=== PATIENT | female | born 1955 | race Caucasian/White ===

== ENCOUNTER 2020-05-15 08:38 | Inpatient (IN) | payer SELFPAY ==
[~2020-05-15] VITALS: Ht 154.9 cm; Wt 131.5 kg
[2020-05-15] VITALS (28 sets, daily range): BP systolic 74–116; BP diastolic 42–61
[2020-05-15] MEDS ORDERED: ACETAMINOPHEN 650 MG SUPP PR PRN (13:45)
[2020-05-15 13:47] LABS: ABG BASE EXCESS -2.1 (-2.0-2.0); ABG HCO3 24.3 MEQ/L (22.0-26.0); ABG O2 SATURATION 89.8 % (95.0-99.0); ABG PARTIAL PRESSURE CO2 48.9 mmHg (35.0-45.0); ABG PARTIAL PRESSURE O2 59.2 mmHg (75.0-100.0); ABG STANDARD HCO3 22.5 MEQ/L (22.0-26.0); ABG TOTAL CO2 25.8 MEQ/L (23.0-31.0); ABG pH (ARTERIAL) 7.315 UNITS (7.350-7.450)
--- NOTE | 2020-05-15 13:56 | REP ---
INDICATION: ETT. COMPARISON: None. TECHNIQUE: AP sitting portable exam. FINDINGS: Endotracheal tube is seen in good position at the level of the top of the arch. A nasogastric 2 is seen entering the left upper quadrant of the abdomen. Monitoring electrodes are noted along with oxygen delivery tubing. There is a pattern of extensive infiltrate occupying much of the right lung. There is some volume loss the right hemithorax as well. Air bronchograms are present throughout the right lung infiltrates. There is milder patchy perihilar infiltrate on the left as well. Right hemidiaphragm is slightly elevated. No bony abnormality. IMPRESSION: Extensive pneumonia right lung. Patchy infiltrate left perihilar region. Volume loss in the right hemithorax with air bronchograms. Endotracheal and nasogastric tubes appear in good position. <Electronically signed by Jean Chavez > 05/15/20 0419
[2020-05-15] MEDS: MIDAZOLAM INJ 2MG/2ML VIAL (J2250 PER 1MG) IV PRN ×4 (14:00→20:22)
[2020-05-15 14:07] LABS: BASO % 0.3 % (0.0-1.0); EOS # 0.1 10^3/uL (0.0-0.5); EOS % 0.8 % (0.0-3.0); HEMATOCRIT 38.4 % (36.0-47.0); HEMOGLOBIN 11.6 g/dl (12.0-15.5); LYMPH % 7.7 % (24.0-44.0); MEAN CORPUSCULAR HEMOGLOBIN 27.7 pg (27.0-33.0); MEAN CORPUSCULAR HGB CONC 30.2 g/dl (32.0-36.5); MEAN CORPUSCULAR VOLUME 91.6 fl (80.0-96.0); MONO # 0.5 10^3/uL (0.0-0.8); MONO % 3.8 % (0.0-5.0); NEUTROPHILS # 11.4 10^3/uL (1.5-8.5); PLATELET COUNT, AUTOMATED 292 10^3/uL (150-450); RED BLOOD COUNT 4.19 10^6/uL (4.00-5.40); WHITE BLOOD COUNT 13.3 10^3/uL (4.0-10.0)
[2020-05-15] MEDS ORDERED: MORPHINE 2 MG/ML 1ML VIAL (J2270) As Ordered ONE (14:14)
[2020-05-15] MEDS ORDERED: VITA250T4 PO (14:16)
[2020-05-15] MEDS ORDERED: METO50TA7 PO (14:16)
[2020-05-15] MEDS ORDERED: OCUV1CAP3 PO (14:16)
[2020-05-15] MEDS ORDERED: GARL500C2 PO (14:16)
[2020-05-15] MEDS: MORPHINE 2 MG/ML 1ML VIAL (J2270) IV PRN (14:21)
[2020-05-15] MEDS ORDERED: GLUCOSE 4GM CHEW TABLET PO PRN (14:30)
[2020-05-15] MEDS ORDERED: DEXTROSE 50% 50 ML SYRINGE IV PRN (14:30)
[2020-05-15] MEDS ORDERED: GLUCAGON INJ 1MG VIAL SC PRN (14:30)
[2020-05-15 14:54] LABS: ALBUMIN 1.7 GM/DL (3.2-5.2); ALT/SGPT 24 U/L (12-78); BILIRUBIN,TOTAL 0.3 MG/DL (0.2-1.0); BLOOD UREA NITROGEN 20 MG/DL (7-18); CALCIUM LEVEL 8.2 MG/DL (8.8-10.2); CARBON DIOXIDE LEVEL 24 MEQ/L (21-32); CHLORIDE LEVEL 109 MEQ/L (98-107); CHOLESTEROL LEVEL 120 MG/DL (< 200); CPK CREATINE PHOSPHOKINASE 53 U/L (26-192); CREATININE FOR GFR 0.92 MG/DL (0.55-1.30); GLOMERULAR FILTRATION RATE > 60.0 (>45); GLUCOSE, FASTING 141 MG/DL (70-100); LDH LACTATE DEHYDROGENASE 358 U/L (84-246); PHOSPHORUS LEVEL 5.2 MG/DL (2.5-4.9); POTASSIUM SERUM 4.9 MEQ/L (3.5-5.1); SODIUM LEVEL 140 MEQ/L (136-145); TOTAL PROTEIN 6.2 GM/DL (6.4-8.2); TRIGLYCERIDES LEVEL 134 MG/DL (<150)
[2020-05-15] MEDS: cefTRIAXone SOD 1 GM in D5W MINI-BAG PLUS 50 ML IV SCH (14:58)
[2020-05-15 15:23] LABS: ABG BASE EXCESS -1.6 (-2.0-2.0); ABG HCO3 24.7 MEQ/L (22.0-26.0); ABG O2 SATURATION 94.9 % (95.0-99.0); ABG PARTIAL PRESSURE CO2 48.5 mmHg (35.0-45.0); ABG PARTIAL PRESSURE O2 74.5 mmHg (75.0-100.0); ABG STANDARD HCO3 23.1 MEQ/L (22.0-26.0); ABG TOTAL CO2 26.2 MEQ/L (23.0-31.0); ABG pH (ARTERIAL) 7.325 UNITS (7.350-7.450)
[2020-05-15] MEDS: IPRATROPIUM 0.5MG/ALBUTEROL 2.5MG INH SOL UD 3ML (DUONEB) NEB SCH ×2 (15:31→19:44)
[2020-05-15] MEDS: propofoL 1,000 MG in IV 1 EA IV SCH (16:55)
[2020-05-15] MEDS ORDERED: NS 250 ML IV ONE (18:00)
[2020-05-15] MEDS: HumaLOG INSULIN (NovoLOG) PER UNIT SC SCH ×2 (18:00→23:32)
[2020-05-15] MEDS: PANTOPRAZOLE 40MG VIAL (C9113 PER 1) IV SCH (20:07)
[2020-05-15] MEDS: CHLORHEXIDINE GLUCONATE 0.12 % 15ML UDC (PERIDEX ORAL RINSE) MT SCH (20:08)
[2020-05-15] MEDS: HEPARIN SOD (PORCINE) 5000UNITS/ML 1ML VIAL/SYRINGE SC SCH (20:08)
[2020-05-15] MEDS: D5W/0.9% SODIUM CHLORIDE 1,000 ML IV SCH (20:08)
[2020-05-15] MEDS ORDERED: NS 500 ML IV ONE (23:15)
[2020-05-16] VITALS (55 sets, daily range): BP systolic 79–132; BP diastolic 43–82
[2020-05-16] MEDS: MIDAZOLAM INJ 2MG/2ML VIAL (J2250 PER 1MG) IV PRN ×3 (02:30→14:47)
[2020-05-16] MEDS: cefTRIAXone SOD 1 GM in D5W MINI-BAG PLUS 50 ML IV SCH ×2 (03:05→14:47)
[2020-05-16] MEDS: propofoL 1,000 MG in IV 1 EA IV SCH ×4 (03:48→21:48)
[2020-05-16 05:48] LABS: ABG BASE EXCESS -1.6 (-2.0-2.0); ABG HCO3 22.8 MEQ/L (22.0-26.0); ABG O2 SATURATION 99.3 % (95.0-99.0); ABG PARTIAL PRESSURE CO2 37.1 mmHg (35.0-45.0); ABG PARTIAL PRESSURE O2 190.9 mmHg (75.0-100.0); ABG STANDARD HCO3 23.1 MEQ/L (22.0-26.0); ABG TOTAL CO2 23.9 MEQ/L (23.0-31.0); ABG pH (ARTERIAL) 7.406 UNITS (7.350-7.450)
[2020-05-16] MEDS: HEPARIN SOD (PORCINE) 5000UNITS/ML 1ML VIAL/SYRINGE SC SCH ×3 (06:04→21:48)
[2020-05-16] MEDS: HumaLOG INSULIN (NovoLOG) PER UNIT SC SCH ×3 (06:04→17:49)
[2020-05-16 06:18] LABS: BASO % 0.2 % (0.0-1.0); EOS # 0.1 10^3/uL (0.0-0.5); EOS % 1.5 % (0.0-3.0); HEMATOCRIT 30.4 % (36.0-47.0); LYMPH # 0.9 10^3/uL (1.5-5.0); LYMPH % 10.2 % (24.0-44.0); MEAN CORPUSCULAR HEMOGLOBIN 27.6 pg (27.0-33.0); MEAN CORPUSCULAR HGB CONC 30.6 g/dl (32.0-36.5); MEAN CORPUSCULAR VOLUME 90.2 fl (80.0-96.0); MONO # 0.4 10^3/uL (0.0-0.8); MONO % 4.5 % (0.0-5.0); NEUTROPHILS # 7.4 10^3/uL (1.5-8.5); NEUTROPHILS % 82.7 % (36.0-66.0); PLATELET COUNT, AUTOMATED 262 10^3/uL (150-450); RED BLOOD COUNT 3.37 10^6/uL (4.00-5.40); WHITE BLOOD COUNT 8.9 10^3/uL (4.0-10.0)
[2020-05-16 06:27] LABS: HEMOGLOBIN 9.3 g/dl (12.0-15.5)
[2020-05-16 06:43] LABS: ALBUMIN 1.6 GM/DL (3.2-5.2); BILIRUBIN,TOTAL 0.2 MG/DL (0.2-1.0); CALCIUM LEVEL 7.3 MG/DL (8.8-10.2); CREATININE FOR GFR 1.52 MG/DL (0.55-1.30); GLOMERULAR FILTRATION RATE 36.4 (>45); PHOSPHORUS LEVEL 3.6 MG/DL (2.5-4.9); TOTAL PROTEIN 5.5 GM/DL (6.4-8.2)
[2020-05-16] MEDS: D5W/0.9% SODIUM CHLORIDE 1,000 ML IV SCH ×2 (08:35→18:48)
[2020-05-16] MEDS: IPRATROPIUM 0.5MG/ALBUTEROL 2.5MG INH SOL UD 3ML (DUONEB) NEB SCH ×4 (08:38→19:24)
--- NOTE | 2020-05-16 08:56 | REP ---
INDICATION: ETT. COMPARISON: 05/15/2020 TECHNIQUE: SINGLE PORTABLE AP VIEW OF THE CHEST WAS PERFORMED. FINDINGS: Dense infiltrates throughout the right lung are unchanged. There is a more mild degree of infiltrate the left lower lung zone, unchanged. The heart mediastinum are grossly unchanged. Endotracheal tube appears to be in good position with the tip approximately 2 cm above the karmen. Nasogastric tube traverses into the stomach. IMPRESSION: Stable exam. <Electronically signed by Aditya Herrera > 05/16/20 [id number]
[2020-05-16] MEDS: CHLORHEXIDINE GLUCONATE 0.12 % 15ML UDC (PERIDEX ORAL RINSE) MT SCH ×2 (09:30→19:37)
[2020-05-16] MEDS ORDERED: SODIUM CHLORIDE 0.9% 1000ML IV ONE (11:15)
[2020-05-16 11:59] LABS: ABG BASE EXCESS -2.5 (-2.0-2.0); ABG HCO3 22.2 MEQ/L (22.0-26.0); ABG O2 SATURATION 96.9 % (95.0-99.0); ABG PARTIAL PRESSURE CO2 37.7 mmHg (35.0-45.0); ABG PARTIAL PRESSURE O2 89.4 mmHg (75.0-100.0); ABG STANDARD HCO3 22.4 MEQ/L (22.0-26.0); ABG TOTAL CO2 23.4 MEQ/L (23.0-31.0); ABG pH (ARTERIAL) 7.388 UNITS (7.350-7.450)
--- NOTE | 2020-05-16 12:35 | HPE ---
CRITICAL CARE HISTORY AND PHYSICAL NOTE DATE OF ADMISSION: 05/15/2020 SUBJECTIVE: The patient is a 65-year-old female admitted in transfer from [facility] where she presented on the with fever and shortness of breath. Empiric antibiotics were administered. A COVID test was done twice and was found negative. Her fever defervesced. White cell count improved. However, her oxygen requirement increased progressively and today she was found to be in hypoxic respiratory failure. Endotracheal intubation was performed and following the endotracheal tube intubation, she became hypotensive requiring pressors. She was transferred to [facility] for further care. On review of her records, past medical history includes hypertension controlled with metoprolol, and macular degeneration. PHYSICAL EXAMINATION: On arrival she is ill-appearing, sedate with an endotracheal tube in place. Her temperature is 98, pulse rate 114, respirations 28, blood pressure 147/76. Case was reviewed with the transport personnel who indicate that they administered Ketamine on two occasions during the transfer. HEENT: Her pupils are equal and do respond to light. The mucosa is pink. A #8 endotracheal tube is at 24 cm. There is an orogastric tube in good position. Neck is supple. There is no meningismus. No jugular venous distention is obvious. Heart sounds are regular, somewhat distant. No appreciable murmur. Breath sounds diminished, coarse over the entire right chest with some tubular breath sounds much more prominent than over the left hemithorax. Her abdomen is soft and obese. There are bowel sounds in the right lower quadrant. Extremities show some edema. Pulses are diminished but palpable in all four extremities. DIAGNOSTIC STUDIES: We obtained a stat portable chest x-ray which shows her endotracheal tube to be in good position, orogastric tube in good position. There are diffuse patchy infiltrates over the right lung, some subtle patchy infiltrates in the left lower lobe. I obtained a state arterial blood gas and her pH was 7.31, pCO2 48.9, pO2 59, this after 15 minutes of ventilation with pressure control 25/5 with an FiO2 of 1.0. CBC, chemistries and cultures are pending. ASSESSMENT: The primary problem requiring critical attention is acute hypoxic respiratory failure. We will initiate mechanical ventilation with pressure control and increase PEEP based on the current blood gasses, recheck arterial blood gasses thereafter. Infectious Disease/pneumonia: The patient's presentation is consistent with community-acquired pneumonia and she was responding to second generation cephalosporins. We will continue with IV antibiotics, obtain sputum cultures and a respiratory panel. Hypotension: The blood pressure drop may well have been medication-related. Her blood pressure is now better. We will avoid Propofol if possible and sedate with Versed. DVT prophylaxis will be addressed with sequential hose and subcutaneous Heparin. Ulcer prophylaxis will be addressed with Protonix. Glycemic control will be addressed with fingerstick blood sugars and coverage. We will plan for nutritional support once she is hemodynamically stable. The patient's condition is critical. Prognosis is guarded. One hour and 39 minutes were spent in provision of bedside critical care and coordination, exclusive of procedure time. LUISD
--- NOTE | 2020-05-16 14:59 | CCN ---
DATE: 05/16/2020 The patient is seen in the intensive care unit intubated and mechanically ventilated, sedated with propofol and low-dose morphine with use of Versed and morphine as needed. She is critically ill. This is hospital #2, endotracheal tube day #2. At bedside her temperature is 99.1, maximum temperature for the past 24 hours 101, pulse rate 85, respirations 24 with 24 delivered, blood pressure 105/61. Intake and output for the past 24 hours are 909 in, 464 out, since midnight, 1098 in, 114 out. At bedside she is ill appearing. Oral mucosa is pink. The endotracheal tube is at 23 cm. There is an orogastric tube in place. Neck is supple. No meningismus. Heart sounds are regular. Monitor shows a sinus rhythm with occasional ectopy. Breath sounds are asymmetric with more coursing over the right side than the left. There are some crepitant rales in the bases, but air exchange is much improved over the past 12 hours. Gastrointestinal (GI): Abdomen is soft with bowel sounds in the right lower quadrant. Extremities are cool. No significant change. Muscle tone is fair. Pulses are palpable times four. DIAGNOSTIC STUDIES: Sodium is 142, potassium 4.0, chloride 110, CO2 of 25, BUN is 30, creatinine 1.52, glucose 149, range 117-175. The calcium is 7.3, phosphorus 3.6. Bilirubin 0.2, AST 27, ALT 18, alkaline phosphatase is down at 189. LDH is down at 242. Albumin is 1.6. CBC showed a white count of 8.9, down from 13.4, hemoglobin is 9.3, hematocrit 30.4, platelet count 262. Differential white cell count shows 82.7% neutrophils. An arterial blood gas shows a pH 7.40, pCO2 of 37, pO2 of 190. This on pressure control mode of ventilation. Radiographic review: I see little change in the image from yesterday. Formal report is pending. Microbiology review: Respiratory panel, including COVID testing, was negative, and Gram stain of the sputum showed no organisms. Culture is pending. On medications review, she is receiving DuoNeb every 8 hours, subcutaneous heparin 5000 every 8, Protonix 40 mg a day, ceftriaxone 1 gram every 12, morphine 2 mg as needed, propofol drip, and an intravenous (IV) of D5 and saline at 80 mL per hour. The primary problem requiring critical attention s acute respiratory failure with hypoxemia. The patient's gas exchange is improved. We will decrease her ventilating pressures and recheck arterial blood gases Pneumonia, multilobar. Gram stain is negative at this point. Respiratory panel is negative, including COVID testing. Will continue with ceftriaxone pending sputum cultures and obtain a blood culture if her temperature reaches 101. Acute kidney injury. Will give an additional bolus of saline at this point. I believe the change in renal indices is related to intravascular volume depression. We will watch closely her urine output in response to the bolus. Nutritional support was started. Will increase her tube feed rates to 60. Deep venous thrombosis (DVT) prophylaxis is in place with sequential hose and subcutaneous heparin. Ulcer prophylaxis is in place with Protonix. Glycemic control is acceptable. The patient remains critically ill. Prognosis is guarded. There was 1 hour and 26 minutes spent in the provision of bedside critical care and coordination. [facility]PITALNéstor
[2020-05-16] MEDS: MORPHINE 2 MG/ML 1ML VIAL (J2270) IV PRN ×2 (17:31→17:48)
[2020-05-16] MEDS: PANTOPRAZOLE 40MG VIAL (C9113 PER 1) IV SCH (19:37)
[2020-05-16] MEDS: ACETAMINOPHEN 325 MG/10.15 ML UDC GT PRN (19:59)
[2020-05-17] VITALS (33 sets, daily range): BP systolic 81–160; BP diastolic 51–71
[2020-05-17] MEDS: HumaLOG INSULIN (NovoLOG) PER UNIT SC SCH ×4 (00:12→17:05)
[2020-05-17] MEDS: MORPHINE 2 MG/ML 1ML VIAL (J2270) IV PRN (01:27)
[2020-05-17] MEDS: cefTRIAXone SOD 1 GM in D5W MINI-BAG PLUS 50 ML IV SCH ×2 (03:48→17:04)
[2020-05-17 04:29] LABS: BASO % 0.3 % (0.0-1.0); EOS # 0.3 10^3/uL (0.0-0.5); EOS % 3.1 % (0.0-3.0); HEMATOCRIT 29.6 % (36.0-47.0); LYMPH # 1.2 10^3/uL (1.5-5.0); LYMPH % 12.7 % (24.0-44.0); MEAN CORPUSCULAR HEMOGLOBIN 28.3 pg (27.0-33.0); MEAN CORPUSCULAR HGB CONC 30.4 g/dl (32.0-36.5); MEAN CORPUSCULAR VOLUME 93.1 fl (80.0-96.0); MONO # 0.6 10^3/uL (0.0-0.8); MONO % 6.3 % (0.0-5.0); NEUTROPHILS % 76.1 % (36.0-66.0); PLATELET COUNT, AUTOMATED 254 10^3/uL (150-450); RED BLOOD COUNT 3.18 10^6/uL (4.00-5.40); WHITE BLOOD COUNT 9.3 10^3/uL (4.0-10.0)
[2020-05-17] MEDS: propofoL 1,000 MG in IV 1 EA IV SCH ×5 (04:46→21:24)
[2020-05-17 05:13] LABS: ALBUMIN 1.3 GM/DL (3.2-5.2); BILIRUBIN,TOTAL 0.3 MG/DL (0.2-1.0); CALCIUM LEVEL 7.4 MG/DL (8.8-10.2); CREATININE FOR GFR 1.27 MG/DL (0.55-1.30); GLOMERULAR FILTRATION RATE 44.8 (>45); PHOSPHORUS LEVEL 2.9 MG/DL (2.5-4.9); POTASSIUM SERUM 4.6 MEQ/L (3.5-5.1); TOTAL PROTEIN 5.6 GM/DL (6.4-8.2)
[2020-05-17 05:48] LABS: ABG BASE EXCESS -2.5 (-2.0-2.0); ABG HCO3 22.2 MEQ/L (22.0-26.0); ABG O2 SATURATION 96.9 % (95.0-99.0); ABG PARTIAL PRESSURE CO2 38.2 mmHg (35.0-45.0); ABG STANDARD HCO3 22.3 MEQ/L (22.0-26.0); ABG TOTAL CO2 23.4 MEQ/L (23.0-31.0); ABG pH (ARTERIAL) 7.383 UNITS (7.350-7.450)
[2020-05-17] MEDS: HEPARIN SOD (PORCINE) 5000UNITS/ML 1ML VIAL/SYRINGE SC SCH ×3 (06:07→20:52)
[2020-05-17] MEDS: MIDAZOLAM INJ 2MG/2ML VIAL (J2250 PER 1MG) IV PRN ×3 (06:12→20:52)
[2020-05-17] MEDS: D5W/0.9% SODIUM CHLORIDE 1,000 ML IV SCH ×2 (07:14→17:04)
[2020-05-17] MEDS: IPRATROPIUM 0.5MG/ALBUTEROL 2.5MG INH SOL UD 3ML (DUONEB) NEB SCH ×4 (07:17→19:32)
--- NOTE | 2020-05-17 07:49 | REP ---
INDICATION: ETT. COMPARISON: 05/16/2020 and 05/15/2020.. TECHNIQUE: Single AP sitting view. FINDINGS: Endotracheal tube is seen in good position 2 cm above the karmen at the level of the transverse aorta. NG tube enters the left upper quadrant. There is extensive infiltrate throughout the right hemithorax and increasing infiltrates are noted in the left parahilar region today. IMPRESSION: Increasing left parahilar infiltrates. Extensive opacification remains in the right lung. <Electronically signed by Jean Chavez > 05/17/20 [id number]
[2020-05-17] MEDS ORDERED: LIDOCAINE 2% MDV 20ML VIAL As Ordered ONE (09:38)
[2020-05-17] MEDS: CHLORHEXIDINE GLUCONATE 0.12 % 15ML UDC (PERIDEX ORAL RINSE) MT SCH ×2 (10:14→20:51)
[2020-05-17] MEDS ORDERED: MIDAZOLAM INJ 2MG/2ML VIAL (J2250 PER 1MG) IV ONE (10:30)
[2020-05-17] MEDS ORDERED: LIDOCAINE 2% MDV 20ML VIAL XX ONE (10:30)
--- NOTE | 2020-05-17 13:56 | CCN ---
DATE: 05/17/2020 SUBJECTIVE: The patient was seen in the Intensive Care Unit intubated, mechanically ventilated and sedate to a Pierce level 2, comfortable and cooperative with interventions from nursing. OBJECTIVE: Her temperature is 98.6. T-max for the past 24 hours 101.4. Pulse rate 82, respirations 25, blood pressure 108/59. I and O for the past 24 hours 4172 in and 679 out, since midnight 1028 in and 185 out. At bedside, she is ill appearing. Her neck is supple. No meningismus. There is a #7 endotracheal tube at 23 cm. Orogastric tube is in good position. Neck is supple. No meningismus. Heart sounds are regular with occasional ectopy on the monitor. Breath sounds are coarse on the right, more clear on the left with some scattered rhonchi. Abdomen is soft with intact bowel sounds. No palpable mass. Extremities are cool. Pulses are palpable x4. DIAGNOSTIC STUDIES: Her white cell count is about the same today at 9.3. Hemoglobin is down slightly at 9. Hematocrit 29.6. Platelet count is 254,000. Differential. White cell count shows 76% neutrophils. There are no bands reported. Her sodium is 142, potassium 4.6, chloride 115, CO2 20, BUN 30, creatinine 1.27 down from 1.52. Glucose is 118, range 113 to 175. Her calcium is 7.4, albumin 1.3, AST 35, ALT 20, alkaline phosphatase 238, LDH 387. Arterial blood gas showed a pH of 7.38, pCO2 38, pO2 87, and pressure control was 60% oxygen. Chest imaging was performed and shows little change from yesterday, perhaps a slight increase in the left base infiltrates. Microbiology review reveals sputum showing no bacteria and respiratory panel negative. MEDICATIONS: On medication review, this is day #3 of ceftriaxone. She is receiving subcutaneous heparin, Protonix 40 mg a day, Propofol drip, DuoNebs q.i.d., and midazolam as needed. ASSESSMENT/PLAN: The primary problem requiring critical attention is acute respiratory failure. Her A-a gradient remains elevated, but arterial blood gases at this point are acceptable so we will continue with the current ventilator settings pending any clinical change. Pneumonia: She has multilobar involvement with infiltrates, but so far cultures are negative. Given her stalled improvement, I have discussed the option of bronchoscopy for pure culture of her lung, and the patient has consented. We will proceed with fiberoptic bronchoscopy for protected brushing and washing. Acute kidney injury: Numbers are better today as is her urine output with adequate hydration. Nutritional support is being addressed with tube feedings at 60 cc per hour. She is tolerating these. There is minimal residual. Glycemic control is acceptable. Will continue with finger stick blood sugars and coverage. DVT prophylaxis is being addressed with both sequential hose and subcutaneous heparin. There is no clinical evidence of DVT. Ulcer prophylaxis being addressed with Protonix as well as tube feedings. The patient's IV access is limited. Given the potential need for prolonged antibiotic therapy, we will ask for a midline catheter to be placed. I have been in contact with the patient's family through Reuben Zaragoza, the designated family underwriting account representative. All questions have been answered. The family is aware of the critical nature of her illness. One hour and 28 minutes was spent in the provision of bedside critical care and coordination, exclusive of procedure time. ARELIS
[2020-05-17] MEDS ORDERED: LIDOCAINE 1% MDV 20ML VIAL As Ordered ONE (14:54)
[2020-05-17] MEDS: PANTOPRAZOLE 40MG VIAL (C9113 PER 1) IV SCH (20:52)
[2020-05-18] VITALS (33 sets, daily range): BP systolic 78–135; BP diastolic 46–63
[2020-05-18] MEDS: HumaLOG INSULIN (NovoLOG) PER UNIT SC SCH ×4 (00:01→17:53)
[2020-05-18] MEDS: MIDAZOLAM INJ 2MG/2ML VIAL (J2250 PER 1MG) IV PRN ×5 (00:29→20:45)
[2020-05-18] MEDS: propofoL 1,000 MG in IV 1 EA IV SCH ×2 (00:47→06:16)
[2020-05-18] MEDS: cefTRIAXone SOD 1 GM in D5W MINI-BAG PLUS 50 ML IV SCH ×2 (02:49→14:42)
[2020-05-18] MEDS: ACETAMINOPHEN 325 MG/10.15 ML UDC GT PRN (03:52)
[2020-05-18] MEDS ORDERED: REFRIGERATOR IV KEYS XX PRN (04:15)
[2020-05-18] MEDS: MIDAZOLAM HCL 100 MG in D5W 80 ML IV SCH (04:54)
[2020-05-18] MEDS: SODIUM CHLORIDE 0.9% INJ 10 ML SYR IV SCH ×2 (04:54→17:53)
[2020-05-18 05:04] LABS: BASO % 0.3 % (0.0-1.0); EOS # 0.3 10^3/uL (0.0-0.5); EOS % 2.2 % (0.0-3.0); HEMATOCRIT 30.8 % (36.0-47.0); HEMOGLOBIN 9.3 g/dl (12.0-15.5); LYMPH # 1.4 10^3/uL (1.5-5.0); LYMPH % 10.4 % (24.0-44.0); MEAN CORPUSCULAR HEMOGLOBIN 28.1 pg (27.0-33.0); MEAN CORPUSCULAR HGB CONC 30.2 g/dl (32.0-36.5); MEAN CORPUSCULAR VOLUME 93.1 fl (80.0-96.0); MONO # 0.8 10^3/uL (0.0-0.8); NEUTROPHILS # 10.8 10^3/uL (1.5-8.5); PLATELET COUNT, AUTOMATED 346 10^3/uL (150-450); RED BLOOD COUNT 3.31 10^6/uL (4.00-5.40); WHITE BLOOD COUNT 13.6 10^3/uL (4.0-10.0)
[2020-05-18 05:24] LABS: BILIRUBIN,TOTAL 0.2 MG/DL (0.2-1.0); CALCIUM LEVEL 7.3 MG/DL (8.8-10.2); CREATININE FOR GFR 1.14 MG/DL (0.55-1.30); GLOMERULAR FILTRATION RATE 50.8 (>45); PHOSPHORUS LEVEL 3.3 MG/DL (2.5-4.9); POTASSIUM SERUM 4.9 MEQ/L (3.5-5.1)
[2020-05-18 05:25] LABS: ALBUMIN 1.6 GM/DL (3.2-5.2); TOTAL PROTEIN 5.6 GM/DL (6.4-8.2)
[2020-05-18 05:28] LABS: ABG BASE EXCESS -4.4 (-2.0-2.0); ABG HCO3 23.2 MEQ/L (22.0-26.0); ABG O2 SATURATION 94.8 % (95.0-99.0); ABG PARTIAL PRESSURE CO2 55.6 mmHg (35.0-45.0); ABG STANDARD HCO3 20.7 MEQ/L (22.0-26.0); ABG TOTAL CO2 24.9 MEQ/L (23.0-31.0); ABG pH (ARTERIAL) 7.238 UNITS (7.350-7.450)
[2020-05-18] MEDS: HEPARIN SOD (PORCINE) 5000UNITS/ML 1ML VIAL/SYRINGE SC SCH ×3 (06:05→21:14)
[2020-05-18] MEDS ORDERED: methylPREDNISolone 125MG 2ML VIAL IV ONE (06:15)
[2020-05-18] MEDS: D5W/0.9% SODIUM CHLORIDE 1,000 ML IV SCH ×2 (06:16→18:45)
[2020-05-18] MEDS: MORPHINE 2 MG/ML 1ML VIAL (J2270) IV PRN ×3 (06:28→20:45)
--- NOTE | 2020-05-18 06:48 | REPVR ---
PROCEDURE INFORMATION: Exam: XR Chest, 1 View Exam date and time: 05/18/2020 6:00 AM Age: 65 years old Clinical indication: Other: Ett TECHNIQUE: Imaging protocol: XR of the chest Views: 1 view. COMPARISON: CR PORTABLE CHEST X-RAY 05/17/2020 6:18 AM FINDINGS: Tubes, catheters and devices: Endotracheal tube, feeding tube, right PICC line again demonstrated. The endotracheal tube terminates 2.6 cm above the karmen. Lungs: COPD and interstitial prominence. Stable asymmetric airspace disease, right greater than left. Pleural space: No significant pleural effusion. Heart/Mediastinum: Cardiac silhouette upper limits of normal in size. Bones/joints: Degenerative change. When correlating with the previous study, no significant interval changes are present. IMPRESSION: Stable appearance of the chest, not significantly changed from 05/17/2020 . Electronically signed by: Wilner Tineo On 05/18/2020 06:48:13 AM
[2020-05-18] MEDS ORDERED: SODIUM CHLORIDE 0.9% 1000ML IV ONE (07:15)
[2020-05-18] MEDS: IPRATROPIUM 0.5MG/ALBUTEROL 2.5MG INH SOL UD 3ML (DUONEB) NEB SCH ×4 (07:35→19:28)
[2020-05-18 08:08] LABS: ABG BASE EXCESS -5.2 (-2.0-2.0); ABG HCO3 21.4 MEQ/L (22.0-26.0); ABG O2 SATURATION 93.9 % (95.0-99.0); ABG PARTIAL PRESSURE CO2 46.8 mmHg (35.0-45.0); ABG PARTIAL PRESSURE O2 73.2 mmHg (75.0-100.0); ABG STANDARD HCO3 20.1 MEQ/L (22.0-26.0); ABG TOTAL CO2 22.9 MEQ/L (23.0-31.0); ABG pH (ARTERIAL) 7.279 UNITS (7.350-7.450)
--- NOTE | 2020-05-18 08:11 | RO ---
DATE OF OPERATION: 05/17/2020 PREOPERATIVE DIAGNOSIS: Panlobular pneumonia with mucous plugging. POSTOPERATIVE DIAGNOSIS: Panlobular pneumonia with mucous plugging. PROCEDURE PERFORMED: Fiberoptic bronchoscopy, SURGEON: Demetrius Regan MD PROCEDURE NOTE: The patient was seen and procedure explained to the patient as were all the possible complications pertaining thereto and informed consent was obtained. The patient was on mechanical ventilation at the time and endotracheal tube was in place. Fiberoptic bronchoscope was prepared and placed through the endotracheal tube and into the trachea. The karmen was sharp, the end of the endotracheal tube was found in optimal position proximal to the karmen. The airways of the left and right lung were examined in subsegmental fashion for any evidence of tumor, ulcer, necrosis, vessel engorgement or mucosal irregularity. The only findings were of hyperemic mucosa with some scattered mucous, some plugging of the small airways was appreciated. There was no gross pus appreciated. The bronchoscope was placed into the right lower lobe and transbronchoscopic plug telescoping catheter microbiologic brush was obtained. The sample was transported sterilely to the lab. The airways were then lavaged with saline. When no further secretions could be removed the bronchoscope was retracted out through the patients endotracheal tube. She tolerated the procedure well, there were no complications. ARELIS
[2020-05-18] MEDS: CHLORHEXIDINE GLUCONATE 0.12 % 15ML UDC (PERIDEX ORAL RINSE) MT SCH ×2 (08:19→21:14)
[2020-05-18 10:58] LABS: C REACTIVE PROTEIN QUANTITATIV 18.9 MG/DL (0.00-0.30)
[2020-05-18 12:37] LABS: ABG BASE EXCESS -6.9 (-2.0-2.0); ABG HCO3 19.3 MEQ/L (22.0-26.0); ABG O2 SATURATION 93.4 % (95.0-99.0); ABG PARTIAL PRESSURE CO2 41.3 mmHg (35.0-45.0); ABG PARTIAL PRESSURE O2 70.7 mmHg (75.0-100.0); ABG STANDARD HCO3 18.8 MEQ/L (22.0-26.0); ABG TOTAL CO2 20.5 MEQ/L (23.0-31.0); ABG pH (ARTERIAL) 7.287 UNITS (7.350-7.450)
--- NOTE | 2020-05-18 14:15 | CCN ---
DATE: 05/18/2020 SUBJECTIVE: The patient was seen in the Intensive Care Unit intubated, mechanically ventilated, and critically ill. She had a difficult night with rapid respiratory rate requiring changes in sedation and ventilating pressures. PHYSICAL EXAMINATION: At this point, her temperature is 99.7, T-max for the past 24 hours 101.8, pulse rate 81, respirations 38, blood pressure 103/55. I and O for the past 24 hours: 3645 in and 895 out, since midnight 1026 in and 185 out. At bedside, she is ill appearing, sedate. Does respond to voice and moves appropriately. Her oral mucosa is pink. There is a #7 endotracheal tube at 23 cm. Orogastric tube is in good position. Neck is supple. Heart sounds are regular, somewhat distant. No significant ectopy is noted today. Breath sounds are coarse and diminished over the right hemithorax. Some coarseness in the left base. Scattered large airway sounds. No other focal abnormalities appreciated. The chest is symmetric, moves symmetrically. She is triggering the mechanical ventilator spontaneously. Abdomen is soft, obese, with intact bowel sounds. Extremities show no significant edema. Peripheral pulses are palpable x4. DIAGNOSTIC STUDIES: Her white cell count is up slightly at 13.6. Hemoglobin is improved to 9.3. Hematocrit is 30.8. Platelet count is 346,000. Differential: White cell count shows 79% neutrophils. Sodium 145, potassium 4.9, chloride 115, CO2 25, BUN 27, creatinine is down to 1.14. Glucose is 130, range 50-158. AST is up slightly at 50. ALT is normal at 33. Albumin is up at 1.6. Her LDH is down at 315. Phosphorus is normal at 3.3. Bilirubin 0.2. Her calcium is 7.3. An arterial blood gas was performed on pressure control, rate 16, peak pressure 24 with PEEP of 8, FiO2 0.8. The pH was 7.28, pCO2 46, pO2 73. Chest x-ray continues to show heavy infiltrates throughout the right lung, some patchy infiltrates in the left lower lobe, little change from previous images. On microbiology review, washings and brushings as well as previous sputum cultures are all showing no growth at this point. I have asked the lab to do a gram stain on the washings. MEDICATIONS: On medications review, this is day #3 of ceftriaxone. ASSESSMENT AND PLAN: The primary problem requiring critical attention is acute hypoxic respiratory failure. Her A-a gradient remains elevated, and there has been little change in the chest x-ray. Will add steroids as there appears to be a significant inflammatory component. The patient does seem to do better with Versed anesthetic than propofol, and we are weaning over to that. She also responds well to p.r.n. morphine. Multilobar pneumonia: Cultures remain pending. We will continue for the time being with ceftriaxone. Acute kidney injury: Urine output and creatinine are much improved today. She does respond to fluids when urine output begins to lag. Nutritional support is being addressed with tube feedings. She has tolerated 60 cc per hour without significant residual. Fluid volume is positive for the three day hospital stay. However, I believe she came somewhat dehydrated and is at this point approximately euvolemic. Will continue IV fluids at 8 ccs/hr and tube feedings. DVT prophylaxis being addressed with subcutaneous heparin and sequential hose. Glycemic control is acceptable. She had one low blood sugar. We will continue close monitoring with finger stick blood sugars. The patient's condition is critical. Prognosis is guarded. The family will be updated through their field sales representative. One hour and 29 minutes was spent in the provision of bedside critical care and coordination exclusive of any time spent in the performance of procedures. ARELIS
[2020-05-18] MEDS: methylPREDNISolone 125MG 2ML VIAL IV SCH ×2 (14:40→21:14)
--- NOTE | 2020-05-18 15:06 | REP ---
PROCEDURE NAME: PICC LINE INSERTION W/SITERITE CLINICAL INFORMATION: porr iv access. COMPARISON: None. PROCEDURE DESCRIPTION: The procedure was performed by AWA Ruvalcaba, under the direct supervision of Dr. Herrera. The risks and benefits of the procedure were explained to the patient's healthcare proxy via phone and an informed consent was obtained verbally. Directly prior to the start of the procedure a formal time-out was completed in the procedure room. Due to the patient's current status of being intubated the procedure was done in the ICU at bedside. The right medial brachial vein was localized using ultrasound guidance. The skin was prepped and draped in sterile fashion. One mL of 1% lidocaine 10 mg/mL was used as a local anesthetic. Using ultrasound guidance the right medial brachial vein was cannulated, and a 0.018 guidewire was inserted and advanced to the level of SVC using portable chest x-ray guidance. The needle was removed and a 5.5 Croatian dilator and peel-away sheath was inserted over the guidewire. A 5.5 Croatian dual lumen catheter was cut to a length of the 40 cm. The dilator was removed and the catheter was inserted over the guidewire with the tip ending at the level of the SVC. The peel-away sheath was removed and the catheter was flushed with heparinized saline as per hospital protocol. The catheter was affixed to the skin and a sterile dressing was applied. All imaging guidance was done with serial chest x-rays at the patient's bedside. The patient tolerated the procedure well and there were no immediate complications. CONCLUSION: Successful PICC line insertion into the right medial brachial vein. <Electronically signed by Kendra Miller > 05/17/20 [id number] <Electronically signed by Aditya Herrera > 05/18/20 [id number]
[2020-05-18] MEDS: PANTOPRAZOLE 40MG VIAL (C9113 PER 1) IV SCH (21:14)
[2020-05-19] VITALS (23 sets, daily range): BP systolic 118–155; BP diastolic 57–73; O2SAT 90
[2020-05-19] MEDS: HumaLOG INSULIN (NovoLOG) PER UNIT SC SCH ×4 (00:13→17:17)
[2020-05-19] MEDS: cefTRIAXone SOD 1 GM in D5W MINI-BAG PLUS 50 ML IV SCH ×2 (03:24→14:01)
[2020-05-19] MEDS: MIDAZOLAM HCL 100 MG in D5W 80 ML IV SCH (03:32)
[2020-05-19] MEDS: MIDAZOLAM INJ 2MG/2ML VIAL (J2250 PER 1MG) IV PRN ×3 (03:36→20:09)
[2020-05-19] MEDS: MORPHINE 2 MG/ML 1ML VIAL (J2270) IV PRN ×2 (03:37→21:50)
[2020-05-19] MEDS: HEPARIN SOD (PORCINE) 5000UNITS/ML 1ML VIAL/SYRINGE SC SCH ×3 (05:18→21:16)
[2020-05-19] MEDS: SODIUM CHLORIDE 0.9% INJ 10 ML SYR IV SCH ×2 (05:19→16:19)
[2020-05-19] MEDS: methylPREDNISolone 125MG 2ML VIAL IV SCH ×3 (05:19→21:15)
[2020-05-19 05:26] LABS: BASO % 0.1 % (0.0-1.0); HEMATOCRIT 29.2 % (36.0-47.0); HEMOGLOBIN 8.8 g/dl (12.0-15.5); LYMPH # 0.7 10^3/uL (1.5-5.0); LYMPH % 4.8 % (24.0-44.0); MEAN CORPUSCULAR HEMOGLOBIN 27.2 pg (27.0-33.0); MEAN CORPUSCULAR HGB CONC 30.1 g/dl (32.0-36.5); MEAN CORPUSCULAR VOLUME 90.4 fl (80.0-96.0); MONO # 0.3 10^3/uL (0.0-0.8); MONO % 2.1 % (0.0-5.0); NEUTROPHILS # 12.3 10^3/uL (1.5-8.5); NEUTROPHILS % 91.2 % (36.0-66.0); PLATELET COUNT, AUTOMATED 387 10^3/uL (150-450); RED BLOOD COUNT 3.23 10^6/uL (4.00-5.40); WHITE BLOOD COUNT 13.5 10^3/uL (4.0-10.0)
[2020-05-19 06:01] LABS: ALBUMIN 1.5 GM/DL (3.2-5.2); BILIRUBIN,TOTAL 0.3 MG/DL (0.2-1.0); CALCIUM LEVEL 7.9 MG/DL (8.8-10.2); CREATININE FOR GFR 1.02 MG/DL (0.55-1.30); GLOMERULAR FILTRATION RATE 57.7 (>45); PHOSPHORUS LEVEL 3.3 MG/DL (2.5-4.9); POTASSIUM SERUM 4.9 MEQ/L (3.5-5.1); TOTAL PROTEIN 5.9 GM/DL (6.4-8.2)
[2020-05-19 06:06] LABS: ABG BASE EXCESS -2.9 (-2.0-2.0); ABG HCO3 22.6 MEQ/L (22.0-26.0); ABG O2 SATURATION 96.7 % (95.0-99.0); ABG PARTIAL PRESSURE CO2 42.1 mmHg (35.0-45.0); ABG PARTIAL PRESSURE O2 91.4 mmHg (75.0-100.0); ABG TOTAL CO2 23.9 MEQ/L (23.0-31.0); ABG pH (ARTERIAL) 7.347 UNITS (7.350-7.450)
[2020-05-19] MEDS: IPRATROPIUM 0.5MG/ALBUTEROL 2.5MG INH SOL UD 3ML (DUONEB) NEB SCH ×4 (07:30→19:37)
--- NOTE | 2020-05-19 08:00 | REP ---
INDICATION: ETT. COMPARISON: Comparison portable chest x-ray May 18 and May 17, 2020.. TECHNIQUE: Sitting AP portable exam. FINDINGS: Extensive heterogeneous consolidation is seen throughout the right lung as before. Patchy infiltrates are noted in the left perihilar and left lower lobe region. These are felt to be unchanged from May 17, 2020. Endotracheal tube remains in good position. NG tube enters the left upper quadrant. Right-sided PICC catheter is seen in place it with its tip in the expected location of superior vena cava. Oxygen delivery tubing and monitoring electrodes are seen. Heart is mildly enlarged unchanged. IMPRESSION: Extensive infiltrates persist right greater than left. <Electronically signed by Jean Chavez > 05/19/20 [id number]
[2020-05-19] MEDS: CHLORHEXIDINE GLUCONATE 0.12 % 15ML UDC (PERIDEX ORAL RINSE) MT SCH ×2 (09:26→20:14)
[2020-05-19] MEDS: AZITHROMYCIN INJ 500 MG, VIAL MATE ADAPTER 1 EACH in D5W 250 ML IV SCH (09:31)
[2020-05-19] MEDS: D5W/0.9% SODIUM CHLORIDE 1,000 ML IV SCH (09:33)
--- NOTE | 2020-05-19 11:00 | CCN ---
DATE: 05/19/2020 START TIME: 829 STOP TIME: 908 SUBJECTIVE: I attended Katrin Lau in the intensive care unit. The patient has been examined and chart reviewed. She remains intubated, sedated, and mechanically ventilated. We have been able to lighten her sedation somewhat this morning, but she had a significant increase in cough with that resulting in increased FiO2 requirements. VITAL SIGNS: T-max overnight 98.3, blood pressure 120 to 150s, heart rate generally in the 80s, respiratory rate generally in the 20s without accessory muscle use. INTAKE AND OUTPUT (I&O): Midnight to midnight 3918 mL in with 835 mL out. LABORATORY DATA: Most recent laboratories show a white blood cell count of 13.5, hemoglobin 8.8, platelet count of 387,000, 91% segs. No bands. Sodium 145, K 4.9, chloride 115, CO2 of 23, BUN 39, creatinine 1.02, glucose 231. Arterial blood gases done this morning under pressure control mode PEEP of 8, FiO2 of 85%, pH 7.47, pCO2 of 42.1, and pO2 of 91.4 with saturation of 96.7%. Blood cultures remain negative. Bronchial brush cultures are pending. IMAGING: Chest x-ray done this morning shows lines and tubes in good position. No changes in her bilateral fluffy infiltrates, right greater than left. MEDICATIONS: Medication list has been reviewed. She remains on Rocephin. She is on Versed intravenously for sedation. She remains on Solu-Medrol 80 mg IV q. 8 hours. OBJECTIVE: GENERAL: On exam, she is easily arousable, awake, alert, and follows commands. HEENT: Pupils react. Sclerae clear. Trachea is in the midline. CHEST: Shows diffuse scattered rhonchi. Expansion is symmetric. No focal wheeze. No obvious rubs. CARDIAC: Irregular. Peripheral pulses are palpable. Trace edema at best. ABDOMEN: Obese, soft, and nontender with active bowel sounds. No convincing organomegaly or masses. EXTREMITIES: No cyanosis or clubbing. NEUROLOGIC: As outlined above and she is grossly nonfocal. She is currently tolerating tube feeds. No bowel movement as of yet. ASSESSMENT: The most pressing problems requiring my presence at the bedside 1. Hypoxemic respiratory failure still ventilator requiring. 2. Community-acquired pneumonia. 3. History of hypertension. 4. Renal insufficiency, improving. RECOMMENDATIONS: At this point, we will continue her current level of ventilatory support. She is not in any position for aggressive weaning in view of her continued high FiO2 requirements. General manipulations will be made to her ventilator settings as we are able. For now, we will continue her on Rocephin. We may or may not add an antifungal based on her cultures from several days ago, but await her repeat bronchoscopy cultures from yesterday. Her urine output and renal function have improved with increased intravenous (IV) fluids. Hemoglobin mildly diminished and I believe that an element of that is due to her increased IV fluids and a dilutional effect. She is tolerating tube feeds. We will continue as outlined above. She is on ulcer and deep vein thrombosis (DVT) prophylaxis. I will try to communicate with the family spokesperson today and keep them updated. Overall in view of the above; however, her prognosis remains very guarded at best. We will continue to treat her maximally. We will begin weaning as soon as she is able. I left the bedside at 0909 hours. 39 minutes of critical care time at the bedside not including procedures. LUISD
[2020-05-19] MEDS: FLUCONAZOLE 100 MG in IV 1 EA IV SCH (11:11)
[2020-05-19] MEDS: PANTOPRAZOLE 40MG VIAL (C9113 PER 1) IV SCH (20:09)
[2020-05-20] VITALS (25 sets, daily range): BP systolic 111–149; BP diastolic 54–88; O2SAT 92–96
[2020-05-20] MEDS: D5W/0.9% SODIUM CHLORIDE 1,000 ML IV SCH ×3 (01:08→22:18)
[2020-05-20] MEDS: HumaLOG INSULIN (NovoLOG) PER UNIT SC SCH ×4 (01:15→17:15)
[2020-05-20] MEDS: cefTRIAXone SOD 1 GM in D5W MINI-BAG PLUS 50 ML IV SCH ×2 (03:33→14:30)
[2020-05-20] MEDS: MIDAZOLAM HCL 100 MG in D5W 80 ML IV SCH ×3 (04:27→22:49)
[2020-05-20] MEDS: MORPHINE 2 MG/ML 1ML VIAL (J2270) IV PRN ×2 (04:45→21:09)
[2020-05-20 04:46] LABS: BASO % 0.1 % (0.0-1.0); HEMATOCRIT 31.2 % (36.0-47.0); HEMOGLOBIN 9.4 g/dl (12.0-15.5); LYMPH # 0.8 10^3/uL (1.5-5.0); LYMPH % 5.2 % (24.0-44.0); MEAN CORPUSCULAR HEMOGLOBIN 27.2 pg (27.0-33.0); MEAN CORPUSCULAR HGB CONC 30.1 g/dl (32.0-36.5); MEAN CORPUSCULAR VOLUME 90.2 fl (80.0-96.0); MONO # 0.2 10^3/uL (0.0-0.8); MONO % 1.6 % (0.0-5.0); NEUTROPHILS % 90.8 % (36.0-66.0); PLATELET COUNT, AUTOMATED 480 10^3/uL (150-450); RED BLOOD COUNT 3.46 10^6/uL (4.00-5.40); WHITE BLOOD COUNT 15.4 10^3/uL (4.0-10.0)
[2020-05-20 05:13] LABS: ALBUMIN 1.6 GM/DL (3.2-5.2); BILIRUBIN,TOTAL 0.1 MG/DL (0.2-1.0); CALCIUM LEVEL 8.4 MG/DL (8.8-10.2); CREATININE FOR GFR 1.04 MG/DL (0.55-1.30); GLOMERULAR FILTRATION RATE 56.4 (>45); PHOSPHORUS LEVEL 2.6 MG/DL (2.5-4.9); POTASSIUM SERUM 4.9 MEQ/L (3.5-5.1); TOTAL PROTEIN 6.6 GM/DL (6.4-8.2)
[2020-05-20 05:53] LABS: ABG BASE EXCESS -2.9 (-2.0-2.0); ABG HCO3 21.2 MEQ/L (22.0-26.0); ABG O2 SATURATION 99.2 % (95.0-99.0); ABG PARTIAL PRESSURE CO2 34.1 mmHg (35.0-45.0); ABG PARTIAL PRESSURE O2 155.5 mmHg (75.0-100.0); ABG STANDARD HCO3 22.1 MEQ/L (22.0-26.0); ABG TOTAL CO2 22.2 MEQ/L (23.0-31.0); ABG pH (ARTERIAL) 7.411 UNITS (7.350-7.450)
[2020-05-20] MEDS: SODIUM CHLORIDE 0.9% INJ 10 ML SYR IV SCH ×2 (06:00→17:16)
[2020-05-20] MEDS: HEPARIN SOD (PORCINE) 5000UNITS/ML 1ML VIAL/SYRINGE SC SCH ×3 (06:18→21:12)
[2020-05-20] MEDS: methylPREDNISolone 125MG 2ML VIAL IV SCH ×3 (06:20→21:13)
[2020-05-20] MEDS: IPRATROPIUM 0.5MG/ALBUTEROL 2.5MG INH SOL UD 3ML (DUONEB) NEB SCH ×4 (07:13→19:26)
--- NOTE | 2020-05-20 08:17 | REP ---
INDICATION: ETT. COMPARISON: May 19, 2020. And May 18, 2020. TECHNIQUE: Semi-erect upright AP view. FINDINGS: NG tube enters the left upper quadrant of the abdomen. Endotracheal tube is seen in place at today terminating at the karmen. This is a little low in position. Monitoring electrodes are seen. Right-sided PICC catheter remains in place with its tip in the expected location of the superior vena cava. Right-sided infiltrates are again noted extensively throughout the hemithorax unchanged. Perihilar infiltrates and left base infiltrates persist on on the left. No new infiltrate is seen. IMPRESSION: Endotracheal tube tip is at the karmen today. This should probably be withdrawn 2-3 cm. Parenchymal consolidation unchanged. <Electronically signed by Jean Chavez > 05/20/20 [id number]
[2020-05-20] MEDS: BISACODYL 10 MG SUPP PR PRN (10:14)
[2020-05-20] MEDS: CHLORHEXIDINE GLUCONATE 0.12 % 15ML UDC (PERIDEX ORAL RINSE) MT SCH ×2 (10:14→21:13)
[2020-05-20] MEDS: AZITHROMYCIN INJ 500 MG, VIAL MATE ADAPTER 1 EACH in D5W 250 ML IV SCH (10:14)
[2020-05-20] MEDS: FLUCONAZOLE 100 MG in IV 1 EA IV SCH (12:18)
[2020-05-20] MEDS: PANTOPRAZOLE 40MG VIAL (C9113 PER 1) IV SCH (21:13)
[2020-05-20] MEDS: ACETAMINOPHEN 325 MG/10.15 ML UDC GT PRN (21:13)
[2020-05-20] MEDS: METOCLOPRAMIDE INJ 10MG/2ML VIAL (J2765 PER 1) IV SCH (22:17)
[2020-05-21] VITALS (26 sets, daily range): BP systolic 110–142; BP diastolic 55–78; O2SAT 89–96
[2020-05-21] MEDS: HumaLOG INSULIN (NovoLOG) PER UNIT SC SCH ×5 (00:42→23:33)
[2020-05-21] MEDS: MORPHINE 2 MG/ML 1ML VIAL (J2270) IV PRN ×3 (00:42→21:15)
[2020-05-21] MEDS: MIDAZOLAM INJ 2MG/2ML VIAL (J2250 PER 1MG) IV PRN ×3 (01:21→20:23)
[2020-05-21] MEDS: cefTRIAXone SOD 1 GM in D5W MINI-BAG PLUS 50 ML IV SCH ×2 (02:44→14:15)
[2020-05-21] MEDS: METOCLOPRAMIDE INJ 10MG/2ML VIAL (J2765 PER 1) IV SCH ×4 (04:55→21:15)
[2020-05-21] MEDS: HEPARIN SOD (PORCINE) 5000UNITS/ML 1ML VIAL/SYRINGE SC SCH ×3 (05:12→21:14)
[2020-05-21] MEDS: methylPREDNISolone 125MG 2ML VIAL IV SCH ×3 (05:12→21:15)
[2020-05-21] MEDS: SODIUM CHLORIDE 0.9% INJ 10 ML SYR IV SCH ×2 (05:12→17:09)
[2020-05-21 05:30] LABS: ABG BASE EXCESS -2.8 (-2.0-2.0); ABG HCO3 22.1 MEQ/L (22.0-26.0); ABG O2 SATURATION 96.4 % (95.0-99.0); ABG PARTIAL PRESSURE CO2 38.5 mmHg (35.0-45.0); ABG PARTIAL PRESSURE O2 84.4 mmHg (75.0-100.0); ABG STANDARD HCO3 22.1 MEQ/L (22.0-26.0); ABG TOTAL CO2 23.2 MEQ/L (23.0-31.0); ABG pH (ARTERIAL) 7.376 UNITS (7.350-7.450)
[2020-05-21 05:36] LABS: HEMATOCRIT 30.4 % (36.0-47.0); HEMOGLOBIN 9.5 g/dl (12.0-15.5); MEAN CORPUSCULAR HGB CONC 31.3 g/dl (32.0-36.5); MEAN CORPUSCULAR VOLUME 89.7 fl (80.0-96.0); PLATELET COUNT, AUTOMATED 501 10^3/uL (150-450); RED BLOOD COUNT 3.39 10^6/uL (4.00-5.40); WHITE BLOOD COUNT 12.3 10^3/uL (4.0-10.0)
[2020-05-21 06:11] LABS: ALBUMIN 1.8 GM/DL (3.2-5.2); BILIRUBIN,TOTAL 0.1 MG/DL (0.2-1.0); CREATININE FOR GFR 1.06 MG/DL (0.55-1.30); GLOMERULAR FILTRATION RATE 55.2 (>45); PHOSPHORUS LEVEL 3.3 MG/DL (2.5-4.9); POTASSIUM SERUM 5.8 MEQ/L (3.5-5.1); TOTAL PROTEIN 5.8 GM/DL (6.4-8.2)
[2020-05-21] MEDS: IPRATROPIUM 0.5MG/ALBUTEROL 2.5MG INH SOL UD 3ML (DUONEB) NEB SCH ×4 (07:03→19:37)
--- NOTE | 2020-05-21 08:30 | REP ---
INDICATION: ETT. 6:41 a.m. film. COMPARISON: May 20, 2027 05 a.m... TECHNIQUE: Single upright AP radiograph. FINDINGS: Endotracheal tube remains in place in good position at the level of the transverse aorta approximately a cm and half above the karmen. NG tube enters the left upper quadrant. Right sided PICC line remains in place with its tip in the expected location of superior vena cava. Monitoring electrodes and oxygen delivery apparatus are seen. Extensive consolidation persists in the right lung and in the left perihilar region. There appears to be some clearing. No new infiltrate. IMPRESSION: No new infiltrate. Previously noted infiltrates appear a little less prominent. <Electronically signed by Jean Chavez > 05/21/20 2088
[2020-05-21] MEDS: AZITHROMYCIN INJ 500 MG, VIAL MATE ADAPTER 1 EACH in D5W 250 ML IV SCH (09:05)
[2020-05-21] MEDS: CHLORHEXIDINE GLUCONATE 0.12 % 15ML UDC (PERIDEX ORAL RINSE) MT SCH ×2 (09:05→20:23)
[2020-05-21] MEDS: D5W/0.9% SODIUM CHLORIDE 1,000 ML IV SCH ×2 (10:41→23:33)
[2020-05-21] MEDS: FLUCONAZOLE 100 MG in IV 1 EA IV SCH (10:41)
[2020-05-21 11:03] LABS: ABG BASE EXCESS -3.2 (-2.0-2.0); ABG HCO3 21.5 MEQ/L (22.0-26.0); ABG O2 SATURATION 96.9 % (95.0-99.0); ABG PARTIAL PRESSURE CO2 37.3 mmHg (35.0-45.0); ABG PARTIAL PRESSURE O2 89.3 mmHg (75.0-100.0); ABG STANDARD HCO3 21.8 MEQ/L (22.0-26.0); ABG TOTAL CO2 22.7 MEQ/L (23.0-31.0); ABG pH (ARTERIAL) 7.379 UNITS (7.350-7.450)
[2020-05-21 15:48] LABS: CALCIUM LEVEL 8.1 MG/DL (8.8-10.2); CREATININE FOR GFR 1.05 MG/DL (0.55-1.30); GLOMERULAR FILTRATION RATE 55.8 (>45); POTASSIUM SERUM 5.3 MEQ/L (3.5-5.1)
[2020-05-21] MEDS: MIDAZOLAM HCL 100 MG in D5W 80 ML IV SCH (19:11)
[2020-05-21] MEDS: PANTOPRAZOLE 40MG VIAL (C9113 PER 1) IV SCH (20:23)
[2020-05-22] VITALS (19 sets, daily range): BP systolic 128–164; BP diastolic 62–77; O2SAT 97–98
[2020-05-22] MEDS: MIDAZOLAM INJ 2MG/2ML VIAL (J2250 PER 1MG) IV PRN ×5 (01:35→22:31)
[2020-05-22] MEDS: MORPHINE 2 MG/ML 1ML VIAL (J2270) IV PRN ×2 (01:35→19:24)
[2020-05-22] MEDS: cefTRIAXone SOD 1 GM in D5W MINI-BAG PLUS 50 ML IV SCH ×2 (02:28→14:16)
[2020-05-22] MEDS: METOCLOPRAMIDE INJ 10MG/2ML VIAL (J2765 PER 1) IV SCH ×4 (03:45→22:31)
[2020-05-22 04:24] LABS: HEMATOCRIT 30.6 % (36.0-47.0); HEMOGLOBIN 9.3 g/dl (12.0-15.5); MEAN CORPUSCULAR HEMOGLOBIN 27.7 pg (27.0-33.0); MEAN CORPUSCULAR HGB CONC 30.4 g/dl (32.0-36.5); MEAN CORPUSCULAR VOLUME 91.1 fl (80.0-96.0); PLATELET COUNT, AUTOMATED 536 10^3/uL (150-450); RED BLOOD COUNT 3.36 10^6/uL (4.00-5.40); WHITE BLOOD COUNT 13.8 10^3/uL (4.0-10.0)
[2020-05-22] MEDS: SODIUM CHLORIDE 0.9% INJ 10 ML SYR IV SCH ×2 (05:00→17:05)
[2020-05-22 05:12] LABS: ALBUMIN 1.8 GM/DL (3.2-5.2); BILIRUBIN,TOTAL 0.3 MG/DL (0.2-1.0); CALCIUM LEVEL 8.3 MG/DL (8.8-10.2); CREATININE FOR GFR 0.99 MG/DL (0.55-1.30); GLOMERULAR FILTRATION RATE 59.7 (>45); PHOSPHORUS LEVEL 3.5 MG/DL (2.5-4.9); POTASSIUM SERUM 5.3 MEQ/L (3.5-5.1); TOTAL PROTEIN 5.7 GM/DL (6.4-8.2)
[2020-05-22] MEDS: HEPARIN SOD (PORCINE) 5000UNITS/ML 1ML VIAL/SYRINGE SC SCH ×3 (05:20→22:31)
[2020-05-22] MEDS: methylPREDNISolone 125MG 2ML VIAL IV SCH ×3 (05:20→22:31)
[2020-05-22] MEDS: HumaLOG INSULIN (NovoLOG) PER UNIT SC SCH ×3 (05:21→17:50)
[2020-05-22 05:30] LABS: ABG O2 SATURATION 98.4 % (95.0-99.0); ABG PARTIAL PRESSURE CO2 39.1 mmHg (35.0-45.0); ABG PARTIAL PRESSURE O2 120.9 mmHg (75.0-100.0); ABG TOTAL CO2 23.2 MEQ/L (23.0-31.0); ABG pH (ARTERIAL) 7.368 UNITS (7.350-7.450)
[2020-05-22] MEDS: IPRATROPIUM 0.5MG/ALBUTEROL 2.5MG INH SOL UD 3ML (DUONEB) NEB SCH ×4 (07:39→19:50)
--- NOTE | 2020-05-22 07:55 | REP ---
INDICATION: ETT. COMPARISON: May 21, 2020 and. May 20, 2020. TECHNIQUE: Upright AP portable radiograph. FINDINGS: Endotracheal tube is seen in good position at the level of the proximal clavicles. NG tube enters the left upper quadrant. Right-sided PICC line remains in place unchanged in position. Monitoring electrodes and oxygen delivery tubing are seen. Extensive infiltrates persist throughout the right hemithorax and left perihilar region. There does appear to be some clearing compared with the May 20, 2020 study. IMPRESSION: No new infiltrate. Extensive opacification persists unchanged from May 21, 2020. Endotracheal and nasogastric tubes in good position. <Electronically signed by Jean Chavez > 05/22/20 0759
[2020-05-22] MEDS: AZITHROMYCIN INJ 500 MG, VIAL MATE ADAPTER 1 EACH in D5W 250 ML IV SCH (09:56)
[2020-05-22] MEDS: CHLORHEXIDINE GLUCONATE 0.12 % 15ML UDC (PERIDEX ORAL RINSE) MT SCH ×2 (09:56→20:05)
[2020-05-22] MEDS: BISACODYL 10 MG SUPP PR PRN (09:57)
--- NOTE | 2020-05-22 10:17 | CCN ---
DATE: 05/21/2020 START TIME: 0920 hours STOP TIME: 1006 hours I again attended Katrin Whyte here in the intensive care unit. The patient has been examined and the chart reviewed. I have spoken at length with the nurse at the bedside and had a lengthy phone conversation again this morning with the healthcare proxy, Reuben Clay. Maximum temperature (T-max) overnight 99 degrees, blood pressure 110-130s without vasopressor support, heart rate generally is 60s to 80s and respiratory rate anywhere from 16 to the low to mid 20s without accessory muscle use. Intake and output midnight to midnight: 3897 mL in with 1105 mL out. Chest x-ray shows no significant changes compared to yesterday. Laboratories show sodium of 145 with potassium of 5.8, chloride 116, CO2 22, BUN 62, creatinine 1.06, bilirubin 0.1, albumin 1.8 today. White blood cell count further diminished at 12.3, hemoglobin 9.5, and platelet count of 501,000. Blood gas done on pressure control pressure of 24, PEEP of 8, FiO2 of 65% with spontaneous tidal volumes between 650 and 700 shows a pH of 7.376, pCO2 of 38.5, and PaO2 of 84.4. On exam, she is sedate but arousable. Moves all extremities. Pupils reactive. Sclerae clear. Trachea is midline. Chest shows symmetric expansion, reasonable air entry, no focal adventitious breath sounds are identified. Cardiac exam distant but regular. Peripheral pulses diminished but palpable. Abdomen obese, soft with active bowel sounds. No convincing organomegaly or masses. Extremities no cyanosis or clubbing. Neurologically as outlined above. The most pressing problems requiring my presence at the bedside: 1. Respiratory failure requiring mechanical ventilatory support. 2. Community-acquired pneumonia is the cause of respiratory failure requiring mechanical ventilatory support. 3. History of hypertension. 4. Protein calorie malnutrition. 5. Renal insufficiency, improving. At this point, we will make gentle changes in ventilator mode in hopes of beginning the weaning process. Her gas exchange is a little better. She remains on Rocephin, azithromycin, Diflucan, and Solu-Medrol. I spoke at length with the healthcare proxy and updated him as to what the plan is and he is in full agreement with that. He will update the rest of the family. She is tolerating tube feeds. Her residuals are low but she has had no bowel movement yet. She does have cathartics ordered for both above and below. Ulcer and deep venous thrombosis (DVT) prophylaxis remain in place. Her prognosis remains guarded but will proceed as outlined above. I left the bedside at 1006 hours. 46 minutes of critical care time delivered at the bedside not including procedures. ARELIS
[2020-05-22 10:19] LABS: ABG BASE EXCESS -4.1 (-2.0-2.0); ABG O2 SATURATION 95.4 % (95.0-99.0); ABG PARTIAL PRESSURE CO2 38.8 mmHg (35.0-45.0); ABG PARTIAL PRESSURE O2 78.7 mmHg (75.0-100.0); ABG TOTAL CO2 22.2 MEQ/L (23.0-31.0); ABG pH (ARTERIAL) 7.352 UNITS (7.350-7.450)
--- NOTE | 2020-05-22 10:20 | CCN ---
DATE: 05/20/2020 START TIME: 913 STOP TIME: 951 SUBJECTIVE: I again attended Katrin Whyte here in the Intensive Care Unit. The patient has been examined, chart reviewed. I spoke at length with her nurse. T-max overnight 98.8, blood pressure generally 110 to 120s. She has not required vasopressors. Heart rate generally between 60 and 80 with a sinus mechanism. Respiratory rate 16 to the low 20s without accessory muscle use. Is and Os midnight to midnight 3,077 mL in with 980 mL out. She is making reasonable urine. She is tolerating tube feeds at 60 mL an hour. Most recent laboratories show a white blood cell count of 15.4, hemoglobin 9.4, platelet count 480,000, 90.8 segs, no bands. Sodium 144, K 4.9, chloride 115, CO2 22, BUN 53, creatinine 1.04, glucose 241. Albumin remains depressed at 1.6. Liver functions show an alkaline phosphatase 289, LVH 279, ALT and AST 23 and 41 respectively. Arterial blood gas done on a pressure control mode rate of 16, PEEP of 8, pressure support of 24 and FiO2 of 65%, a pH of 7.411, pCO2 34.1, PaO2 155.5, saturation 99.2% this morning. Chest x-ray this morning shows seemingly less infiltrate on the left. Right- sided findings about the same. PHYSICAL EXAMINATION: She is quite comfortable. She is synchronous with the ventilator. She is sedate but arousable. Pupils react. Sclerae clear. Trachea is in the midline. Chest shows symmetric expansion, no rubs or wheezes. No significant crackles. No other focal adventitious breath sounds are identified. Cardiac exam is distant but regular. Peripheral pulses are diminished but palpable, no obvious edema. Abdomen mildly obese, soft with active bowel sounds, no convincing organomegaly or masses. Extremities show no obvious cyanosis or clubbing. Neurologically she is sedate but does move all extremities. Most recent bronchoscopy culture results remain negative. Blood cultures repeated on the remain negative as well. MOST PRESSING PROBLEMS REQUIRING MY PRESENCE AT THE BEDSIDE: * Hypoxemic respiratory failure, ventilator requiring. * Community-acquired pneumonia. * Previous history of hypertension. * Renal insufficiency. ASSESSMENT: At this point we will continue our current level of care. Steroids were added several days ago and Azithromycin and Diflucan were added to her Rocephin yesterday. Her fever curve is improved. White blood cell count I believe is on the basis of her steroids. We have seen some improvement in her gas exchange and I have guarded optimism that we may finally be getting to see some improvement but time will tell in that regard. She is tolerating tube feeds. He albumin remains markedly depressed and is a separate prognostic indicator. The fact that it remains less than 2 is always worrisome. Cathartics were added yesterday. She did respond to increased IV fluids several days ago. Creatinine remains stable and again we are hopeful in that regard. We have made some mild ventilator changes. My hope is that in the next 24 to 48 hours we can begin attempts at active weaning by placing her on a ventilator mode that allows her to do some work of breathing. I will do that if her gas exchange remains requiring FiO2s of 60% or less. She remains on ulcer and DVT prophylaxis. I updated her health care proxy Reuben Zaragoza, , on a daily basis. We will proceed as outlined above. Optimism is guarded at this point and we will proceed as outlined above. I did speak with Reuben yesterday regarding my concerns that she may require a tracheostomy if we are not able to achieve extubation in the next five days or so. It sounds as if they are all in agreement with continued aggressive and maximal care and I believe that is quite appropriate given her premorbid state. We will proceed as outlined above. I left the bedside at 0952 hours. Thirty eight minutes of critical care time were delivered at the bedside not including procedures. ARELIS
[2020-05-22] MEDS: FLUCONAZOLE 100 MG in IV 1 EA IV SCH (11:46)
[2020-05-22] MEDS: PANTOPRAZOLE 40MG VIAL (C9113 PER 1) IV SCH (20:05)
[2020-05-23] VITALS (11 sets, daily range): BP systolic 133–176; BP diastolic 61–77
[2020-05-23] MEDS: HumaLOG INSULIN (NovoLOG) PER UNIT SC SCH ×4 (01:11→17:14)
[2020-05-23] MEDS: MIDAZOLAM INJ 2MG/2ML VIAL (J2250 PER 1MG) IV PRN ×3 (03:42→15:49)
[2020-05-23] MEDS: MORPHINE 2 MG/ML 1ML VIAL (J2270) IV PRN ×2 (03:43→21:54)
[2020-05-23] MEDS: cefTRIAXone SOD 1 GM in D5W MINI-BAG PLUS 50 ML IV SCH ×2 (03:43→14:03)
[2020-05-23] MEDS: METOCLOPRAMIDE INJ 10MG/2ML VIAL (J2765 PER 1) IV SCH ×4 (03:43→21:54)
[2020-05-23 05:15] LABS: HEMATOCRIT 32.1 % (36.0-47.0); HEMOGLOBIN 10.1 g/dl (12.0-15.5); MEAN CORPUSCULAR HEMOGLOBIN 28.4 pg (27.0-33.0); MEAN CORPUSCULAR HGB CONC 31.5 g/dl (32.0-36.5); MEAN CORPUSCULAR VOLUME 90.2 fl (80.0-96.0); PLATELET COUNT, AUTOMATED 532 10^3/uL (150-450); RED BLOOD COUNT 3.56 10^6/uL (4.00-5.40); WHITE BLOOD COUNT 15.7 10^3/uL (4.0-10.0)
[2020-05-23 05:42] LABS: ABG BASE EXCESS -3.7 (-2.0-2.0); ABG HCO3 21.3 MEQ/L (22.0-26.0); ABG O2 SATURATION 96.9 % (95.0-99.0); ABG PARTIAL PRESSURE CO2 38.5 mmHg (35.0-45.0); ABG PARTIAL PRESSURE O2 95.3 mmHg (75.0-100.0); ABG STANDARD HCO3 21.4 MEQ/L (22.0-26.0); ABG TOTAL CO2 22.5 MEQ/L (23.0-31.0); ABG pH (ARTERIAL) 7.361 UNITS (7.350-7.450)
[2020-05-23 05:48] LABS: ALBUMIN 1.8 GM/DL (3.2-5.2); ALT/SGPT 42 U/L (12-78); BILIRUBIN,TOTAL 0.2 MG/DL (0.2-1.0); BLOOD UREA NITROGEN 65 MG/DL (7-18); CALCIUM LEVEL 8.2 MG/DL (8.8-10.2); CARBON DIOXIDE LEVEL 24 MEQ/L (21-32); CHLORIDE LEVEL 116 MEQ/L (98-107); CHOLESTEROL LEVEL 149 MG/DL (< 200); CPK CREATINE PHOSPHOKINASE 48 U/L (26-192); CREATININE FOR GFR 0.92 MG/DL (0.55-1.30); GLOMERULAR FILTRATION RATE > 60.0 (>45); GLUCOSE, FASTING 216 MG/DL (70-100); LDH LACTATE DEHYDROGENASE 317 U/L (84-246); PHOSPHORUS LEVEL 3.8 MG/DL (2.5-4.9); POTASSIUM SERUM 4.5 MEQ/L (3.5-5.1); SODIUM LEVEL 145 MEQ/L (136-145); TRIGLYCERIDES LEVEL 98 MG/DL (<150)
[2020-05-23] MEDS: methylPREDNISolone 125MG 2ML VIAL IV SCH ×3 (06:13→21:54)
[2020-05-23] MEDS: HEPARIN SOD (PORCINE) 5000UNITS/ML 1ML VIAL/SYRINGE SC SCH ×3 (06:14→21:54)
[2020-05-23] MEDS: SODIUM CHLORIDE 0.9% INJ 10 ML SYR IV SCH ×2 (06:14→16:03)
[2020-05-23] MEDS: IPRATROPIUM 0.5MG/ALBUTEROL 2.5MG INH SOL UD 3ML (DUONEB) NEB SCH ×4 (07:11→19:17)
--- NOTE | 2020-05-23 07:59 | REP ---
INDICATION: ETT. COMPARISON: Comparison radiograph May 22, 2020 and. May 21, 2020. TECHNIQUE: Semi-erect AP portable exam. FINDINGS: Endotracheal tube remains in good position. NG tube enters the left upper quadrant as before. Monitoring electrodes and right sided PICC line are again seen. Extensive coarse interstitial consolidation persists throughout the right lung and in the left perihilar and lower lobe regions. No new infiltrate. IMPRESSION: No change from the previous day's study. <Electronically signed by Jean Chavez > 05/23/20 0759
--- NOTE | 2020-05-23 08:41 | CCN ---
DATE: 05/22/2020 START TIME: 819 STOP TIME: 08 SUBJECTIVE: I again attending aKtrin Lau here in the Intensive Care Unit. The patient has been examined, chart reviewed. I spoke at length with the nurse at the bedside. Maximum temperature (T-max) overnight 99.0, blood pressure 140 to 160s. Heart rates are only 60s to 70s with a sinus mechanism. Respiratory rate 16 to the low 20s without accessory muscle use. Pulse oximetry 96-100% today. Input and output midnight to midnight 3,717 mL in with 1,267 mL out. Most recent laboratories showed a sodium of 146, K 5.3, chloride 117, CO2 23, BUN 64, creatinine 0.99, glucose 223. Alkaline phosphatase 223 which is essentially unchanged. Albumin 1.8. White blood cell count 13.8, hemoglobin 9.3, platelet count 536,000. No differential today. Arterial blood gas obtained on a PRVC mode, rate of 16, tidal volume of 600, PEEP of 8 and FiO2 of 65% has a pH of 7.368, pCO2 of 39, pO2 of 120.9. Chest x-ray shows lines and tubes in good position. No acute findings. Bilateral findings of fluffy infiltrates right greater than the left essentially unchanged. PHYSICAL EXAMINATION: With Propofol at a low dose, she is easily arousable and interacts appropriately. Pupils react. Sclerae clear. Trachea is in the midline. Chest shows symmetric expansion, no focal adventitious breath sounds. There were rhonchi occasionally. Cardiac exam is distant but regular. Peripheral pulses are diminished but palpable, trace edema but unchanged. Abdomen is obese, soft with active bowel sounds, no convincing organomegaly or masses. Extremities without obvious cyanosis or clubbing. Neurologically she is awake, alert when sedation diminished. Psychiatric exam shows her mood to be appropriate. MOST PRESSING PROBLEMS REQUIRING MY PRESENCE AT THE BEDSIDE: 1. Hypoxemic respiratory failure requiring mechanical ventilatory support. 2. Community-acquired pneumonia as the basis of the above. 3. History of hypertension. 4. Borderline hyperglycemia. 5. Borderline hyperkalemia. PLAN: In view of the above, we will continue her current antimicrobials. I will slowly begin weaning her Solu-Medrol. I will change her to a more standard mode of ventilation today in hopes of achieving some sort of weaning. We will have physical therapy begin working with her as well. She is tolerating tube feeds but has not had a bowel movement yet and we will assist with that with cathartics from either above or above and below. We will make some changes in her IV fluids given her electrolytes. I will change her to more free water down her tube. She remains on ulcer and DVT prophylaxis. I speak daily with her health care proxy and keep him updated as he is the spokesperson for the family. We will continue to push as outlined above and my hope is that we will be able to avoid tracheostomy. I did present this to the health care proxy as a possibility. However, he said the family at this point is in agreement with whatever it takes to get her home and back to a functional status. For now we will continue as outlined above. I left the bedside at 0858 hours. A total of 38 minutes of critical care time at the bedside not including procedures. ARELIS
[2020-05-23] MEDS: CHLORHEXIDINE GLUCONATE 0.12 % 15ML UDC (PERIDEX ORAL RINSE) MT SCH ×2 (09:25→21:53)
[2020-05-23] MEDS: AZITHROMYCIN INJ 500 MG, VIAL MATE ADAPTER 1 EACH in D5W 250 ML IV SCH (10:08)
[2020-05-23] MEDS: FLUCONAZOLE 100 MG in IV 1 EA IV SCH (11:14)
--- NOTE | 2020-05-23 12:30 | CCN ---
DATE: 05/23/2020 START TIME: 839 STOP TIME: 917 SUBJECTIVE: I again attended Katrin Whyte here in the intensive care unit (ICU). Patient has been examined and chart reviewed. I spoke at length with the nurse at the bedside. T-max overnight 99.2, blood pressure 130s to 170s systolic, heart rate 60s to 70s, respiratory rate 16 to 20 without accessory muscle use. She has been able to be weaned to 40% FiO2. Ins and outs [id number] 2868 mL in with 1360 mL out. LABORATORY DATA: Most recent laboratories show a white blood cell count of 15.7, hemoglobin 10.1, platelet count 532,000, and no differential today. Sodium 145, K 4.5, chloride 116, CO2 of 24, BUN 65, creatinine 0.92. Alkaline phosphatase/LDH 209 and 317 respectively essentially unchanged. Albumin 1.8. Blood gas done on an SIMV of 12, tidal volume 550, PEEP 8, FiO2 of 40%. PH of 7.361, pCO2 of 38.5, and a pO2 of 95.3. IMAGING: Chest x-ray shows no significant change in lines and tubes. Infiltrates right greater than left may be a little less dense today. MEDICATIONS: List is reviewed. She remains on Rocephin, azithromycin, and Diflucan. Solu-Medrol is in place. She remains on ulcer and DVT prophylaxis, as well as p.r.n. cathartics. She is tolerating tube feeds. OBJECTIVE: On exam, she is sedate but arousable. She is getting minimal sedation. She moves all extremities. Pupil react. Sclerae clear. Trachea is in the midline. Chest shows symmetric expansion with no focal adventitious breath sounds. No rhonchus, wheeze, or rubs. Cardiac exam is distant, but regular. Peripheral pulses are palpable. Trace edema. Abdomen obese and soft with active bowel sounds. No convincing organomegaly or masses. Extremities show no obvious cyanosis or clubbing. Neurologically she moves all extremities. She is sedate, but easily arousable. ASSESSMENT: The most pressing problems requiring my presence at the bedside 1. Community-acquired pneumonia with respiratory failure. 2. Respiratory failure requiring mechanical ventilatory support. 3. Hypoxemic respiratory failure on the basis of the above. 4. History of hypertension. 5. Overall global deconditioning. 6. Hyperglycemia probably secondary to steroids. PLAN AND RECOMMENDATIONS: At this point, we will continue to push weaning from the ventilator. She has tolerated a significant decrease in her sedation level. I will cut her steroids in half today. We will continue her current antimicrobials. No new culture results are available. Urine output is reasonable. Electrolytes are acceptable. She is getting insulin coverage for her elevated sugars, and I hope this improves somewhat as well with a decrease in her steroids. My hope is that if we continue on her current course, we may be able to achieve endotracheal extubation in the next 24-48 hours, but we will see how that goes. Physical therapy and occupational therapy evaluated her yesterday. At this point, we will proceed as outlined above. I have updated her health care proxy daily. We will continue the course as outlined above. Her prognosis does remain guarded; however, in view of her age. I left the bedside at 0918 hours. 38 minutes spent in critical care time at the bedside not including procedures. ARELIS
[2020-05-23] MEDS: PANTOPRAZOLE 40MG VIAL (C9113 PER 1) IV SCH (21:54)
[2020-05-23] MEDS: SODIUM CHLORIDE 0.9% INJ 10 ML SYR IV PRN (21:55)
[2020-05-24] VITALS (15 sets, daily range): BP systolic 128–176; BP diastolic 58–99; O2SAT 90–94
[2020-05-24] MEDS: MORPHINE 2 MG/ML 1ML VIAL (J2270) IV PRN ×2 (00:35→03:48)
[2020-05-24] MEDS: HumaLOG INSULIN (NovoLOG) PER UNIT SC SCH ×4 (00:35→17:40)
[2020-05-24] MEDS: SODIUM CHLORIDE 0.9% INJ 10 ML SYR IV PRN (00:36)
[2020-05-24] MEDS: cefTRIAXone SOD 1 GM in D5W MINI-BAG PLUS 50 ML IV SCH ×2 (03:47→14:01)
[2020-05-24] MEDS: METOCLOPRAMIDE INJ 10MG/2ML VIAL (J2765 PER 1) IV SCH (03:47)
[2020-05-24] MEDS: MIDAZOLAM INJ 2MG/2ML VIAL (J2250 PER 1MG) IV PRN (03:48)
[2020-05-24 05:29] LABS: HEMATOCRIT 32.5 % (36.0-47.0); HEMOGLOBIN 10.2 g/dl (12.0-15.5); MEAN CORPUSCULAR HEMOGLOBIN 28.1 pg (27.0-33.0); MEAN CORPUSCULAR HGB CONC 31.4 g/dl (32.0-36.5); MEAN CORPUSCULAR VOLUME 89.5 fl (80.0-96.0); PLATELET COUNT, AUTOMATED 515 10^3/uL (150-450); RED BLOOD COUNT 3.63 10^6/uL (4.00-5.40); WHITE BLOOD COUNT 17.2 10^3/uL (4.0-10.0)
[2020-05-24 05:39] LABS: ABG BASE EXCESS -1.6 (-2.0-2.0); ABG HCO3 23.1 MEQ/L (22.0-26.0); ABG O2 SATURATION 93.2 % (95.0-99.0); ABG PARTIAL PRESSURE CO2 38.9 mmHg (35.0-45.0); ABG PARTIAL PRESSURE O2 68.1 mmHg (75.0-100.0); ABG STANDARD HCO3 23.1 MEQ/L (22.0-26.0); ABG TOTAL CO2 24.3 MEQ/L (23.0-31.0); ABG pH (ARTERIAL) 7.392 UNITS (7.350-7.450)
[2020-05-24 06:17] LABS: ALBUMIN 1.8 GM/DL (3.2-5.2); ALT/SGPT 35 U/L (12-78); BILIRUBIN,TOTAL 0.4 MG/DL (0.2-1.0); BLOOD UREA NITROGEN 59 MG/DL (7-18); CALCIUM LEVEL 8.4 MG/DL (8.8-10.2); CARBON DIOXIDE LEVEL 27 MEQ/L (21-32); CHLORIDE LEVEL 112 MEQ/L (98-107); CHOLESTEROL LEVEL 161 MG/DL (< 200); CPK CREATINE PHOSPHOKINASE 67 U/L (26-192); CREATININE FOR GFR 0.77 MG/DL (0.55-1.30); GLOMERULAR FILTRATION RATE > 60.0 (>45); GLUCOSE, FASTING 224 MG/DL (70-100); LDH LACTATE DEHYDROGENASE 307 U/L (84-246); PHOSPHORUS LEVEL 3.9 MG/DL (2.5-4.9); POTASSIUM SERUM 4.4 MEQ/L (3.5-5.1); SODIUM LEVEL 143 MEQ/L (136-145); TOTAL PROTEIN 5.6 GM/DL (6.4-8.2); TRIGLYCERIDES LEVEL 109 MG/DL (<150)
[2020-05-24] MEDS: HEPARIN SOD (PORCINE) 5000UNITS/ML 1ML VIAL/SYRINGE SC SCH ×3 (06:31→21:29)
[2020-05-24] MEDS: SODIUM CHLORIDE 0.9% INJ 10 ML SYR IV SCH ×2 (06:32→17:40)
[2020-05-24] MEDS: methylPREDNISolone 125MG 2ML VIAL IV SCH ×2 (06:32→13:56)
[2020-05-24] MEDS: IPRATROPIUM 0.5MG/ALBUTEROL 2.5MG INH SOL UD 3ML (DUONEB) NEB SCH ×4 (07:23→19:02)
--- NOTE | 2020-05-24 08:22 | REP ---
INDICATION: Intubated. COMPARISON: May 23, 2020.. TECHNIQUE: Portable AP view. FINDINGS: Monitoring electrodes and oxygen delivery tubing are seen. Endotracheal tube remains in good position at the level of the transverse aorta. NG tube enters the left upper quadrant. Right-sided PICC line remains in place unchanged. Extensive infiltrates persist in the lung yip right greater than left. No new infiltrate is seen. When comparison is made with more remote prior studies such as May 15, 2020, there is generalized clearing noted on the right. Considerable consolidation persists however. IMPRESSION: Extensive bilateral infiltrates persist. <Electronically signed by Jean Chavez > 05/24/20 0855
[2020-05-24] MEDS: AZITHROMYCIN INJ 500 MG, VIAL MATE ADAPTER 1 EACH in D5W 250 ML IV SCH (09:29)
[2020-05-24] MEDS: FLUCONAZOLE 100 MG in IV 1 EA IV SCH (11:08)
--- NOTE | 2020-05-24 12:10 | CCN ---
DATE: 05/24/2020 START TIME: 824 STOP TIME: 903 SUBJECTIVE: I again attended Katrin Lau here in the Intensive Care Unit. Patient has been examined and chart reviewed, and I spoke at length with the nurse at the bedside. She has received no sedation this morning. She is awake, alert, appropriate, and quite anxious to be extubated. She did have two episodes of some mucus plugging through the night. She remains on 40% FiO2. T-max overnight 98.1. Blood pressure 120-160 systolic. Heart rate 60 to 70s with a sinus mechanism. Respiratory rate 18 to 20s without accessory muscle use. Ins and outs midnight to midnight 2775 cc in with 1540 cc out. LABORATORY DATA: Most recent laboratories showed a white blood cell count of 17.2, hemoglobin 10.2, platelet count 515,000. Sodium 143, potassium 4.4, chloride 112, CO2 27, BUN 59, creatinine 0.77, glucose 224. Liver function is essentially unchanged. Albumin remains 1.8. Blood gas done this morning on an SIMV of 6, tidal volume of 550, PEEP of 6, and FiO2 of 40%. Has a pH of 7.392, pCO2 of 38.9, and pO2 of 61, saturation 93.2%. Chest x-ray was reviewed and shows no significant changes. Less optimal breath today. Maybe some increased markings, but due to differences in technique, difficult to adequately access. PHYSICAL EXAMINATION: On exam, she is awake, alert, appropriate, moves all extremities. Interacts appropriately. Pupils reactive to light and clear. Trachea is in the midline. Chest is quite clear to both auscultation and percussion, expansion symmetric, and no significant focal adventitious breath sounds are identified. Cardiac exam is regular rhythm with no gallop. Peripheral pulses palpable with no edema. Abdomen: Obese, soft with active bowel sounds. No convincing organomegaly or masses. Extremities show no cyanosis or clubbing. Neurologically: She is awake, alert, and appropriate. Psychiatrically: She has normal mood and affect. MOST PRESSING PROBLEMS REQUIRING MY PRESENCE AT THE BEDSIDE: 1. Respiratory failure requiring mechanical ventilatory support. 2. Community-acquired pneumonia resulting in respiratory failure. 3. Hyperglycemia, probably medication induced. 4. History of hypertension. PLAN: At this point, we will proceed with endotracheal extubation. My hope is that she will do well. There is a possibility she may require a little higher FiO2 in view of the PEEP that she required, but in view of her intermittent difficulties with mucus plugging, I believe she will do better with her own cough mechanism. We will augment this for her. She is yet to have a bowel movement. She complains of no abdominal pain. My hope is that with being able to get her up out of bed that she will do better in that regard as well. She was extubated without difficulties. No stridor. Oxygen saturation 89% on 40% FiO2 was increased to 60% for now to keep saturations 93-94%. She complains of thirst, and in the next little bit we will at least try her with some ice chips. I will update her family. At this point, we will continue her current antimicrobials. She remains on ulcer and DVT prophylaxis. We cut her steroids in half yesterday. We will increase her mobility as she tolerates as well as her diet as tolerated. We will proceed as outlined above. Although I am encouraged by her progress, certainly we will continue to keep a close eye on her. Further recommendations will be made as it becomes available. I left the bedside at 0904 hours. Thirty- nine minutes of critical care time at the bedside not including procedures. ARELIS
[2020-05-24] MEDS ORDERED: METOPROLOL TART 25 MG TABLET As Ordered ONE (16:50)
[2020-05-24] MEDS ORDERED: METOPROLOL TART 50 MG TAB As Ordered ONE (16:53)
[2020-05-24] MEDS: METOPROLOL TART 50 MG TAB PO SCH (16:57)
[2020-05-24] MEDS ORDERED: DIGOXIN INJ 0.5 MG/2 ML AMP (J1160) IV ONE (18:30)
[2020-05-24] MEDS ORDERED: DIGOXIN INJ 0.5 MG/2 ML AMP (J1160) As Ordered ONE (18:30)
[2020-05-24] MEDS ORDERED: METOPROLOL TART 50 MG TAB PO SCH (21:00)
[2020-05-24] MEDS: methylPREDNISolone 40MG 1ML VIAL IV SCH (21:29)
[2020-05-24] MEDS: PANTOPRAZOLE 40MG VIAL (C9113 PER 1) IV SCH (21:29)
[2020-05-25] VITALS (9 sets, daily range): BP systolic 128–162; BP diastolic 67–111
[2020-05-25] MEDS ORDERED: DIGOXIN INJ 0.5 MG/2 ML AMP (J1160) IV STA (00:19)
[2020-05-25] MEDS: HumaLOG INSULIN (NovoLOG) PER UNIT SC SCH ×6 (00:42→21:00)
[2020-05-25] MEDS: cefTRIAXone SOD 1 GM in D5W MINI-BAG PLUS 50 ML IV SCH ×2 (02:54→16:28)
[2020-05-25] MEDS: HEPARIN SOD (PORCINE) 5000UNITS/ML 1ML VIAL/SYRINGE SC SCH (05:35)
[2020-05-25] MEDS: methylPREDNISolone 40MG 1ML VIAL IV SCH ×2 (05:36→17:18)
[2020-05-25] MEDS: SODIUM CHLORIDE 0.9% INJ 10 ML SYR IV SCH ×2 (05:36→17:18)
[2020-05-25 06:00] LABS: HEMOGLOBIN 11.6 g/dl (12.0-15.5); MEAN CORPUSCULAR HEMOGLOBIN 27.6 pg (27.0-33.0); MEAN CORPUSCULAR HGB CONC 31.4 g/dl (32.0-36.5); MEAN CORPUSCULAR VOLUME 87.9 fl (80.0-96.0); PLATELET COUNT, AUTOMATED 572 10^3/uL (150-450); RED BLOOD COUNT 4.21 10^6/uL (4.00-5.40); WHITE BLOOD COUNT 19.4 10^3/uL (4.0-10.0)
[2020-05-25 06:34] LABS: ALBUMIN 1.8 GM/DL (3.2-5.2); ALT/SGPT 32 U/L (12-78); BILIRUBIN,TOTAL 0.4 MG/DL (0.2-1.0); BLOOD UREA NITROGEN 46 MG/DL (7-18); CALCIUM LEVEL 8.2 MG/DL (8.8-10.2); CARBON DIOXIDE LEVEL 29 MEQ/L (21-32); CHLORIDE LEVEL 108 MEQ/L (98-107); CHOLESTEROL LEVEL 184 MG/DL (< 200); CPK CREATINE PHOSPHOKINASE 83 U/L (26-192); CREATININE FOR GFR 0.66 MG/DL (0.55-1.30); GLOMERULAR FILTRATION RATE > 60.0 (>45); GLUCOSE, FASTING 163 MG/DL (70-100); LDH LACTATE DEHYDROGENASE 394 U/L (84-246); PHOSPHORUS LEVEL 4.4 MG/DL (2.5-4.9); POTASSIUM SERUM 4.8 MEQ/L (3.5-5.1); SODIUM LEVEL 142 MEQ/L (136-145); TOTAL PROTEIN 5.4 GM/DL (6.4-8.2); TRIGLYCERIDES LEVEL 158 MG/DL (<150)
[2020-05-25] MEDS: IPRATROPIUM 0.5MG/ALBUTEROL 2.5MG INH SOL UD 3ML (DUONEB) NEB SCH ×4 (07:45→19:36)
[2020-05-25] MEDS: AZITHROMYCIN INJ 500 MG, VIAL MATE ADAPTER 1 EACH in D5W 250 ML IV SCH (08:08)
[2020-05-25] MEDS: METOPROLOL TART 50 MG TAB PO SCH ×2 (08:10→21:15)
[2020-05-25 08:32] LABS: ABG BASE EXCESS 0.9 (-2.0-2.0); ABG HCO3 24.6 MEQ/L (22.0-26.0); ABG O2 SATURATION 92.6 % (95.0-99.0); ABG PARTIAL PRESSURE CO2 36.6 mmHg (35.0-45.0); ABG PARTIAL PRESSURE O2 62.2 mmHg (75.0-100.0); ABG STANDARD HCO3 25.1 MEQ/L (22.0-26.0); ABG TOTAL CO2 25.8 MEQ/L (23.0-31.0); ABG pH (ARTERIAL) 7.446 UNITS (7.350-7.450)
--- NOTE | 2020-05-25 08:50 | REP ---
INDICATION: Hypoxemia. COMPARISON: 05/24/2020 and 05/23/2020. TECHNIQUE: AP semi-erect portable chest. FINDINGS: Patient has been extubated. Nasogastric tube is also removed. There is a right sided PICC line terminating in the SVC. Extensive the infiltrates are again seen right greater than left with subtle improvement in the left upper lobe, cardiac silhouette, mediastinum and aorta unchanged. Questionably elsewhere. Underlying COPD and fibrosis. IMPRESSION: ETT and nasogastric tubes removed. Right upper extremity PICC line again seen. Extensive bilateral infiltrates superimposed on fibrosis and COPD right greater than left with some improvement suggested in the left mid and upper lung zone. <Electronically signed by Ricki Schuler > 05/25/20 0816
[2020-05-25] MEDS: PANTOPRAZOLE 40MG TAB (PROTONIX) PO SCH (09:57)
[2020-05-25] MEDS: ENOXAPARIN 100MG/1ML SYRINGE (J1650 PER 10MG) SC SCH ×2 (09:57→21:14)
[2020-05-25] MEDS ORDERED: FLECAINIDE 50MG TABLET PO ONE ×2 (11:00→13:00)
--- NOTE | 2020-05-25 11:09 | CR ---
DATE OF CONSULTATION: 05/25/2020 REFERRING PHYSICIAN: Dr. Santos. REASON FOR CONSULTATION: Atrial fibrillation with rapid ventricular response. HISTORY OF PRESENT ILLNESS: Mrs. Whyte is a 65-year-old white female who was admitted to [facility] as a transfer from [facility] for severe community-acquired pneumonia that required intubation that was rather prolonged. She was eventually successfully extubated yesterday and from a respiratory point of view has been doing relatively well. Unfortunately yesterday afternoon, she went into atrial fibrillation with rapid ventricular response. She at her baseline prior to the admission was on 50 mg of metoprolol twice a day, but it was not sufficient to control her rate and consequently, she got two doses of digoxin 0.25 mg each throughout the night. This morning, her heart has fluctuated between 90 and 130 BPM. She feels relatively comfortable, overall much improved compared to the condition over the last several days. She denies any significant dyspnea as long as she does not move. She denies any chest pain and she has no awareness of the palpitations. The patient tells me that at her baseline, she is feeling well. In spite of her morbid obesity, she says that she does not have any trouble with ambulation and as well she does not get chest pain or shortness of breath. She denies any prior cardiac history other than hypertension for which she has been chronically on metoprolol. PAST MEDICAL HISTORY: 1. Hypertension that has been longstanding and has been on metoprolol apparently for years. 2. Macular degeneration with recent evaluation, apparently in [place], with recommendations to follow locally in this regard. PAST SURGICAL HISTORY: Negative. SOCIAL HISTORY: The patient is . She is the mother of 13 children. FAMILY HISTORY: Not relevant in this setting. REVIEW OF SYSTEMS: As per HPI. Otherwise, negative. Specifically, she denies any history of bleeding problem with the exception of epistaxis that occurred more than 10 years ago and bleeding complications after one of her deliveries again decades ago. There is no history of syncope and no prior history of arrhythmic problems. PHYSICAL EXAMINATION: GENERAL APPEARANCE: Mrs. Lau is a 65-year-old white female. She appears comfortable. She is alert, oriented and appropriate, in no distress. VITAL SIGNS: Last set of vital signs revealed blood pressure 148/82, heart rate fluctuating between 90 and 130, saturation was 89% on 10 L of high-flow cannula. NECK: Her jugular venous pressure (JVP) is not high. I do not appreciate carotid bruit. LUNGS: Reveal bilateral inspiratory crackle, more prominent on the right than the left. No wheezing. HEART: Reveals irregular rhythm. I do not appreciate any gallop, rub, or murmur. Somewhat limited exam considering her body habitus. ABDOMEN: Difficult to exam due to her size, but no apparent guarding or masses are appreciated. EXTREMITIES: There is no apparent peripheral edema and her peripheral pulses are easily palpable. NEUROLOGIC: She is intact. Moves all four extremities. Her speech is intact. She does complain about blurriness of her vision, which has been chronic. LABORATORY DATA: As of this morning, her CBC revealed WBC count 19,000 with hemoglobin 11.6, hematocrit 37, platelet count 575,000. Basic metabolic panel with sodium 142, potassium 4.8, BUN 46, creatinine 0.7, and glucose 163. She has persistently elevated liver function tests, especially alkaline phosphatase, but it has been coming down with albumin as low as 1.8. IMAGING: Chest x-ray as of yesterday revealed multiple interstitial infiltrates that have been slowly improving, but remain quite extensive. I did not find any ECG on file. ASSESSMENT AND PLAN: Mrs. Lau is a 65-year-old female with a history of hypertension, but no other cardiac problems, who has been critically ill for several days and was just extubated for community-acquired pneumonia with secondary respiratory failure as of yesterday. From a respiratory point of view, she is improving, but went into atrial fibrillation with rapid ventricular response (RVR). There are concerns about long-term management because it is likely that her outpatient care will be sporadic at best. It is my impression that the atrial fibrillation is likely secondary to the stress of her current illness and is pretty common in this setting. I do not appreciate anything to suggest that she has left ventricular systolic dysfunction. My plan will be to attempt chemical cardioversion; but first of all, I want to accomplish good rate control. I will see what her heart rate is after the morning dose of metoprolol. If it is a satisfactory rate control, then I will try to give her oral flecainide in an attempt to accomplish chemical cardioversion. Should that not be successful, then we will load her with amiodarone in order to speed up conversion to sinus rhythm. She will need at least short term anticoagulation. She has been on a prophylactic dose of heparin, but I am going to change her to Lovenox. Even though she is very heavy, I am going to use only 100 mg twice a day. Hopefully, we will accomplish resumption of sinus rhythm within the next day or so that way minimizing the risk of thromboembolic complications. MTDNéstor
--- NOTE | 2020-05-25 12:26 | IPN ---
DATE: 05/25/2020 SUBJECTIVE: I again attended Katrin Whyte here in the intensive care unit. She was extubated yesterday. She remains extubated and on nasal cannula. She is awake, alert, and appropriate. She went into atrial fibrillation yesterday, and we are having issues with rate control. OBJECTIVE: VITAL SIGNS: T-max overnight 98.2, blood pressure 140 to 160s. She is back on her metoprolol. Heart rate anywhere from 90 to 130s clearly atrial fibrillation. Respiratory rate generally 18 to the low 20s without accessory muscle use. Saturations 89% to 96% on high-flow cannula. Ins and outs [id number] 2665 mL in with 2630 mL out. GENERAL APPEARANCE: She is awake, alert, and appropriate. She converses comfortably. She denies any real issues. HEENT: Otherwise normocephalic, atraumatic. Pupils are reactive. Neck is supple without any convincing thyromegaly or adenopathy. No obvious jugular venous distention (JVD). Mucous membranes nose and mouth are moist. Airway is class 2 to 3. Trachea is in the midline. CHEST: Shows diminished, but symmetric expansion. I do believe there is some egophony at the right base. No rubs, wheezes, or significant crackles. No other adventitious breath sounds are identified. CARDIAC: Irregularly irregular. Peripheral pulses palpable. Trace edema. ABDOMEN: Obese and soft with active bowel sounds. No convincing organomegaly or masses. EXTREMITIES: Without obvious cyanosis or clubbing. NEUROLOGIC: She is awake, alert, appropriate, and mildly weak, but moves all extremities symmetrically. PSYCHIATRIC: Normal mood and affect. LABORATORY DATA: Most recent laboratories show a white blood cell count of 19.4, hemoglobin 11.6, platelet count 572,000. Sodium 142, K 4.8, chloride 108, CO2 of 29, BUN 46, creatinine 0.66, glucose 163. LFTs essentially unchanged. Albumin remains 1.8. Blood gas done this morning on 10 L cannula shows a pH of 7.446, pCO2 of 36.6, and a PaO2 of 62.2, saturation 92.6% IMAGING: Chest x-ray does show an increase consistent with her loss of positive end-expiratory pressure (PEEP). She was seen by cardiology this morning. ASSESSMENT: 1. Hypoxemic respiratory failure multifactorial. 2. Community-acquired pneumonia. 3. Atrial fibrillation. 4. Hypertension. 5. Protein-calorie malnutrition. RECOMMENDATIONS: At this point, she has received metoprolol, digoxin, and has now been seen by cardiology. I had a long discussion with Dr. Hartley regarding options for her. She has been changed from subcutaneous heparin to Lovenox in view of her persistent atrial fibrillation. She remains on ulcer prophylaxis and this will be changed to a p.o. route. Given the fact that she is much more comfortable and has stayed off of both CPAP, which she was on briefly last night and was able to maintain her oxygenation status on nasal cannula, I will allow her to advance her diet. Physical therapy and occupational therapy are working with her in hopes of improving her conditioning, and she does spend more time out of bed. She did finally have a bowel movement yesterday. She states constipation is not a general problem for her and hopefully, we will continue to keep things moving for her. She remains on intravenous (IV) antimicrobials and probably in the next day or so, we can switch to an oral route. We will continue to wean her steroids. She is diuresing on her own and for now, we will allow this to happen without supplements. I update her health care proxy daily. At this point, we will continue as outlined above. Given her issues with rhythm disturbance, she will remain in the intensive care unit (ICU). Further recommendations will be made in the progress record as soon as new information becomes available. ARELIS
[2020-05-25] MEDS: FLUCONAZOLE 100 MG in IV 1 EA IV SCH (12:32)
[2020-05-26] VITALS (16 sets, daily range): BP systolic 145–204; BP diastolic 70–94
--- NOTE | 2020-05-26 01:53 | ECGEPIP ---
[facility] Test Date: 2020-05-25 Pat Name: DOUG LENZ Department: Room: [place] [address] Gender: Female 3D Animator: JEAN : 1955 Requested By: Mariam Hartley Order Number: [id number] Reading MD: Demetrius Baird Measurements Intervals [place] Rate: 89 P: ND: 0 QRS: -19 QRSD: 97 T: -7 QT: 333 QTc: 405 Interpretive Statements ATRIAL FIBRILLATION LEFT VENTRICULAR HYPERTROPHY by aVL criteria Nonspecific T wave abnormality Comparison tracing not on file Electronically Signed on 05-26-2020 1:52:57 EST by Demetrius Baird
[2020-05-26] MEDS: cefTRIAXone SOD 1 GM in D5W MINI-BAG PLUS 50 ML IV SCH ×2 (03:32→15:12)
[2020-05-26] MEDS ORDERED: hydrALAZINE 20MG/ML 1ML VIAL (J0360 PER 20MG) IV PRN (04:15)
[2020-05-26] MEDS: methylPREDNISolone 40MG 1ML VIAL IV SCH ×2 (05:09→17:09)
[2020-05-26] MEDS: SODIUM CHLORIDE 0.9% INJ 10 ML SYR IV SCH ×2 (05:10→17:09)
[2020-05-26 05:35] LABS: HEMATOCRIT 36.6 % (36.0-47.0); HEMOGLOBIN 11.5 g/dl (12.0-15.5); MEAN CORPUSCULAR HEMOGLOBIN 27.3 pg (27.0-33.0); MEAN CORPUSCULAR HGB CONC 31.4 g/dl (32.0-36.5); MEAN CORPUSCULAR VOLUME 86.9 fl (80.0-96.0); PLATELET COUNT, AUTOMATED 541 10^3/uL (150-450); RED BLOOD COUNT 4.21 10^6/uL (4.00-5.40); WHITE BLOOD COUNT 21.8 10^3/uL (4.0-10.0)
[2020-05-26 06:05] LABS: ALBUMIN 1.9 GM/DL (3.2-5.2); ALT/SGPT 30 U/L (12-78); BILIRUBIN,TOTAL 0.4 MG/DL (0.2-1.0); BLOOD UREA NITROGEN 44 MG/DL (7-18); CALCIUM LEVEL 8.1 MG/DL (8.8-10.2); CARBON DIOXIDE LEVEL 27 MEQ/L (21-32); CHLORIDE LEVEL 106 MEQ/L (98-107); CHOLESTEROL LEVEL 185 MG/DL (< 200); CPK CREATINE PHOSPHOKINASE 72 U/L (26-192); CREATININE FOR GFR 0.69 MG/DL (0.55-1.30); GLOMERULAR FILTRATION RATE > 60.0 (>45); GLUCOSE, FASTING 154 MG/DL (70-100); LDH LACTATE DEHYDROGENASE 394 U/L (84-246); PHOSPHORUS LEVEL 3.8 MG/DL (2.5-4.9); POTASSIUM SERUM 4.7 MEQ/L (3.5-5.1); SODIUM LEVEL 139 MEQ/L (136-145); TOTAL PROTEIN 5.4 GM/DL (6.4-8.2); TRIGLYCERIDES LEVEL 114 MG/DL (<150)
[2020-05-26] MEDS: IPRATROPIUM 0.5MG/ALBUTEROL 2.5MG INH SOL UD 3ML (DUONEB) NEB SCH ×4 (07:10→18:28)
[2020-05-26] MEDS ORDERED: hydrALAZINE 20MG/ML 1ML VIAL (J0360 PER 20MG) IV ONE (07:15)
--- NOTE | 2020-05-26 08:55 | REP ---
INDICATION: decreased O2 sats. COMPARISON: 05/25/2020, 05/24/2020, 05/23/2020, 05/22/2020. TECHNIQUE: AP portable seated chest FINDINGS: Right-sided PICC line seen terminating in the SVC. Compared to yesterday's study there is worsening of consolidation on the right and to a lesser extent the left lung. Pattern of heavier infiltrates on the right has persisted for the past several days. No pneumothorax. No gross effusion but limited evaluation of the posterior lower lung zones on a lordotic portable chest. IMPRESSION: Worsening and extensive bilateral infiltrates superimposed on fibrosis. This is worse on the right than left. <Electronically signed by Ricki Schuler > 05/26/20 0812
[2020-05-26] MEDS: AZITHROMYCIN INJ 500 MG, VIAL MATE ADAPTER 1 EACH in D5W 250 ML IV SCH (09:18)
[2020-05-26] MEDS: FUROSEMIDE 40MG/4ML VIAL (J1940) IV SCH (09:19)
[2020-05-26] MEDS: ENOXAPARIN 100MG/1ML SYRINGE (J1650 PER 10MG) SC SCH ×2 (09:19→20:10)
[2020-05-26] MEDS: HumaLOG INSULIN (NovoLOG) PER UNIT SC SCH ×4 (09:19→20:10)
[2020-05-26] MEDS: PANTOPRAZOLE 40MG TAB (PROTONIX) PO SCH (09:20)
[2020-05-26] MEDS: amLODIPine 10 MG TAB PO SCH (09:21)
[2020-05-26] MEDS: METOPROLOL TART 50 MG TAB PO SCH ×2 (09:21→20:10)
[2020-05-26 09:28] LABS: ABG BASE EXCESS 3.6 (-2.0-2.0); ABG HCO3 26.7 MEQ/L (22.0-26.0); ABG O2 SATURATION 91.2 % (95.0-99.0); ABG PARTIAL PRESSURE CO2 35.6 mmHg (35.0-45.0); ABG PARTIAL PRESSURE O2 57.1 mmHg (75.0-100.0); ABG STANDARD HCO3 27.5 MEQ/L (22.0-26.0); ABG TOTAL CO2 27.8 MEQ/L (23.0-31.0); ABG pH (ARTERIAL) 7.493 UNITS (7.350-7.450)
--- NOTE | 2020-05-26 11:02 | CCN ---
DATE: 05/26/2020 CRITICAL CARE TIME: One hour and 4 minutes. This excludes all procedures. SUBJECTIVE: I was called early this morning for worsening hypoxia. She was placed on Vapotherm at 40 L flow 100% FiO2. The patient states she is struggling a little bit more to breathe. She feels a shaky sensation inside, but denies any pain. She has had no fevers over the past 48 hours. She has also been quite hypertensive requiring p.r.n. hydralazine overnight with systolic blood pressures increasing to 204. During those times, she had no headache, no chest pain, and no signs of end-organ damage. She was in atrial fibrillation and has now converted to sinus rhythm with a heart rate of 71. Urine appears clear, remains on three different antibiotic/antifungals. OBJECTIVE: VITAL SIGNS: Temperature 97.2, pulse 71, respiratory rate 24, blood pressure 180/70 and went as high as 204/88 with a mean arterial pressure of 126. Oxygen saturation is 91% on 40 L, 1.0 FiO2. INTAKE/OUTPUT (Is & Os): Yesterday 2500 in, 1700 out. The day before mostly even, the day before that net positive 1.2 liters, the day before that net positive 1.5 liters, and the day before that net positive 2.4 liters. Weight, however, does not appear to have significantly changed over the past three days, but is up 3 kg since the . GENERAL: Patient is awake, but appears anxious. States she is claustrophobic. She is not orthopneic when I lower the bed. She is tachypneic. She has minimal muscle retractions of the upper chest. HEENT: Sclerae clear and anicteric. She has a pupillary defect on the left. Mucous membranes are moist. She has her dentures in place. Tongue is midline. Oropharynx without erythema or exudate. Mallampati IV airway. NECK: Supple. No tracheal deviation or mass. I barely can see the PICC line in the supraclavicular space. LYMPHATICS: No cervical, supraclavicular, or axillary adenopathy. CARDIAC: Regular S1, S2. Distant heart sounds. Difficult to assess jugular venous pressure (JVP). Point of maximal impulse (PMI) is nondisplaced. PULMONARY: Decreased breath sounds in general. I am surprised I do not hear any rhonchi. Breath sounds are more consistent with rales that are not only present at the bases, but are also towards the apices posteriorly. Anteriorly there are no rales. ABDOMEN: Obese, soft, nontender, and nondistended. No discernable hepatosplenomegaly; however, this may be difficult due to patients body habitus. Normoactive bowel sounds. EXTREMITIES: Very large extremities with non-pitting edema and minimal varicosities. SKIN: Pale without rashes, jaundice, or bruising. No cyanosis or clubbing. NEUROLOGIC: Patient is able to sit up by herself without much assistance. No evidence of unilateral weakness. No evidence of tremor or seizure activity. LABORATORY EVALUATION: Sodium 139, potassium 4.7, chloride 106, bicarb 27, BUN 44, creatinine 0.69 with a white blood cell count that is elevated to 21.8. Hemoglobin of 11.5 and hematocrit 36.6 with a platelet count of 551,000. Glucose is 154. IMAGING: Chest x-ray this morning shows again significant infiltrate on the right and less so at the left base. It actually appears worse as far as the density of the infiltrate; however, I was viewing a portable x-ray machine at the time I was interpreting this film. No significant arrhythmias on telemetry. IMPRESSION: 1. Severe hypoxia with recent intubation for community-acquired pneumonia. Patient net positive fluid balance, probable pulmonary edema. Especially in the face of significant systemic hypertension and excellent urine output with good renal function. I think Lasix is warranted as a trial. I have increased her oxygen via Vapotherm. She remains at risk for re-intubation. As far as her pneumonia, she is covered for atypical pneumonia along with community-acquired pneumonia. At this point in time, I would not change antibiotics despite her being on a long duration due to the severity of her illness. There does not seem to be a significant amount of mucous production. Acute interstitial pneumonia remains in the differential. Less likely obesity hypoventilation, but will obtain arterial blood gas. Patient had refused CPAP at night. I also feel that pulmonary embolism is less likely as she remains on high dose Lovenox and has been on deep vein thrombosis (DVT) prophylaxis during the entire hospitalization. Alveolar hemorrhage is unlikely because during bronchoscopy, there was no evidence of hemorrhage. No history of chronic immunosuppression; therefore, pneumocystis pneumonia (PCP) is less likely too. 2. Hypertension. Will initiate Norvasc and Lasix. Monitor for need for additional therapy. 3. Pneumonia. As mentioned above, continue antibiotics due to severity of hypoxia. 4. Obesity. We will check for hypoventilation. 5. Protein malnourishment. Despite obesity, patient is significantly protein malnourished with a low albumin. If there is diffusely with diuresis may require albumin administration. 6. Atrial fibrillation currently in sinus. Will obtain echocardiogram to see if there is any significant systolic dysfunction. Suspect diastolic dysfunction from hypertensive heart disease. Dr. Hartley is on board. We will have him read this study. This will also be helpful in determining the extent of disease contributing to the hypoxia. 7. Deep vein thrombosis (DVT) prophylaxis. Currently on full dose Lovenox. 8. Gastrointestinal (GI) prophylaxis. On Protonix. 9. Leukocytosis. This may be secondary to infection, but may also be secondary to the fact that she remains on high dose Solu-Medrol. With the severity of her hypoxia, we are not going to decrease this at this point in time. The patient remains critically ill and high risk for re-intubation. MTDD
[2020-05-26] MEDS: FLUCONAZOLE 100 MG in IV 1 EA IV SCH (11:14)
[2020-05-27] VITALS (34 sets, daily range): BP systolic 90–170; BP diastolic 56–104
[2020-05-27] MEDS: cefTRIAXone SOD 1 GM in D5W MINI-BAG PLUS 50 ML IV SCH ×2 (03:01→14:50)
[2020-05-27] MEDS: methylPREDNISolone 40MG 1ML VIAL IV SCH (05:50)
[2020-05-27] MEDS: SODIUM CHLORIDE 0.9% INJ 10 ML SYR IV SCH ×2 (05:50→17:32)
[2020-05-27 06:15] LABS: HEMATOCRIT 34.9 % (36.0-47.0); HEMOGLOBIN 11.1 g/dl (12.0-15.5); MEAN CORPUSCULAR HEMOGLOBIN 27.6 pg (27.0-33.0); MEAN CORPUSCULAR HGB CONC 31.8 g/dl (32.0-36.5); MEAN CORPUSCULAR VOLUME 86.8 fl (80.0-96.0); PLATELET COUNT, AUTOMATED 428 10^3/uL (150-450); RED BLOOD COUNT 4.02 10^6/uL (4.00-5.40); WHITE BLOOD COUNT 17.3 10^3/uL (4.0-10.0)
[2020-05-27 06:39] LABS: ALBUMIN 1.9 GM/DL (3.2-5.2); ALT/SGPT 28 U/L (12-78); BILIRUBIN,TOTAL 0.5 MG/DL (0.2-1.0); BLOOD UREA NITROGEN 31 MG/DL (7-18); CARBON DIOXIDE LEVEL 33 MEQ/L (21-32); CHLORIDE LEVEL 103 MEQ/L (98-107); CHOLESTEROL LEVEL 160 MG/DL (< 200); CPK CREATINE PHOSPHOKINASE 61 U/L (26-192); CREATININE FOR GFR 0.51 MG/DL (0.55-1.30); GLOMERULAR FILTRATION RATE > 60.0 (>45); GLUCOSE, FASTING 145 MG/DL (70-100); LDH LACTATE DEHYDROGENASE 389 U/L (84-246); PHOSPHORUS LEVEL 3.2 MG/DL (2.5-4.9); POTASSIUM SERUM 3.7 MEQ/L (3.5-5.1); SODIUM LEVEL 139 MEQ/L (136-145); TOTAL PROTEIN 5.5 GM/DL (6.4-8.2); TRIGLYCERIDES LEVEL 120 MG/DL (<150)
[2020-05-27] MEDS: IPRATROPIUM 0.5MG/ALBUTEROL 2.5MG INH SOL UD 3ML (DUONEB) NEB SCH ×4 (07:06→20:34)
[2020-05-27] MEDS: HumaLOG INSULIN (NovoLOG) PER UNIT SC SCH ×4 (08:28→21:00)
[2020-05-27] MEDS: METOPROLOL TART 50 MG TAB PO SCH ×2 (08:29→19:49)
[2020-05-27] MEDS: amLODIPine 10 MG TAB PO SCH (08:30)
[2020-05-27] MEDS: ENOXAPARIN 100MG/1ML SYRINGE (J1650 PER 10MG) SC SCH ×2 (08:30→19:48)
[2020-05-27] MEDS: PANTOPRAZOLE 40MG TAB (PROTONIX) PO SCH (08:30)
[2020-05-27] MEDS: AZITHROMYCIN INJ 500 MG, VIAL MATE ADAPTER 1 EACH in D5W 250 ML IV SCH (08:30)
[2020-05-27] MEDS: FUROSEMIDE 40MG/4ML VIAL (J1940) IV SCH (08:31)
--- NOTE | 2020-05-27 08:56 | REP ---
INDICATION: severe hypoxia, pneumonia and pulmonary edema. COMPARISON: 05/26/2020, 05/25/2020, 05/24/2020, 05/23/2020. TECHNIQUE: AP portable seated chest FINDINGS: Right-sided PICC line again seen terminating in the SVC. Dense bilateral infiltrates are again seen as on yesterday's study with only slight improvement seen in the upper lung zones. IMPRESSION: 1. Extensive chronic bilateral infiltrates with underlying severe COPD and fibrosis, cardiomegaly and tortuous calcified aorta. 2. There is some mild improvement only in the upper lobes compared to yesterday's study. No other changes. <Electronically signed by Ricki Schuler > 05/27/20 0886
[2020-05-27] MEDS ORDERED: predniSONE 20 MG TAB PO SCH (09:00)
[2020-05-27] MEDS ORDERED: POTASSIUM CHLORIDE 10 MEQ SR TABLET PO ONE (09:00)
[2020-05-27] MEDS: FLUCONAZOLE 100 MG in IV 1 EA IV SCH (14:52)
[2020-05-27] MEDS ORDERED: METOPROLOL 5 MG/5 ML VIAL IV STA ×3 (15:13→18:28)
[2020-05-27] MEDS ORDERED: AMIODARONE HCL 150 MG in IV 1 EA IV STA ×3 (15:36→22:05)
--- NOTE | 2020-05-27 15:49 | IPNPDOC ---
Date Seen The patient was seen on 05/27/20. Progress Note SUBJECTIVE: We were asked to follow patient in ICU with hopes of transferring to our service in next several days. Patient was resting comfortably in bed this AM, no acute complaints. Hypoxic and mildly tachypneic with RR 22. Patient is currently on 40 L flow 80% FiO2 Vapotherm. BP and HR better controlled this AM. Critical Care is being cautious, as patient is low threshold for possible reintubation currently. Denies chest pain, fevers, chills, n/v/d. OBJECTIVE: PHYSICAL EXAMINATION: VS: Please see below I&Os: Intake 1065mL, Outtake 5820 with overall -4.755 L/24 hours GENERAL: Sitting up in bed, tachypneic but communicative, appropriate. HEENT: Left pupil defect, EOMI, moist mucous membranes, dentures, Vapotherm cannula in place NECK: Supple. No tracheal deviation. Supraclavicular central line CVS: S1S2 +, no M/R/G PULMONARY: Bilateral decreased breath sounds, mild crackles in the bases b/l posteriorly. No W/R/R GI: BS + in 4 quad, obese, soft, nontender, and nondistended. No organomegaly EXT: Lower ext edema bilaterally, nonpitting. Warm, pulses + INTEGUMENTARY: Pale without rashes, jaundice, or bruising. No cyanosis or clubbing. NEURO: CN 2-12 intact, AAOx 3, no focal deficits PSYCH: Mood and affect appropriate LABORATORY: Please see below MICROBIOLOGY: Sputum Cx 05/15/20: Yeast organism Resp Virus panel 05/15/20: NEg for COVID, other viruses Bronchial washings, brushings 05/17/20: NG Blood cultures x 2 sets 05/18/20: NG to date IMAGING: CXR 05/27/20: 1. Extensive chronic bilateral infiltrates with underlying severe COPD and fibrosis, cardiomegaly and tortuous calcified aorta. 2. There is some mild improvement only in the upper lobes compared to yesterday's study. No other changes. ASSESSMENT: 65 y/o F with PMH of HTN, obesity, macular degeneration admitted for acute hypoxic respiratory failure 2/2 to community acquired PNA, recently extubated on 05/24/20 and remains in guarded condition in ICU. IMPRESSION: # Acute hypoxic respiratory failure 2/2 to community acquired PNA, pulmonary edema. Cannot r/o acute interstitial PNA, Obesity hypoventilation syndrome as contributing factors to hypoxia as well -Has had bronchoscopy on 05/17/20, remained ventilated and later extubated successfully on 05/24/20 -Currently saturating at 90% on 80% Fio2 Vapotherm, this AM was on 100% so some mild improvement -Net neg fluid status of 4.75 L/24 H -Repeat CXR above -Micro above -WBC 17.3 from 21.8, on steroids-unable to say if this is 2/2 steroid induced leukocytosis vs. infection. Remains afebrile. -Deescalated steroids from methylprednisolone to PO prednisone today -On Ceftriaxone, Azithromycin, Fluconazole, Duoneb ATC, lasix daily -Patient refusing CPAP per pulmonary notes -Monitor I&O's closely, daily wt, daily labs -High risk for reintubation # Atrial fibrillation with RVR -HR 143 this afternoon, given 150 mg IV amiodarone x2 with 5 lopressor. HR remains 130 -Cardiology helping to manage, Dr. Lee -Echocardiogram ordered to r/o HTNive heart disease, CHF -Lovenox BID, CCB and BB BID. -Tele # HTN -C/w CCB, lasix # Obesity -Complicates care -BMI 59.2 -Optimize nutrition #Protein malnutrition -Low albumin -Appreciate full nutrition assessment # GI px -PPI #DVT px -Lovenox therapeutic dosing DISPOSITION: Currently patient remains in guarded position with high risk of reintubation. Critical care primary with us, Cardiology following closely. TOTAL AMOUNT OF CRITICAL CARE TIME SPENT (no procedures): 35 mins VS, I&O, 24H, Fishbone Vital Signs/I&O Vital Signs Date Time Temp Pulse Resp B/P (MAP) Pulse Ox O2 Delivery O2 Flow Rate FiO2 05/27/20 15:24 152 134/81 05/27/20 07:05 90 HVNI-Vapotherm 40.0 80 05/27/20 04:00 98.1 22 I&O- Last 24 Hours up to 6 AM 05/27/20 06:00 Intake Total 1275 ml Output Total 5845 ml Balance -4570 ml Laboratory Data 24H LABS Laboratory Tests 2 05/26/20 17:00: Bedside Glucose (Misc Panel) 99 05/26/20 19:57: Bedside Glucose (Misc Panel) 165H 05/27/20 05:50: Anion Gap 3L, Glomerular Filtration Rate > 60.0, Calcium Level 8.0L, Phosphorus Level 3.2, Total Bilirubin 0.5, Aspartate Amino Transf (AST/SGOT) 16, Alanine Aminotransferase (ALT/SGPT) 28, Alkaline Phosphatase 161H, Lactate Dehydrogenase 389H, Total Creatine Kinase 61, Total Protein 5.5L, Albumin 1.9L, Albumin/Globulin Ratio 0.5L, Triglycerides Level 120, Cholesterol Level 160 05/27/20 05:51: Nucleated Red Blood Cells % (auto) 0.0 05/27/20 08:19: Bedside Glucose (Misc Panel) 157H 05/27/20 11:30: Bedside Glucose (Misc Panel) 171H CBC/BMP Laboratory Tests 05/27/20 05:50 05/27/20 05:51 Microbiology Microbiology 05/18/20 Blood Culture - Final, Complete NO GROWTH AFTER 5 DAYS 05/18/20 Blood Culture - Final, Complete NO GROWTH AFTER 5 DAYS 05/17/20 Bronchial Clay Culture - Final, Complete 05/17/20 Gram Stain - Final, Complete 05/17/20 Bronchial Aspirate Culture - Final, Complete Current Medications Current Medications Medications (Trade) Dose Ordered Sig/Patria Route PRN Reason Start Time Stop Time Status Last Admin Dose Admin Acetaminophen (Tylenol Suppository) 650 mg Q4HP PRN [place] PAIN / FEVER 05/15/20 13:45 05/16/20 19:52 DC 05/15/20 20:22 Acetaminophen (Tylenol Suspension) 650 mg Q4HP PRN GT PAIN OR FEVER 05/16/20 20:00 05/20/20 21:13 Albuterol/ Ipratropium (Duoneb (Ipr 0.5mg/Alb 2.5mg)) 3 ml RQID NEB 05/15/20 16:00 05/27/20 12:59 Amiodarone HCl 150 mg/IV Miscellaneous Supplies 100 ml @ 600 mls/hr STAT STAT IV 05/27/20 15:36 05/27/20 15:45 DC Amlodipine Besylate (Norvasc) 10 mg DAILY PO 05/26/20 09:00 05/27/20 08:30 Azithromycin 500 mg/IV Miscellaneous Supplies 1 each/ Dextrose 255 ml @ 255 mls/hr Q24H IV 05/19/20 10:00 05/27/20 08:30 Bisacodyl (Dulcolax Suppository) 10 mg DAILYPRN PRN [place] CONSTIPATION 05/19/20 09:30 05/22/20 09:57 Ceftriaxone Sodium 1 gm/ Dextrose 50 ml @ 100 mls/hr Q12H IV 05/15/20 15:00 05/27/20 14:50 Chlorhexidine Gluconate (Peridex Oral Rinse) SWAB/BRUSH ORAL CAVITY BID MT 05/15/20 21:00 05/24/20 08:55 DC 05/23/20 21:53 Dextrose (Dextrose 50%) 25 ml ASDIRECTED PRN IV SEE LABEL COMMENTS 05/15/20 14:30 Dextrose/Sodium Chloride 1,000 ml @ 80 mls/hr [id number] IV 05/15/20 18:00 05/22/20 08:54 DC 05/21/20 23:33 Digoxin (Lanoxin) 0.25 mg STAT STAT IV 05/25/20 00:19 05/25/20 00:21 DC 05/25/20 00:41 Enoxaparin Sodium (Lovenox) 100 mg Q12H SC 05/25/20 09:00 05/27/20 08:30 Fluconazole 100 mg/IV Miscellaneous Supplies 50 ml @ 50 mls/hr Q24H IV 05/19/20 11:00 05/27/20 14:52 Furosemide (LASIX injection) 40 mg DAILY IV 05/26/20 09:00 05/27/20 08:31 Glucagon (Glucagon) 1 mg ASDIRECTED PRN SC SEE LABEL COMMENTS 05/15/20 14:30 Glucose (Glucose) 16 GM ASDIRECTED PRN PO SEE LABEL COMMENTS 05/15/20 14:30 Heparin Sodium (Heparin (Flush)) 200 units ASDIRECTED PRN IV SEE LABEL COMMENTS 05/17/20 18:15 05/24/20 00:36 Heparin Sodium (Heparin (Flush)) 200 units PICC IV 05/18/20 06:00 05/27/20 05:50 Heparin Sodium (Porcine) (Heparin) 5,000 units Q8H SC 05/15/20 22:00 05/25/20 08:09 DC 05/25/20 05:35 Home Med (Med Rec Complete!) ASDIRECTED XX 05/15/20 14:30 05/15/20 14:24 DC Hydralazine HCl (Apresoline) 12.5 mg Q4HP PRN IV HTN 05/26/20 04:15 05/26/20 04:32 Insulin Human Lispro (HumaLOG INSULIN) SEE PROTOCOL TABLE Q6H SC 05/15/20 18:00 05/25/20 06:26 DC 05/25/20 05:35 Insulin Human Lispro (HumaLOG INSULIN) See Protocol Table AC SC 05/25/20 07:30 05/27/20 14:50 Insulin Human Lispro (HumaLOG INSULIN) See Protocol Table QHS SC 05/25/20 21:00 Methylprednisolone (SOLU medrol) 40 mg Q12H IV 05/25/20 18:00 05/27/20 08:48 DC 05/27/20 05:50 Methylprednisolone (SOLU medrol) 40 mg Q8H IV 05/24/20 22:00 05/25/20 09:26 DC 05/25/20 05:36 Methylprednisolone (SOLUmedrol) 40 mg Q8H IV 05/23/20 14:00 05/24/20 20:55 DC 05/24/20 13:56 Methylprednisolone (SOLUmedrol) 80 mg Q8H IV 05/18/20 14:00 05/23/20 09:03 DC 05/23/20 06:13 Metoclopramide HCl (REGLAN INJection) 10 mg Q6H IV 05/20/20 22:00 05/24/20 08:55 DC 05/24/20 03:47 Metoprolol Tartrate (Lopressor) 5 mg STAT STAT IV 05/27/20 15:13 05/27/20 15:15 DC 05/27/20 15:24 Metoprolol Tartrate (Lopressor) 50 mg BID PO 05/24/20 17:00 05/27/20 08:29 Metoprolol Tartrate (Lopressor) 50 mg BID PO 05/24/20 21:00 05/24/20 16:53 DC Midazolam HCl (Versed) 2 mg Q15MP PRN IV AGITATION 05/15/20 13:15 05/24/20 08:55 DC 05/24/20 03:48 Midazolam HCl 100 mg/Dextrose 100 ml @ 4 mls/hr Q24H IV 05/18/20 05:00 05/23/20 12:17 DC 05/21/20 19:11 Miscellaneous (Unresolved Clarification Entry) SEE LABEL COMMENTS DAILY XX 05/20/20 09:00 05/20/20 10:52 DC Miscellaneous (Unresolved Clarification Entry) SEE LABEL COMMENTS DAILY XX 05/21/20 09:00 05/22/20 07:21 DC Miscellaneous (Unresolved Clarification Entry) SEE LABEL COMMENTS DAILY XX 05/23/20 09:00 05/23/20 12:53 DC Morphine Sulfate (Morphine Sulfate Inj) 2 mg Q15M PRN IV SEVERE PAIN (PS 8-10) 05/15/20 14:15 05/24/20 08:55 DC 05/24/20 03:48 Non-Formulary Medication (Refrigerator Santacruz) Q1M PRN XX SEE LABEL COMMENTS 05/18/20 04:15 05/23/20 12:17 DC Pantoprazole Sodium (Protonix) 40 mg DAILY PO 05/25/20 09:00 05/27/20 08:30 Pantoprazole Sodium (Protonix) 40 mg DAILY@2100 IV 05/15/20 21:00 05/25/20 08:44 DC 05/24/20 21:29 Prednisone (Deltasone) 20 mg DAILY PO 05/27/20 09:00 05/27/20 09:34 Propofol 1000 mg/ IV Miscellaneous Supplies 100 ml @ 7.968 mls/ hr [id number] IV 05/15/20 16:30 05/19/20 09:28 DC 05/18/20 06:16 Sodium Chloride (Saline Lock Flush) 10 ml ASDIRECTED PRN IV SEE LABEL COMMENTS 05/17/20 18:15 05/24/20 00:36 Sodium Chloride (Saline Lock Flush) 10 ml PICC IV 05/18/20 06:00 05/27/20 05:50 Allergies Coded Allergies: No Known Allergies (Unverified , 05/15/20) PER Karly Schmitt MD May 27, 2020 15:49
[2020-05-28] VITALS (23 sets, daily range): BP systolic 98–161; BP diastolic 58–104
[2020-05-28] MEDS: cefTRIAXone SOD 1 GM in D5W MINI-BAG PLUS 50 ML IV SCH ×2 (03:30→14:35)
[2020-05-28] MEDS ORDERED: AMIODARONE HCL 150 MG in IV 1 EA IV STA (03:44)
[2020-05-28] MEDS ORDERED: METOPROLOL 5 MG/5 ML VIAL IV STA (03:44)
[2020-05-28 05:35] LABS: HEMATOCRIT 37.6 % (36.0-47.0); HEMOGLOBIN 12.3 g/dl (12.0-15.5); MEAN CORPUSCULAR HEMOGLOBIN 28.2 pg (27.0-33.0); MEAN CORPUSCULAR HGB CONC 32.7 g/dl (32.0-36.5); MEAN CORPUSCULAR VOLUME 86.2 fl (80.0-96.0); PLATELET COUNT, AUTOMATED 436 10^3/uL (150-450); RED BLOOD COUNT 4.36 10^6/uL (4.00-5.40); WHITE BLOOD COUNT 21.9 10^3/uL (4.0-10.0)
[2020-05-28 05:51] LABS: ALBUMIN 1.9 GM/DL (3.2-5.2); ALT/SGPT 26 U/L (12-78); BILIRUBIN,TOTAL 0.4 MG/DL (0.2-1.0); BLOOD UREA NITROGEN 25 MG/DL (7-18); CARBON DIOXIDE LEVEL 32 MEQ/L (21-32); CHLORIDE LEVEL 101 MEQ/L (98-107); CHOLESTEROL LEVEL 182 MG/DL (< 200); CPK CREATINE PHOSPHOKINASE 78 U/L (26-192); GLOMERULAR FILTRATION RATE > 60.0 (>45); GLUCOSE, FASTING 158 MG/DL (70-100); LDH LACTATE DEHYDROGENASE 429 U/L (84-246); PHOSPHORUS LEVEL 2.2 MG/DL (2.5-4.9); POTASSIUM SERUM 3.4 MEQ/L (3.5-5.1); SODIUM LEVEL 139 MEQ/L (136-145); TOTAL PROTEIN 5.7 GM/DL (6.4-8.2); TRIGLYCERIDES LEVEL 128 MG/DL (<150)
[2020-05-28] MEDS: SODIUM CHLORIDE 0.9% INJ 10 ML SYR IV SCH ×2 (05:57→17:58)
--- NOTE | 2020-05-28 08:49 | REP ---
INDICATION: HYPOXIC RESPIRATORY FAILURE, PNEUMONIA, CHF. COMPARISON: 05/27/2020, 05/26/2020, 05/25/2020 TECHNIQUE: Portable AP seated chest FINDINGS: Right-sided PICC line terminating in the SVC. Extensive the right lung alveolar and interstitial infiltrates with less significant left mid and lower lung zone infiltrates. There is sparing of the left upper lung zone. No significant changes. IMPRESSION: 1. Extensive chronic bilateral filtrates with underlying severe COPD and fibrosis, cardiomegaly and tortuous calcified aorta. There is no interval change. <Electronically signed by Ricki Schuler > 05/28/20 1298
[2020-05-28] MEDS: IPRATROPIUM 0.5MG/ALBUTEROL 2.5MG INH SOL UD 3ML (DUONEB) NEB SCH (08:50)
[2020-05-28] MEDS ORDERED: POTASSIUM CHLORIDE 10 MEQ SR TABLET PO ONE ×2 (09:00→10:00)
[2020-05-28] MEDS ORDERED: VANCOMYCIN HCL 1,000 MG, VIAL MATE ADAPTER 1 EACH in D5W 250 ML IV ONE (09:00)
[2020-05-28] MEDS ORDERED: predniSONE 10 MG TAB PO ONE (09:00)
[2020-05-28] MEDS: LACTOBACILLUS ACIDOPHILUS CAP (BACID) PO SCH ×3 (09:32→17:56)
[2020-05-28] MEDS: FUROSEMIDE 40MG/4ML VIAL (J1940) IV SCH (09:33)
[2020-05-28] MEDS: amLODIPine 10 MG TAB PO SCH (09:33)
[2020-05-28] MEDS: PANTOPRAZOLE 40MG TAB (PROTONIX) PO SCH (09:33)
[2020-05-28] MEDS: METOPROLOL TARTRATE 100 MG TAB PO SCH ×2 (09:33→21:01)
[2020-05-28] MEDS: HumaLOG INSULIN (NovoLOG) PER UNIT SC SCH ×4 (09:35→21:00)
[2020-05-28] MEDS: ENOXAPARIN 100MG/1ML SYRINGE (J1650 PER 10MG) SC SCH ×2 (09:39→21:02)
[2020-05-28] MEDS: K-PHOS NEUTRAL 250MG TABLET (SOD.PHOSPHATE/POT.PHOSPHATE) PO SCH ×3 (09:40→21:01)
[2020-05-28] MEDS ORDERED: DIGOXIN INJ 0.5 MG/2 ML AMP (J1160) IV STA ×2 (10:29→15:33)
[2020-05-28 10:32] LABS: MAGNESIUM LEVEL 1.6 MG/DL (1.8-2.4)
[2020-05-28] MEDS: FLUCONAZOLE 100 MG in IV 1 EA IV SCH (11:13)
[2020-05-28] MEDS ORDERED: MAG SULF 1GM/100ML (MAG RUN) 1 GM in IV 1 EA IV ONE (12:00)
[2020-05-28] MEDS: LEVALBUTEROL 1.25 MG/0.5 ML CONCENTRATE NEB INH SCH ×2 (14:24→20:15)
--- NOTE | 2020-05-28 14:25 | IPNPDOC ---
Date Seen The patient was seen on 05/28/20. Progress Note SUBJECTIVE: Patient has had atrial fibrillation with RVR throughout 05/27-03/09 with little improvement. S/p four amiodarone 150mg boluses. Trying digoxin today. Cardiology, Dr. Lee, following closely. Patient states to feel slightly improved this morning when examined. RR 20-22, saturating 91-93% on 70-80 % FiO2. She has felt palpitations over the evening but currently denies chest pain, fevers, chills, n/v/d. OBJECTIVE: PHYSICAL EXAMINATION: VS: Please see below I&Os: Intake 2100mL, Outtake 4395 with overall - 2295 L/24 hours GENERAL: Sitting up in bed, appropriate. HEENT: Left pupil defect, EOMI, moist mucous membranes, dentures, Vapotherm cannula in place NECK: Supple. No tracheal deviation. Supraclavicular central line CVS: S1S2 +, no M/R/G PULMONARY: Bilateral decreased breath sounds, crackles in the bases b/l posteriorly. No W/R/R GI: BS + in 4 quad, obese, soft, nontender, and nondistended. No organomegaly EXT: Lower ext edema bilaterally, nonpitting. Warm, pulses + INTEGUMENTARY: Pale without rashes, jaundice, or bruising. No cyanosis or clubbing. NEURO: CN 2-12 intact, AAOx 3, no focal deficits PSYCH: Mood and affect appropriate LABORATORY: Please see below MICROBIOLOGY: Sputum Cx 05/15/20: Yeast organism Resp Virus panel 05/15/20: NEg for COVID, other viruses Bronchial washings, brushings 05/17/20: NG Blood cultures x 2 sets 05/18/20: NG to date IMAGING: CXR 05/28/20: Extensive chronic bilateral filtrates with underlying severe COPD and fibrosis, cardiomegaly and tortuous calcified aorta. There is no interval change. CXR 05/27/20: 1. Extensive chronic bilateral infiltrates with underlying severe COPD and fibrosis, cardiomegaly and tortuous calcified aorta. 2. There is some mild improvement only in the upper lobes compared to yesterday's study. No other changes. ASSESSMENT: 65 y/o F with PMH of HTN, obesity, macular degeneration admitted for acute hypoxic respiratory failure 2/2 to community acquired PNA, recently extuba martha on 05/24/20 and remains in guarded condition in ICU. IMPRESSION: # Acute hypoxic respiratory failure 2/2 to community acquired PNA, pulmonary edema. Cannot r/o acute interstitial PNA, Obesity hypoventilation syndrome as contributing factors to hypoxia as well -Has had bronchoscopy on 05/17/20, remained ventilated and later extubated successfully on 05/24/20 -Saturating 91-93% on 70-80 % FiO2 Vapotherm -Net neg fluid status -Repeat CXR above -Micro above -WBC 21.9, on steroids-unable to say if this is 2/2 steroid induced leukocytosis vs. infection. Remains afebrile. -Added Vancomycin (Day1) ,Ceftriaxone (Day 13), Azithromycin (Day 9), Fluconazole (Day 9), PO prednisone, Duoneb ATC, lasix daily. C/w acapella Q2 H while awake -Patient refusing CPAP per pulmonary notes -Monitor I&O's closely, daily wt, daily labs -High risk for reintubation # Atrial fibrillation with RVR, new this admission -S/p four amiodarone boluses, little improvement in HR -Cardiology helping to manage, Dr. Lee -Echocardiogram done, awaiting results -Lovenox BID, CCB and BB BID. -Tele # HTN -C/w CCB, lasix, BB # Obesity -Complicates care -BMI 59.2 -Optimize nutrition #Protein malnutrition -Low albumin -Appreciate full nutrition assessment # GI px -PPI #DVT px -Lovenox therapeutic dosing DISPOSITION: Currently patient remains in guarded position with high risk of reintubation. Critical care primary with Hospitalists, Cardiology following closely. TOTAL AMOUNT OF CRITICAL CARE TIME SPENT (no procedures): 35 mins VS, I&O, 24H, Fishbone Vital Signs/I&O Vital Signs Date Time Temp Pulse Resp B/P (MAP) Pulse Ox O2 Delivery O2 Flow Rate FiO2 05/28/20 10:38 129 05/28/20 10:00 20 138/74 (95) 93 HVNI-Vapotherm 40.0 80 05/28/20 08:00 98.0 I&O- Last 24 Hours up to 6 AM 05/28/20 06:00 Intake Total 2080 ml Output Total 5075 ml Balance -2995 ml Laboratory Data 24H LABS Laboratory Tests 2 05/27/20 17:29: Bedside Glucose (Misc Panel) 223H 05/27/20 19:51: Bedside Glucose (Misc Panel) 152H 05/28/20 04:49: Nucleated Red Blood Cells % (auto) 0.0, Anion Gap 6L, Glomerular Filtration Rate > 60.0, Calcium Level 8.0L, Phosphorus Level 2.2#L, Magnesium Level 1.6L, Total Bilirubin 0.4, Aspartate Amino Transf (AST/SGOT) 15, Alanine Aminotransferase (ALT/SGPT) 26, Alkaline Phosphatase 157H, Lactate Dehydrogenase 429H, Total Creatine Kinase 78, Total Protein 5.7L, Albumin 1.9L, Albumin/Globulin Ratio 0.5L, Triglycerides Level 128, Cholesterol Level 182 05/28/20 07:55: Bedside Glucose (Misc Panel) 131H 05/28/20 12:40: Bedside Glucose (Misc Panel) 133H CBC/BMP Laboratory Tests 05/27/20 16:05 05/28/20 04:49 Microbiology Microbiology 05/18/20 Blood Culture - Final, Complete NO GROWTH AFTER 5 DAYS 05/18/20 Blood Culture - Final, Complete NO GROWTH AFTER 5 DAYS Current Medications Current Medications Medications (Trade) Dose Ordered Sig/Patria Route PRN Reason Start Time Stop Time Status Last Admin Dose Admin Acetaminophen (Tylenol Suppository) 650 mg Q4HP PRN [place] PAIN / FEVER 05/15/20 13:45 05/16/20 19:52 DC 05/15/20 20:22 Acetaminophen (Tylenol Suspension) 650 mg Q4HP PRN GT PAIN OR FEVER 05/16/20 20:00 05/20/20 21:13 Albuterol/ Ipratropium (Duoneb (Ipr 0.5mg/Alb 2.5mg)) 3 ml RQID NEB 05/15/20 16:00 05/28/20 11:48 DC 05/28/20 08:50 Amiodarone HCl 150 mg/IV Miscellaneous Supplies 100 ml @ 600 mls/hr STAT STAT IV 05/27/20 15:36 05/27/20 15:45 DC 05/27/20 16:01 Amiodarone HCl 150 mg/IV Miscellaneous Supplies 100 ml @ 600 mls/hr STAT STAT IV 05/27/20 17:14 05/27/20 17:23 DC 05/27/20 17:28 Amiodarone HCl 150 mg/IV Miscellaneous Supplies 100 ml @ 600 mls/hr STAT STAT IV 05/27/20 22:05 05/27/20 22:14 DC 05/27/20 22:23 Amiodarone HCl 150 mg/IV Miscellaneous Supplies 100 ml @ 600 mls/hr STAT STAT IV 05/28/20 03:44 05/28/20 03:53 DC 05/28/20 04:08 Amlodipine Besylate (Norvasc) 10 mg DAILY PO 05/26/20 09:00 05/28/20 08:16 DC 05/27/20 08:30 Amlodipine Besylate (Norvasc) 10 mg DAILY PO 05/28/20 09:00 05/28/20 09:33 Azithromycin 500 mg/IV Miscellaneous Supplies 1 each/ Dextrose 255 ml @ 255 mls/hr Q24H IV 05/19/20 10:00 05/28/20 08:12 DC 05/27/20 08:30 Bisacodyl (Dulcolax Suppository) 10 mg DAILYPRN PRN [place] CONSTIPATION 05/19/20 09:30 05/22/20 09:57 Ceftriaxone Sodium 1 gm/ Dextrose 50 ml @ 100 mls/hr Q12H IV 05/15/20 15:00 05/28/20 03:30 Chlorhexidine Gluconate (Peridex Oral Rinse) SWAB/BRUSH ORAL CAVITY BID MT 05/15/20 21:00 05/24/20 08:55 DC 05/23/20 21:53 Dextrose (Dextrose 50%) 25 ml ASDIRECTED PRN IV SEE LABEL COMMENTS 05/15/20 14:30 Dextrose/Sodium Chloride 1,000 ml @ 80 mls/hr [id number] IV 05/15/20 18:00 05/22/20 08:54 DC 05/21/20 23:33 Digoxin (Lanoxin) 0.25 mg STAT STAT IV 05/25/20 00:19 05/25/20 00:21 DC 05/25/20 00:41 Digoxin (Lanoxin) 0.25 mg STAT STAT IV 05/28/20 10:29 05/28/20 10:31 DC 05/28/20 10:38 Enoxaparin Sodium (Lovenox) 100 mg Q12H SC 05/25/20 09:00 05/28/20 09:39 Fluconazole 100 mg/IV Miscellaneous Supplies 50 ml @ 50 mls/hr Q24H IV 05/19/20 11:00 05/28/20 11:13 Furosemide (LASIX injection) 40 mg DAILY IV 05/26/20 09:00 05/28/20 09:33 Glucagon (Glucagon) 1 mg ASDIRECTED PRN SC SEE LABEL COMMENTS 05/15/20 14:30 Glucose (Glucose) 16 GM ASDIRECTED PRN PO SEE LABEL COMMENTS 05/15/20 14:30 Heparin Sodium (Heparin (Flush)) 200 units ASDIRECTED PRN IV SEE LABEL COMMENTS 05/17/20 18:15 05/24/20 00:36 Heparin Sodium (Heparin (Flush)) 200 units PICC IV 05/18/20 06:00 05/28/20 05:57 Heparin Sodium (Porcine) (Heparin) 5,000 units Q8H SC 05/15/20 22:00 05/25/20 08:09 DC 05/25/20 05:35 Home Med (Med Rec Complete!) ASDIRECTED XX 05/15/20 14:30 05/15/20 14:24 DC Hydralazine HCl (Apresoline) 12.5 mg Q4HP PRN IV HTN 05/26/20 04:15 05/26/20 04:32 Insulin Human Lispro (HumaLOG INSULIN) SEE PROTOCOL TABLE Q6H [place] 05/15/20 18:00 05/25/20 06:26 DC 05/25/20 05:35 Insulin Human Lispro (HumaLOG INSULIN) See Protocol Table AC SC 05/25/20 07:30 05/28/20 12:43 Insulin Human Lispro (HumaLOG INSULIN) See Protocol Table QHS [place] 05/25/20 21:00 Lactobacillus Acidophilus (Bacid) 1 ea WM PO 05/28/20 08:00 05/28/20 12:43 Levalbuterol HCl (Xopenex Neb) 0.63 mg RTID INH 05/28/20 14:00 Methylprednisolone (SOLU medrol) 40 mg Q12H IV 05/25/20 18:00 05/27/20 08:48 DC 05/27/20 05:50 Methylprednisolone (SOLU medrol) 40 mg Q8H IV 05/24/20 22:00 05/25/20 09:26 DC 05/25/20 05:36 Methylprednisolone (SOLUmedrol) 40 mg Q8H IV 05/23/20 14:00 05/24/20 20:55 DC 05/24/20 13:56 Methylprednisolone (SOLUmedrol) 80 mg Q8H IV 05/18/20 14:00 05/23/20 09:03 DC 05/23/20 06:13 Metoclopramide HCl (REGLAN INJection) 10 mg Q6H IV 05/20/20 22:00 05/24/20 08:55 DC 05/24/20 03:47 Metoprolol Tartrate (Lopressor) 2.5 mg STAT STAT IV 05/27/20 18:28 05/27/20 18:29 DC 05/27/20 18:33 Metoprolol Tartrate (Lopressor) 5 mg STAT STAT IV 05/27/20 15:13 05/27/20 15:15 DC 05/27/20 15:24 Metoprolol Tartrate (Lopressor) 5 mg STAT STAT IV 05/27/20 17:14 05/27/20 17:16 DC 05/27/20 17:23 Metoprolol Tartrate (Lopressor) 5 mg STAT STAT IV 05/28/20 03:44 05/28/20 03:46 DC 05/28/20 04:09 Metoprolol Tartrate (Lopressor) 50 mg BID PO 05/24/20 17:00 05/28/20 08:13 DC 05/27/20 19:49 Metoprolol Tartrate (Lopressor) 50 mg BID PO 05/24/20 21:00 05/24/20 16:53 DC Metoprolol Tartrate (Lopressor) 100 mg BID PO 05/28/20 09:00 05/28/20 09:33 Midazolam HCl (Versed) 2 mg Q15MP PRN IV AGITATION 05/15/20 13:15 05/24/20 08:55 DC 05/24/20 03:48 Midazolam HCl 100 mg/Dextrose 100 ml @ 4 mls/hr Q24H IV 05/18/20 05:00 05/23/20 12:17 DC 05/21/20 19:11 Miscellaneous (Unresolved Clarification Entry) SEE LABEL COMMENTS DAILY XX 05/20/20 09:00 05/20/20 10:52 DC Miscellaneous (Unresolved Clarification Entry) SEE LABEL COMMENTS DAILY XX 05/21/20 09:00 05/22/20 07:21 DC Miscellaneous (Unresolved Clarification Entry) SEE LABEL COMMENTS DAILY XX 05/23/20 09:00 05/23/20 12:53 DC Morphine Sulfate (Morphine Sulfate Inj) 2 mg Q15M PRN IV SEVERE PAIN (PS 8-10) 05/15/20 14:15 05/24/20 08:55 DC 05/24/20 03:48 Non-Formulary Medication (Refrigerator Santacruz) Q1M PRN XX SEE LABEL COMMENTS 05/18/20 04:15 05/23/20 12:17 DC Pantoprazole Sodium (Protonix) 40 mg DAILY PO 05/25/20 09:00 05/28/20 09:33 Pantoprazole Sodium (Protonix) 40 mg DAILY@2100 IV 05/15/20 21:00 05/25/20 08:44 DC 05/24/20 21:29 Potassium Phos/ Sodium Phos (K-Phos Neutral) 250 mg TID PO 05/28/20 09:00 05/28/20 09:40 Prednisone (Deltasone) 20 mg DAILY PO 05/27/20 09:00 05/28/20 08:34 DC 05/27/20 09:34 Propofol 1000 mg/ IV Miscellaneous Supplies 100 ml @ 7.968 mls/ hr [id number] IV 05/15/20 16:30 05/19/20 09:28 DC 05/18/20 06:16 Sodium Chloride (Saline Lock Flush) 10 ml ASDIRECTED PRN IV SEE LABEL COMMENTS 05/17/20 18:15 05/24/20 00:36 Sodium Chloride (Saline Lock Flush) 10 ml PICC IV 05/18/20 06:00 05/28/20 05:57 Vancomycin HCl 1000 mg/IV Miscellaneous Supplies 1 each/ Dextrose 270 ml @ 270 mls/hr Q8H IV 05/28/20 14:00 Allergies Coded Allergies: No Known Allergies (Unverified , 05/15/20) PER [facility] Karly Joseph MD May 28, 2020 14:25
[2020-05-28] MEDS: VANCOMYCIN HCL 1,000 MG, VIAL MATE ADAPTER 1 EACH in D5W 250 ML IV SCH ×2 (14:33→21:02)
--- NOTE | 2020-05-28 18:10 | ECGEPIP ---
[facility] Test Date: 2020-05-28 Pat Name: DOUG LENZ Department: Room: [place] [address] Gender: Female [place]: SADAF : [id number] Requested By: YULISSA RODAS Order Number: [id number] Reading MD: Demetrius Baird Measurements Intervals [place] Rate: 103 P: WI: 0 QRS: -20 QRSD: 95 T: -43 QT: 333 QTc: 436 Interpretive Statements Atrial flutter with rapid rate LEFT VENTRICULAR HYPERTROPHY by aVL criteria NONSPECIFIC ST & T-WAVE ABNORMALITY Baseline artifact Similar to tracing done 05-25-20 Electronically Signed on 05-28-2020 18:10:17 EST by Demetrius Baird
[2020-05-29] VITALS: BP 136/88
[2020-05-29 02:25] VITALS: BP 128/67
[2020-05-29] MEDS: cefTRIAXone SOD 1 GM in D5W MINI-BAG PLUS 50 ML IV SCH ×2 (02:41→16:47)
[2020-05-29 04:30] LABS: HEMATOCRIT 35.5 % (36.0-47.0); HEMOGLOBIN 11.3 g/dl (12.0-15.5); MEAN CORPUSCULAR HEMOGLOBIN 27.9 pg (27.0-33.0); MEAN CORPUSCULAR HGB CONC 31.8 g/dl (32.0-36.5); MEAN CORPUSCULAR VOLUME 87.7 fl (80.0-96.0); PLATELET COUNT, AUTOMATED 344 10^3/uL (150-450); RED BLOOD COUNT 4.05 10^6/uL (4.00-5.40); WHITE BLOOD COUNT 16.3 10^3/uL (4.0-10.0)
[2020-05-29 04:56] LABS: ALBUMIN 1.8 GM/DL (3.2-5.2); ALT/SGPT 25 U/L (12-78); BILIRUBIN,TOTAL 0.8 MG/DL (0.2-1.0); BLOOD UREA NITROGEN 22 MG/DL (7-18); CALCIUM LEVEL 7.7 MG/DL (8.8-10.2); CARBON DIOXIDE LEVEL 35 MEQ/L (21-32); CHLORIDE LEVEL 101 MEQ/L (98-107); CREATININE FOR GFR 0.45 MG/DL (0.55-1.30); GLOMERULAR FILTRATION RATE > 60.0 (>45); GLUCOSE, FASTING 120 MG/DL (70-100); POTASSIUM SERUM 3.7 MEQ/L (3.5-5.1); SODIUM LEVEL 141 MEQ/L (136-145); TOTAL PROTEIN 4.8 GM/DL (6.4-8.2)
[2020-05-29] MEDS: VANCOMYCIN HCL 1,000 MG, VIAL MATE ADAPTER 1 EACH in D5W 250 ML IV SCH ×3 (05:46→22:15)
[2020-05-29] MEDS: SODIUM CHLORIDE 0.9% INJ 10 ML SYR IV SCH ×2 (05:55→18:12)
--- NOTE | 2020-05-29 06:40 | REP ---
INDICATION: HYPOXIA, PNEUMONIA COMPARISON: 05/28/2020-05/24/2020 TECHNIQUE: Portable AP view of the chest FINDINGS: Right-sided PICC line with tip in the SVC again noted. Visualized portions of the mediastinum and cardiac silhouette are stable. Diffuse bilateral parenchymal opacities (right greater than left) are relatively unchanged when compared to recent prior examinations. Small pleural reactions cannot be excluded. No evidence for pneumothorax. Skeletal structures are grossly intact. IMPRESSION: No significant change from prior examination. Continued multifocal infiltrates (right greater than left). <Electronically signed by Yuri Bolton > 05/29/20 0636
[2020-05-29 07:39] VITALS: BP 135/74
[2020-05-29] MEDS: FUROSEMIDE 40MG/4ML VIAL (J1940) IV SCH (08:35)
[2020-05-29] MEDS: ENOXAPARIN 100MG/1ML SYRINGE (J1650 PER 10MG) SC SCH (08:35)
[2020-05-29] MEDS: amLODIPine 10 MG TAB PO SCH (08:36)
[2020-05-29] MEDS: HumaLOG INSULIN (NovoLOG) PER UNIT SC SCH ×4 (08:36→20:36)
[2020-05-29] MEDS: METOPROLOL TARTRATE 100 MG TAB PO SCH ×2 (08:36→20:36)
[2020-05-29] MEDS: K-PHOS NEUTRAL 250MG TABLET (SOD.PHOSPHATE/POT.PHOSPHATE) PO SCH ×3 (08:36→20:36)
[2020-05-29] MEDS: PANTOPRAZOLE 40MG TAB (PROTONIX) PO SCH (08:37)
[2020-05-29] MEDS: AMIODARONE 200 MG TAB (PACERONE) PO SCH ×2 (08:37→20:36)
[2020-05-29] MEDS: LACTOBACILLUS ACIDOPHILUS CAP (BACID) PO SCH ×3 (08:37→18:11)
[2020-05-29] MEDS ORDERED: POTASSIUM CHL PWD 20 MEQ PACKET PO SCH (09:00)
[2020-05-29] MEDS: LEVALBUTEROL 1.25 MG/0.5 ML CONCENTRATE NEB INH SCH ×3 (09:01→20:58)
--- NOTE | 2020-05-29 09:49 | CCN ---
DATE: 05/27/2020 CRITICAL CARE TIME: 57 minutes, this excludes all procedures. SUBJECTIVE: Katrin states that she had a better night as far as breathing. She states that she has been shaken up with chest PT and has been producing brown to clear mucous. She has had no fevers or chills. She states she was able to actually sleep. She is now negative 4.7 liters in the past 24 hours. Oxygen requirements continue to be high although slightly less than yesterday 40 liters and an FiO2 of 0.8 to 0.9 rather than 1.0. Oxygen saturations ranging high 80s to low 90s. When patient speaks rapidly oxygen desaturation occurs. Continues to deny orthopnea and is getting out of bed starting to ambulate. No diarrhea. OBJECTIVE: VITAL SIGNS: Temperature 98.1, pulse 66, blood pressure 162/85 with a mean arterial pressure of 110, respiratory rate 22 to 24. GENERAL: Awake, alert, and oriented. Affect and mood are appropriate. Nutrition and hygiene are fair. HEENT: Sclerae clear, nonicteric. Pupils equal and reactive to light. Dentition in poor repair on the bottom and upper dentures in place. Mallampati IV airway. NECK: Supple. No tracheal deviation or mass. LYMPHATIC: No cervical, supraclavicular, or axillary adenopathy. CARDIAC: Distant S1, S2 without audible murmur, rub, or gallop. No discernable elevated jugular venous pressure (JVP). PULMONARY: Improved rales, but still present mostly at the bases. No rhonchi. No wheeze. No prolongation of expiratory phase. No dullness to percussion. At this point in time, no accessory muscle use which is different from yesterday. ABDOMEN: Obese, soft, and nontender. No discernable hepatosplenomegaly. No masses or hernia. EXTREMITIES: No cyanosis or clubbing. There is non-pitting edema. Significant excessive tissue of the lower extremities. Varicosities are present. NEUROLOGIC: No unilateral weakness or asterixis. LABORATORY DATA: Evaluation today shows white blood cell count is down to 17.3 from 21.8, hemoglobin 11.1, hematocrit 34.9, platelet count 428,000. Sodium 139, potassium 3.7, chloride 103, bicarb up to 33, BUN 31, creatinine 0.51, glucose 145. Arterial blood gas from yesterday at 0915 shows a pH of 7.49, pCO2 of 36, and PaO2 of 57. Echocardiogram ordered yesterday still not returned. IMAGING: Chest x-ray still pending from this morning. IMPRESSION: 1. Hypoxia, severe in nature, and high risk for re-intubation. Likely a combination of the severity of the pneumonia and the pulmonary edema. Although she aggressively diuresed yesterday, her BUN and creatinine have actually improved or decreased and therefore, we will continue to diurese. Her bicarb did increase and therefore, we need to be cautious. I have replaced potassium in anticipation that this will likely decline with additional diuretics. Echocardiogram is still pending. 2. Hypertension better controlled. Would appreciate cardiology input as they are following the patient as to any change in her antihypertensive regimen. I suspect she could increase her beta-ha some. 3. Pneumonia. Will continue antibiotics until the patient has had some additional improvement in the hypoxia and appearance of the chest x-ray. It is quite an extensive pneumonia and she runs the risk of developing a lung abscess. At this point in time, I would not transfer her outside the unit for imaging. 4. Obesity. Patient refusing CPAP at night. A CPAP may help to prevent further atelectasis and improve oxygenation; however, patient refused. 5. Protein malnourishment. Patient is currently eating and I expect this to improve over time. 6. Atrial fibrillation. No evidence of recurrence. 7. Deep vein thrombosis (DVT) prophylaxis on full dose Lovenox. 8. Gastrointestinal (GI) prophylaxis on Protonix. 9. Leukocytosis, slightly improved. I am going to consult hospitalist as I expect there will be a transition within the next few days, so that they can become familiar with the patient and her complexities, prior to being transferred to their service. ARELIS
--- NOTE | 2020-05-29 09:51 | CCN ---
DATE: 05/28/2020 CRITICAL CARE TIME: 1 hour and 12 minutes, this excludes all procedures. SUBJECTIVE: Patient states she is lonely, she wants to go home. She has no chest pain, no fever, or chills. She is short of breath with minimal movement. She has not been ambulating as of yet. I did place an order for her to get out of bed into a chair. She has no headache or change in vision. Had difficulty with AFib RVR overnight. Cardiology was consulted and amiodarone was added. This morning still remains tachycardic with a healthy blood pressure; therefore, I have increased her metoprolol. OBJECTIVE: VITAL SIGNS: Temperature 98.1, pulse 120, respiratory rate 18, blood pressure 161/84, oxygen saturation 96% on 40 liters and FiO2 of 0.7, which is down from 1.0 two days ago. Is and Os 2100 and 4395 out. GENERAL: Awake, alert, oriented, and anxious. HEENT: Sclerae clear, anicteric. Pupils equal and reactive to light. Mucous membranes are moist without lesions. NECK: Supple. No tracheal deviation or mass. LYMPH: No cervical, supraclavicular, or axillary adenopathy. CARDIAC: Tachycardic, S1, S2, irregularly irregular. JVP is difficult to discern. Lower extremity edema that is non-pitting is present. PULMONARY: Rales bibasilar without rhonchi or wheeze. No dullness to percussion. No accessory muscle. No retractions. No prolongation on expiratory phase. ABDOMEN: Obese, soft, nontender, and nondistended. No discernable hepatosplenomegaly. No masses or hernia. EXTREMITIES: As mentioned above, non-pitting edema. Large amount of tissue. No venous stasis changes except for some varicosities. No cyanosis or clubbing. MUSCULOSKELETAL: Muscle tone is fairly well-developed. No evidence of recent trauma or joint effusion. NEUROLOGIC: No unilateral weakness, tremor, or evidence of seizure activity. DIAGNOSTIC STUDIES: Echocardiogram report is still not available despite this being performed on Friday. Chest x-ray shows some improvement from 05/26. No significant improvement really from yesterday. LABORATORY DATA: White blood cell count is elevated at 21.9, hemoglobin 12.3, platelet count of 436,000. Sodium of 139, potassium 3.4, chloride 101, bicarb 32, BUN 25, creatinine 0.50, glucose 158, and phosphorus of 2.2. Magnesium level is pending. IMPRESSION: 1. Severe hypoxia related to community-acquired pneumonia and probable underlying pulmonary edema in addition. Surprisingly have been able to diurese over 6 liters in the past two days. There is minimal elevation of the bicarb without any significant renal impairment. Because of the severity of the hypoxia, we will continue diuresis. This may be the reason why she continues to have atrial fibrillation. 2. Community-acquired pneumonia. There has not been significant improvement in the infiltrate over a long period of time of being on ceftriaxone and azithromycin. There may be the possibility that this was a methicillin-resistant Staphylococcus aureus (MRSA) infection and not adequately treated with recurrent antibiotics. Therefore, I have added vancomycin today because of the persistent leukocytosis and the persistent infiltrates. I have discontinued azithromycin as the patient has been on this for 10 days. Also, azithromycin could contribute to arrhythmias. The patient remains on higher dose Lovenox. 3. Hypokalemia. Replaced p.o. 4. Hypophosphatemia. Also replaced p.o.. 5. Atrial fibrillation. I have increased metoprolol and discontinued azithromycin. We will closely monitor in the intensive care unit (ICU) for fluctuations in blood pressure and heart rate. 6. Leukocytosis. I have decreased prednisone. I have added vancomycin and added a procalcitonin level to see if we need to continue antibiotic use; however, infiltrates are persistent and patient remains persistently hypoxic. 7. Prolonged antibiotic course. Will add Bacid. 8. Significant diuresis of 6 liters. We will check a magnesium level this morning. 9. Deep vein thrombosis (DVT) prophylaxis with Lovenox. 10. Gastrointestinal (GI) prophylaxis with Protonix. 11. Immobilization. Will have the patient out of bed to chair today. Will order physical therapy for tomorrow. Will continue all efforts to continue conditioning. Critical care time as mentioned above. This excludes all procedures. [facility]
--- NOTE | 2020-05-29 09:53 | IPN ---
DATE: 05/29/2020 SUBJECTIVE: Mrs. Whyte went back into atrial fibrillation after she converted to sinus rhythm on , after administration of flecainide. Over the weekend, she was given several doses of amiodarone a total of 600 mg IV plus she got doses of digoxin and the dose of metoprolol was increased. Currently she is predominantly in rate controlled atrial fibrillation. Her respiratory status remains somewhat tenuous. She still requires a lot of oxygen even though, she does not appear short of breath at rest. OBJECTIVE: VITAL SIGNS: Last blood pressure was recorded at 128/67, heart rate has been mostly in the 80s when she is sleeping and into 120s and 130s with minimal activity. She is afebrile. Saturation is 88% to 94% on 50% FiO2 and 35 L/min by Vapotherm. GENERAL: She is alert, oriented, and appropriate. NECK: Her jugular venous pressure (JVP) does not appear overly elevated. LUNGS: Reasonably clear, especially considering the degree of abnormality on chest x-ray. ABDOMEN: Morbidly obese and soft. EXTREMITIES: Free of edema. LABORATORY DATA: CBC with WBC count 16.3, hemoglobin 11.3, hematocrit 35.5, platelet count 344,000. Basic metabolic panel sodium 141, potassium 3.7, BUN 25, creatinine 0.45, glucose 120, and albumin 1.8. IMAGING: Chest x-ray continues to reveal bilateral interstitial infiltrate that are very prominent. DIAGNOSTIC STUDIES: EKG from yesterday revealed atrial flutter with mildly tachycardic rate. ASSESSMENT AND PLAN: Mrs. Whyte is a 65-year-old female who has no prior cardiac history other than hypertension who presents with community-acquired pneumonia and severe bilateral interstitial infiltrates that went into atrial fibrillation. Even though she initially converted to sinus rhythm after administration of oral flecainide, she relapsed rapidly. I do not believe the flecainide is a good intermediate manager preparation for her and consequently, we will switch the treatment to amiodarone. I will give her oral 400 b.i.d. to start with. I am going to stay away from digoxin. She is anticoagulated currently with 100 of Lovenox twice a day. We can switch her to an oral anticoagulant, which probably would be easier to administer. MTDD
--- NOTE | 2020-05-29 09:56 | ECHO ---
DATE OF PROCEDURE: 05/26/2020 Age: 65 Gender: Female REFERRING PROVIDER: Rashi Crain D.O. PATIENT LOCATION: Room 3210. REASON FOR STUDY: Cardiac dysrhythmia. 2D MEASUREMENTS: IVS 1.4 cm LV 4.2 cm LVPW 1.4 cm LA 3.5 cm Aorta 3.7 cm IVC 1.6 cm DOPPLER MEASUREMENT Peak velocity across the aortic valve 1.6 m/s Peak velocity across the LVOT 1.2 m/s Peak gradient across the aortic valve 10 mmHg Mean gradient across the aortic valve 6 mmHg Mitral E 1.0 Mitral A 0.87 with a ratio of 1.1 Maximum tricuspid valve velocity 3.3 m/s 2D COMMENTS: 1. Normal left ventricular size with mildly increased left ventricular wall thickness. Left ventricular systolic function is normal, estimated at 60% to 65%. 2. Subjectively both the left atrium and the right atrium appear to be mildly enlarged. Normal right ventricle. 3. The atrial septum appeared to be normal without evidence of defect or shunt. 4. Normal aortic root. 5. No pericardial effusion seen. 6. Minimally calcified aortic valve with normal leaflet excursion. Minimally calcified mitral annulus with normal anterior mitral valve leaflet motion. Normal tricuspid valve. The pulmonic valve and proximal pulmonary artery branches were not well visualized. 7. The inferior vena cava was normal in size, central venous pressure is most likely normal. DOPPLER: No significant valvular abnormalities detected, but mild tricuspid regurgitation. The calculated pulmonary artery systolic pressure varies between 40 to 50 mmHg. Assessment of the left ventricular diastolic function appeared to be normal. IMPRESSION: 1. Normal global left ventricular systolic function with mild concentric left ventricular hypertrophy. Assessment of the left ventricular diastolic function appeared to be normal. 2. Aortic valve sclerosis with trivial aortic stenosis, but no aortic regurgitation. 3. Isolated mitral annular calcification. Subjectively, the left atrium appeared to be mildly enlarged. 4. Mild tricuspid regurgitation with probably moderate pulmonary hypertension. Subjectively, the right atrium is enlarged. MTDD
[2020-05-29] MEDS: MAG SULF 1GM/100ML (MAG RUN) 1 GM in IV 1 EA IV SCH ×3 (10:33→13:03)
[2020-05-29 11:45] VITALS: BP 110/72
--- NOTE | 2020-05-29 12:40 | IPNPDOC ---
Date Seen The patient was seen on 05/29/20. Progress Note SUBJECTIVE: Digoxin was given 05/28/20 and this AM patient was started on PO amiodarone BID by cardiology. She has improved further to saturating 94% on 50% Fio2. She admits to feeling lethargic this AM but denies chest pain, palpitations, fevers, chills. We will take over as primary for patient at this time. OBJECTIVE: PHYSICAL EXAMINATION: VS: Please see below I&Os: Intake 1680mL, Outtake 4325 mL with overall -2645 L/24 hours GENERAL: laying in bed, answering questions appropriately, Slightly lethargic HEENT: Left pupil defect, EOMI, moist mucous membranes, dentures, Vapotherm ca nnula in place with some blood around prongs NECK: Supple. No tracheal deviation. Supraclavicular central line CVS: S1S2 +, no M/R/G PULMONARY: Bilateral decreased breath sounds, crackles in the bases b/l posteriorly. No W/R/R GI: BS + in 4 quad, obese, soft, nontender, and nondistended. No organomegaly EXT: Lower ext edema bilaterally, nonpitting. Warm, pulses + INTEGUMENTARY: Pale without rashes, jaundice, or bruising. No cyanosis or clubbing. NEURO: CN 2-12 intact, AAOx 3, no focal deficits PSYCH: Mood and affect appropriate LABORATORY: Please see below MICROBIOLOGY: Sputum Cx 05/15/20: Yeast organism Resp Virus panel 05/15/20: NEg for COVID, other viruses Bronchial washings, brushings 05/17/20: NG Blood cultures x 2 sets 05/18/20: NG to date IMAGING: CXR 05/29/20: No significant change from prior examination. Continued multifocal infiltrates (right greater than left). CXR 05/28/20: Extensive chronic bilateral filtrates with underlying severe COPD and fibrosis, cardiomegaly and tortuous calcified aorta. There is no interval change. CXR 05/27/20: 1. Extensive chronic bilateral infiltrates with underlying severe COPD and fibrosis, cardiomegaly and tortuous calcified aorta. 2. There is some mild improvement only in the upper lobes compared to yesterday's study. No other changes. ASSESSMENT: 65 y/o F with PMH of HTN, obesity, macular degeneration admitted for acute hypoxic respiratory failure 2/2 to community acquired PNA, recently extubated on 05/24/20 and remains in guarded condition in ICU. IMPRESSION: # Acute hypoxic respiratory failure 2/2 to community acquired PNA, pulmonary edema. Cannot r/o acute interstitial PNA, Obesity hypoventilation syndrome as contributing factors to hypoxia as well -Has had bronchoscopy on 05/17/20, remained ventilated and later extubated successfully on 05/24/20 -Saturating 94% on now 50 % FiO2 Vapotherm, improving nicely -Net neg fluid status -Repeat CXR above -Micro above -Vancomycin added 05/29/20 and WBC improved to 16.3 from 21.9. Difficult to say if leukocytosis is 2/2 steroid induced leukocytosis vs. infection. Remains afebrile. -Added Vancomycin (Day2) ,Ceftriaxone (Day 14), Azithromycin (Day 10), PO prednisone, Duoneb ATC, lasix daily. -Completed Fluconazole for 10 days (stopped 05/29/20) -C/w acapella Q2 H while awake -Patient refusing CPAP per pulmonary notes -Monitor I&O's closely, daily wt, daily labs -High risk for reintubation # Atrial fibrillation with RVR, new this admission -S/p digoxin, four amiodarone boluses -Cardiology helping to manage, Dr. Lee/Dr. Hartley -Echocardiogram done, awaiting transcribed report -Adding amiodarone 400 mg PO BID today. -C/w xarelto, CCB and BB BID. -Tele # HTN -C/w CCB, lasix, BB # Obesity -Complicates care -BMI 59.2 -Optimize nutrition #Protein malnutrition -Low albumin -Appreciate full nutrition assessment # GI px -PPI #DVT px -D/melo lovenox and switched to xarelto daily DISPOSITION: Currently patient remains in ICU being watched closely. Making slow improvements. Hospitalists now primary team, Critical care and Cardiology following closely. VS, I&O, 24H, Fishbone Vital Signs/I&O Vital Signs Date Time Temp Pulse Resp B/P (MAP) Pulse Ox O2 Delivery O2 Flow Rate FiO2 05/29/20 09:02 93 HVNI-Vapotherm 35.0 50 05/29/20 08:36 107 135/74 05/29/20 07:39 96.7 18 I&O- Last 24 Hours up to 6 AM 05/29/20 06:00 Intake Total 1380 ml Output Total 4430 ml Balance -3050 ml Laboratory Data 24H LABS Laboratory Tests 2 05/28/20 12:40: Bedside Glucose (Misc Panel) 133H 05/28/20 17:41: Bedside Glucose (Misc Panel) 162H 05/28/20 18:15: Methicillin-Resist S.aureus DNA PCR NOT DETECTED 05/28/20 20:11: Bedside Glucose (Misc Panel) 108 05/29/20 04:08: Nucleated Red Blood Cells % (auto) 0.0, Anion Gap 5L, Glomerular Filtration Rate > 60.0, Calcium Level 7.7L, Total Bilirubin 0.8#, Aspartate Amino Transf (AST/SGOT) 18, Alanine Aminotransferase (ALT/SGPT) 25, Alkaline Phosphatase 137H, Total Protein 4.8L, Albumin 1.8L, Albumin/Globulin Ratio 0.6L CBC/BMP Laboratory Tests 05/29/20 04:08 Current Medications Current Medications Medications (Trade) Dose Ordered Sig/Patria Route PRN Reason Start Time Stop Time Status Last Admin Dose Admin Acetaminophen (Tylenol Suppository) 650 mg Q4HP PRN [place] PAIN / FEVER 05/15/20 13:45 05/16/20 19:52 DC 05/15/20 20:22 Acetaminophen (Tylenol Suspension) 650 mg Q4HP PRN [place] PAIN OR FEVER 05/16/20 20:00 05/20/20 21:13 Albuterol/ Ipratropium (Duoneb (Ipr 0.5mg/Alb 2.5mg)) 3 ml RQID NEB 05/15/20 16:00 05/28/20 11:48 DC 05/28/20 08:50 Amiodarone HCl (Pacerone, Cordarone) 400 mg BID PO 05/29/20 09:00 05/29/20 08:37 Amiodarone HCl 150 mg/IV Miscellaneous Supplies 100 ml @ 600 mls/hr STAT STAT IV 05/27/20 15:36 05/27/20 15:45 DC 05/27/20 16:01 Amiodarone HCl 150 mg/IV Miscellaneous Supplies 100 ml @ 600 mls/hr STAT STAT IV 05/27/20 17:14 05/27/20 17:23 DC 05/27/20 17:28 Amiodarone HCl 150 mg/IV Miscellaneous Supplies 100 ml @ 600 mls/hr STAT STAT IV 05/27/20 22:05 05/27/20 22:14 DC 05/27/20 22:23 Amiodarone HCl 150 mg/IV Miscellaneous Supplies 100 ml @ 600 mls/hr STAT STAT IV 05/28/20 03:44 05/28/20 03:53 DC 05/28/20 04:08 Amlodipine Besylate (Norvasc) 10 mg DAILY PO 05/26/20 09:00 05/28/20 08:16 DC 05/27/20 08:30 Amlodipine Besylate (Norvasc) 10 mg DAILY PO 05/28/20 09:00 05/29/20 08:36 Azithromycin 500 mg/IV Miscellaneous Supplies 1 each/ Dextrose 255 ml @ 255 mls/hr Q24H IV 05/19/20 10:00 05/28/20 08:12 DC 05/27/20 08:30 Bisacodyl (Dulcolax Suppository) 10 mg DAILYPRN PRN [place] CONSTIPATION 05/19/20 09:30 05/22/20 09:57 Ceftriaxone Sodium 1 gm/ Dextrose 50 ml @ 100 mls/hr Q12H IV 05/15/20 15:00 05/29/20 02:41 Chlorhexidine Gluconate (Peridex Oral Rinse) SWAB/BRUSH ORAL CAVITY BID MT 05/15/20 21:00 05/24/20 08:55 DC 05/23/20 21:53 Dextrose (Dextrose 50%) 25 ml ASDIRECTED PRN IV SEE LABEL COMMENTS 05/15/20 14:30 Dextrose/Sodium Chloride 1,000 ml @ 80 mls/hr [id number] IV 05/15/20 18:00 05/22/20 08:54 DC 05/21/20 23:33 Digoxin (Lanoxin) 0.25 mg STAT STAT IV 05/25/20 00:19 05/25/20 00:21 DC 05/25/20 00:41 Digoxin (Lanoxin) 0.25 mg STAT STAT IV 05/28/20 10:29 05/28/20 10:31 DC 05/28/20 10:38 Digoxin (Lanoxin) 0.25 mg STAT STAT IV 05/28/20 15:33 05/28/20 15:41 DC 05/28/20 15:46 Enoxaparin Sodium (Lovenox) 100 mg Q12H SC 05/25/20 09:00 05/29/20 08:35 Fluconazole 100 mg/IV Miscellaneous Supplies 50 ml @ 50 mls/hr Q24H IV 05/19/20 11:00 05/29/20 09:46 DC 05/28/20 11:13 Furosemide (LASIX injection) 40 mg DAILY IV 05/26/20 09:00 05/29/20 08:35 Glucagon (Glucagon) 1 mg ASDIRECTED PRN SC SEE LABEL COMMENTS 05/15/20 14:30 Glucose (Glucose) 16 GM ASDIRECTED PRN PO SEE LABEL COMMENTS 05/15/20 14:30 Heparin Sodium (Heparin (Flush)) 200 units ASDIRECTED PRN IV SEE LABEL COMMENTS 05/17/20 18:15 05/24/20 00:36 Heparin Sodium (Heparin (Flush)) 200 units PICC IV 05/18/20 06:00 05/29/20 05:55 Heparin Sodium (Porcine) (Heparin) 5,000 units Q8H SC 05/15/20 22:00 05/25/20 08:09 DC 05/25/20 05:35 Home Med (Med Rec Complete!) ASDIRECTED XX 05/15/20 14:30 05/15/20 14:24 DC Hydralazine HCl (Apresoline) 12.5 mg Q4HP PRN IV HTN 05/26/20 04:15 05/26/20 04:32 Insulin Human Lispro (HumaLOG INSULIN) SEE PROTOCOL TABLE Q6H SC 05/15/20 18:00 05/25/20 06:26 DC 05/25/20 05:35 Insulin Human Lispro (HumaLOG INSULIN) See Protocol Table AC SC 05/25/20 07:30 05/28/20 17:56 Insulin Human Lispro (HumaLOG INSULIN) See Protocol Table QHS SC 05/25/20 21:00 Lactobacillus Acidophilus (Bacid) 1 ea WM PO 05/28/20 08:00 05/29/20 08:37 Levalbuterol HCl (Xopenex Neb) 0.63 mg RTID INH 05/28/20 14:00 05/29/20 09:01 Magnesium Sulfate/ Dextrose 1 gm/IV Miscellaneous Supplies 100 ml @ 100 mls/hr Q1H IV 05/29/20 10:00 05/29/20 11:59 DC 05/29/20 10:33 Methylprednisolone (SOLU medrol) 40 mg Q12H IV 05/25/20 18:00 05/27/20 08:48 DC 05/27/20 05:50 Methylprednisolone (SOLU medrol) 40 mg Q8H IV 05/24/20 22:00 05/25/20 09:26 DC 05/25/20 05:36 Methylprednisolone (SOLUmedrol) 40 mg Q8H IV 05/23/20 14:00 05/24/20 20:55 DC 05/24/20 13:56 Methylprednisolone (SOLUmedrol) 80 mg Q8H IV 05/18/20 14:00 05/23/20 09:03 DC 05/23/20 06:13 Metoclopramide HCl (REGLAN INJection) 10 mg Q6H IV 05/20/20 22:00 05/24/20 08:55 DC 05/24/20 03:47 Metoprolol Tartrate (Lopressor) 2.5 mg STAT STAT IV 05/27/20 18:28 05/27/20 18:29 DC 05/27/20 18:33 Metoprolol Tartrate (Lopressor) 5 mg STAT STAT IV 05/27/20 15:13 05/27/20 15:15 DC 05/27/20 15:24 Metoprolol Tartrate (Lopressor) 5 mg STAT STAT IV 05/27/20 17:14 05/27/20 17:16 DC 05/27/20 17:23 Metoprolol Tartrate (Lopressor) 5 mg STAT STAT IV 05/28/20 03:44 05/28/20 03:46 DC 05/28/20 04:09 Metoprolol Tartrate (Lopressor) 50 mg BID PO 05/24/20 17:00 05/28/20 08:13 DC 05/27/20 19:49 Metoprolol Tartrate (Lopressor) 50 mg BID PO 05/24/20 21:00 05/24/20 16:53 DC Metoprolol Tartrate (Lopressor) 100 mg BID PO 05/28/20 09:00 05/29/20 08:36 Midazolam HCl (Versed) 2 mg Q15MP PRN IV AGITATION 05/15/20 13:15 05/24/20 08:55 DC 05/24/20 03:48 Midazolam HCl 100 mg/Dextrose 100 ml @ 4 mls/hr Q24H IV 05/18/20 05:00 05/23/20 12:17 DC 05/21/20 19:11 Miscellaneous (Unresolved Clarification Entry) SEE LABEL COMMENTS DAILY XX 05/20/20 09:00 05/20/20 10:52 DC Miscellaneous (Unresolved Clarification Entry) SEE LABEL COMMENTS DAILY XX 05/21/20 09:00 05/22/20 07:21 DC Miscellaneous (Unresolved Clarification Entry) SEE LABEL COMMENTS DAILY XX 05/23/20 09:00 05/23/20 12:53 DC Morphine Sulfate (Morphine Sulfate Inj) 2 mg Q15M PRN IV SEVERE PAIN (PS 8-10) 05/15/20 14:15 05/24/20 08:55 DC 05/24/20 03:48 Non-Formulary Medication (Refrigerator Santacruz) Q1M PRN XX SEE LABEL COMMENTS 05/18/20 04:15 05/23/20 12:17 DC Pantoprazole Sodium (Protonix) 40 mg DAILY PO 05/25/20 09:00 05/29/20 08:37 Pantoprazole Sodium (Protonix) 40 mg DAILY@2100 IV 05/15/20 21:00 05/25/20 08:44 DC 05/24/20 21:29 Potassium Chloride (K-Audrey 20 Meq Powder Packet) 40 meq DAILY PO 05/29/20 09:00 05/29/20 10:38 Potassium Phos/ Sodium Phos (K-Phos Neutral) 250 mg TID PO 05/28/20 09:00 05/29/20 08:36 Prednisone (Deltasone) 20 mg DAILY PO 05/27/20 09:00 05/28/20 08:34 DC 05/27/20 09:34 Propofol 1000 mg/ IV Miscellaneous Supplies 100 ml @ 7.968 mls/ hr [id number] IV 05/15/20 16:30 05/19/20 09:28 DC 05/18/20 06:16 Sodium Chloride (Saline Lock Flush) 10 ml ASDIRECTED PRN IV SEE LABEL COMMENTS 05/17/20 18:15 05/24/20 00:36 Sodium Chloride (Saline Lock Flush) 10 ml PICC IV 05/18/20 06:00 05/29/20 05:55 Vancomycin HCl 1000 mg/IV Miscellaneous Supplies 1 each/ Dextrose 270 ml @ 270 mls/hr Q8H IV 05/28/20 14:00 05/29/20 05:46 Allergies Coded Allergies: No Known Allergies (Unverified , 05/15/20) PER [facility] Karly Joseph MD May 29, 2020 12:40
--- NOTE | 2020-05-29 14:17 | CCN ---
DATE: 05/29/2020 Dictated by Carito Flanagan MD in conjunction with supervising physician, Rashi Crain D.O. CRITICAL CARE TIME: 1 hour 40 minutes excluding all procedures. SUBJECTIVE: Ms. Wyhte is a 65-year-old female with acute respiratory failure secondary to community-acquired pneumonia, status post endotracheal intubation for nine days, extubated on , being managed on Vapotherm high-flow oxygen at an oxygen flow rate of 35 with an FiO2 of 50. The patient has had atrial fibrillation with rapid ventricular response (RVR) since the last two days and persists as of today. No overnight events reported by the nurse. OBJECTIVE: GENERAL: Patient looks comfortable lying in her bed, under no acute distress, and not using any accessory muscles of respiration. She is in good spirits. According to the patient, she had palpitations last night, but currently denies any chest pain, chills, nausea, vomiting, or diarrhea. INTAKE/OUTPUT: Patient is in a negative fluid balance of 2.64 L. VITAL SIGNS: Show a maximum temperature of 97.8 degrees Fahrenheit. Her heart rate is staying in the 80s to 100s, currently it is 88. Respiratory rate is 18. She is saturating 94% on high-flow nasal oxygen Vapotherm at a setting of 35 oxygen flow rate and an FiO2 of 50. HEENT: Atraumatic, normocephalic. EOMI. Moist mucous membranes. She does use dentures. Vapotherm cannula is in place. NECK: Supple with no tracheal deviation. She has a supraclavicular PICC in place. CARDIOVASCULAR: Regular S1, S2 heard. No murmurs, rubs, or gallops heard. PULMONARY: Decreased bilateral breath sounds. Crackles heard diffusely especially on the bases. No wheezing or rhonchi. GASTROINTESTINAL: Obese abdomen, nontender, nondistended, and soft. No organomegaly palpated. Bowel sounds are normal. EXTREMITIES: I can see lower extremity bilateral non-pitting edema. The extremities are warm and well-perfused with good volume and pulses. INTEGUMENTARY: She is pale without any rashes or bruising. There is no cyanosis or clubbing. NEUROLOGIC: She is alert and oriented to time, place, and person with appropriate affect, good mood. Her Cranial nerves II-XII are intact. Good motor strength 5/5 and sensations are intact. LABORATORY DATA: Her labs for today show leukocytosis of 16.3, which came down from 21.9, hemoglobin of 11.3 came down from 12.3, sodium was 141, potassium of 3.7, blood glucose of 120, calcium of 7.7, and magnesium of 1.6 as of yesterday. Albumin 1.8, LDH 429, and alkaline phosphatase 139. On microbiology, her blood cultures were negative. Bronchial washings were negative with the exception of some yeast-like organisms. MRSA was not detected. IMAGING: On imaging this morning, her chest x-ray does not look any different from the previous x-ray. We see continued multifactorial infiltrates, right greater than left. ASSESSMENT AND PLAN: The patient is a 65-year-old female with a past pertinent medical history of hypertension, admitted for acute respiratory failure secondary to community-acquired pneumonia or pulmonary edema. 1. Severe acute hypoxia The patient was status post endotracheal intubation later extubated successfully on 05/24, right now saturating at 94% on a high-flow nasal oxygen system Vapotherm at an oxygen flow rate of 35 liters and an FiO2 of 50. The patient continues to be on ceftriaxone day 14. Her azithromycin was discontinued. Today we will be discontinuing her Diflucan because of conduction issues. She continues to stay on levalbuterol DuoNeb. Her white count has decreased from 21.9 to 16.3 as of today. She is in a negative fluid balance. She is getting Lasix daily 40 mg intravenous (IV). Good pulmonary toilet maintained by Acapella every two hours while awake. Continue to monitor vitals, intake and output (Is and Os), weights, and labs. Still remains at a high risk for intubation. 2. New onset atrial fibrillation with rapid ventricular response (RVR). Status post four amiodarone boluses. She was given digoxin 0.25 mg as well. For rate control, she is on metoprolol 5 mg. Continues to remain in atrial fibrillation as of now with normal vitals. Cardiology was consulted and Dr. Hartley is managing the patient. Echocardiogram was done and results are pending. Patients Diflucan was discontinued today because of high risk of conduction defects. 3. Hypertension, stable on her home medications. Her blood pressure this morning was 126/76. Continue Norvasc and Lasix as of today. Continue to monitor Is and Os and weight. 4. Hypokalemia. We ordered potassium chloride 40 mEq p.o. once. Patient continues to stay on Lasix. We will reassess that tomorrow. 5. Hypomagnesemia. The patients magnesium as per yesterdays lab work was 1.6. We ordered a mag run of 2 grams for today. 6. Protein malnutrition. Her albumin is 1.8. Optimize nutrition. 7. Leukocytosis. Her WBCs this morning are 16.3 gone down from 21.9 as of yesterday. Likely due to high doses of steroids. Continue to monitor by daily labs. 8. Obesity. This complicates care. Her body mass index (BMI) is 59.2. Optimize nutrition. 9. Deep vein thrombosis (DVT) prophylaxis. The patient is on Lovenox. 10. Gastrointestinal (GI) prophylaxis. The patient is on Protonix 40 mg b.i.d. 11. Patient continues to stay on a sliding scale insulin maintaining fasting glucose levels of 120s to 130s. 12. Deconditioning. The patient was able to sit at the edge of the bed for three to four minutes before she felt the need to lay down again. Physical therapy was consulted for evaluation and treatment. Appreciate their recommendations. Disposition: The patient is still unstable and is at a high risk for intubation. We will continue to assess. Needs to stay in the intensive care unit (ICU) as of now. I, Rashi Crain, Agree with the assessment and plan as outlined above after my independent review and physical. ARELIS
--- NOTE | 2020-05-29 14:21 | CCN ---
DATE: 05/29/2020 This is an addendum to the note already dictated by the medical administrative specialist, Dr. Carito Flanagan - report #[id number]. I attended the patient at bedside during morning rounds. The patients oxygen requirements have decreased. She is now off steroids. White blood cell count down to 6.3 after initiating Vancomycin. Remains fairly immobile despite encouragement, severe protein malnourishment. Imaging as outlined below shows no significant improvement but some improvement since Friday but no improvement over the past few days. She is short of breath with minimal movement, continues to have difficulty with atrial fibrillation with RVR. Cardiology consulted in consistently adjusting medications to assist in heart rate control. Overall the patient just states she is anxious to get home. I conducted an independent history and physical and agree with what has been dictated by the resident. The patient's main concern is the severity of her hypoxia in the face of pneumonia and probable underlying pulmonary edema with atrial fibrillation with RVR. Remains in critical condition requiring ICU status at this point in time. We will continue to follow. ARELIS
--- NOTE | 2020-05-29 14:54 | IPN ---
DATE: 05/28/2020 SUBJECTIVE: The patient was initially seen on 05/25/[address] Hartley because of atrial fibrillation. She spontaneously cardioverted to a normal sinus rhythm. She has been in the unit since 05/15/2020, admitted with respiratory failure and bilateral pneumonia. Friday in the evening and Friday morning, she was in normal sinus rhythm; but late Friday, she went into atrial fibrillation with rapid ventricular rate. She was treated with IV Lopressor in addition to the IV beta ha, metoprolol titrate she has been taking and IV amiodarone. She minimally responded, but her heart rate remained between 100 and 120 beats per minute. This morning she was given IV digoxin and late morning when I saw her, her heart rate was about 100 while at bedside. Her , as well as nurse, also were at bedside. She denies any complaint of chest pain and there is no orthopnea or paroxysmal nocturnal dyspnea (PND). She does feel when her heart rate was fast and occasional chest discomfort when it goes around 130 and 140 beats per minute. She denies dizziness, syncope or near syncope. There is no report of bleeding. There is no focal manifestation. Earlier this morning, her beta ha/metoprolol titrate was increased up to 100 mg twice a day by mouth by Dr. Crain. PHYSICAL EXAMINATION: The patient is alert, oriented in no acute distress and her vital signs when I saw her revealed a blood pressure of 138/74 with a pulse of about 100-105 beats per minute. When I was at bedside, respirations 20 and a maximum temperature was 98 degrees Fahrenheit and oxygen saturation 93% on FiO2 of 0.8 with oxygen flow of 40.0. In the last two days, she has been in a negative fluid balance for a total of 7 liters, 7.4 liters on 05/26/2020 and 2.2 liters on 05/27/2020. Examination of the head: Atraumatic. Neck: Supple and no jugular venous distention (JVD) appreciated. She was sitting up in her room. Lungs revealed minimal crackles at the bases, but no wheezing. The heart examination revealed irregular heart sounds without gallops. The PMI is not displaced. There is no rub. I could not appreciate any murmurs. Abdomen is soft. Extremities revealed bilateral bipedal edema. Neurological examination: Grossly negative for focal deficit. LABORATORY DATA: Complete blood count (CBC) done today revealed a WBC of 21.9 with hemoglobin of 12.3, hematocrit 37.6 and platelets 436,000. On 05/27/2020, WBC was 17.3. Basic metabolic panel (BMP) done today revealed a sodium of 139, potassium 3.4, chloride 101, Co2 32, BUN 25, creatinine 0.5, glomerular filtration rate (GFR) more than 60, fasting glucose 158, calcium 8.0. Magnesium is 1.6. Liver enzymes revealed a total bilirubin of 0.4, AST 15, ALT 26, alkaline phosphatase is 157. Total protein 5.7. Albumin 1.9. Echocardiogram was done on 05/26/2020 and it revealed a normal global left ventricular systolic function. Official report is pending. IMPRESSION: 1. Atrial fibrillation, paroxysmal in nature and difficulty to control her heart rate at this present time, probably related underlying lung disease and some degree of congestive heart failure due to left ventricular diastolic dysfunction. She was given IV Lasix earlier today 40 mg and it seems that her heart rate has improved. She also received a higher dose of the metoprolol titrate and she was given IV digoxin one dose of 0.25 mg IV. We will continue with current management and digoxin will be given as needed. Would stay away at this present time from the amiodarone. She is on Lovenox for prevention of thromboembolic events and she denies any bleeding. 2. Community acquired pneumonia, associated with severe hypoxemia and this is being addressed. She is being monitored by pulmonary. 3. History of hypertension under control. We will decrease the Norvasc in view of the higher dose of the metoprolol titrate. Will continue to monitor the blood pressure with you. 4. Obesity. 5. Status post respiratory failure related to underlying pneumonia. It was a pleasure to participate in the care of Ms. Katrin Lau for her underlying cardiac condition. I will continue to monitor along with you and Dr. Hartley will be seeing her tomorrow, 05/29/2020. ARELIS
[2020-05-29 16:10] VITALS: BP 131/66
[2020-05-29] MEDS: RIVAROXABAN 20 MG TAB (XARELTO) PO SCH (18:11)
[2020-05-29 20:19] VITALS: BP 108/66
[2020-05-30] VITALS: BP 118/63
[2020-05-30] MEDS: cefTRIAXone SOD 1 GM in D5W MINI-BAG PLUS 50 ML IV SCH (03:59)
[2020-05-30 04:00] VITALS: BP 114/55
[2020-05-30 05:02] LABS: HEMATOCRIT 29.5 % (36.0-47.0); HEMOGLOBIN 9.4 g/dl (12.0-15.5); MEAN CORPUSCULAR HGB CONC 31.9 g/dl (32.0-36.5); MEAN CORPUSCULAR VOLUME 87.8 fl (80.0-96.0); PLATELET COUNT, AUTOMATED 311 10^3/uL (150-450); RED BLOOD COUNT 3.36 10^6/uL (4.00-5.40); WHITE BLOOD COUNT 15.9 10^3/uL (4.0-10.0)
[2020-05-30 05:20] LABS: BLOOD UREA NITROGEN 22 MG/DL (7-18); CALCIUM LEVEL 7.7 MG/DL (8.8-10.2); CARBON DIOXIDE LEVEL 35 MEQ/L (21-32); CHLORIDE LEVEL 100 MEQ/L (98-107); CREATININE FOR GFR 0.46 MG/DL (0.55-1.30); GLOMERULAR FILTRATION RATE > 60.0 (>45); GLUCOSE, FASTING 136 MG/DL (70-100); POTASSIUM SERUM 3.3 MEQ/L (3.5-5.1); SODIUM LEVEL 141 MEQ/L (136-145)
[2020-05-30 05:21] LABS: ALBUMIN 1.8 GM/DL (3.2-5.2); ALT/SGPT 30 U/L (12-78); BILIRUBIN,TOTAL 0.7 MG/DL (0.2-1.0); MAGNESIUM LEVEL 1.8 MG/DL (1.8-2.4); TOTAL PROTEIN 4.5 GM/DL (6.4-8.2)
[2020-05-30] MEDS: SODIUM CHLORIDE 0.9% INJ 10 ML SYR IV SCH ×2 (06:10→18:36)
[2020-05-30] MEDS: VANCOMYCIN HCL 1,000 MG, VIAL MATE ADAPTER 1 EACH in D5W 250 ML IV SCH (06:11)
[2020-05-30] MEDS: LEVALBUTEROL 1.25 MG/0.5 ML CONCENTRATE NEB INH SCH ×3 (07:45→20:01)
[2020-05-30 08:01] VITALS: BP 105/53
[2020-05-30] MEDS: AMIODARONE 200 MG TAB (PACERONE) PO SCH ×2 (09:11→20:41)
[2020-05-30] MEDS: PANTOPRAZOLE 40MG TAB (PROTONIX) PO SCH (09:11)
[2020-05-30] MEDS: LACTOBACILLUS ACIDOPHILUS CAP (BACID) PO SCH ×3 (09:11→18:37)
[2020-05-30] MEDS: K-PHOS NEUTRAL 250MG TABLET (SOD.PHOSPHATE/POT.PHOSPHATE) PO SCH ×3 (09:11→21:15)
[2020-05-30] MEDS: METOPROLOL TARTRATE 100 MG TAB PO SCH ×2 (09:11→20:41)
[2020-05-30] MEDS: HumaLOG INSULIN (NovoLOG) PER UNIT SC SCH ×4 (09:14→20:41)
[2020-05-30] MEDS ORDERED: POTASSIUM CHL PWD 20 MEQ PACKET PO SCH (09:15)
--- NOTE | 2020-05-30 09:20 | IPN ---
DATE: 05/30/2020 I have not seen Mrs. Whyte this morning. She was still sleeping at the time of my rounds, but I reviewed her telemetry tracing and I spoke with nursing staff. I am seeing her for persistent atrial fibrillation. We started her on oral amiodarone yesterday. She continues to be in atrial fibrillation with reasonable rate control and the average heart rate throughout the day is approximately 80- 90 beats per minute. She gets tachycardic when she moves into 120s. No bradycardia. No pauses. No ventricular tachycardia. Otherwise, her blood pressure is well controlled 114/55 this morning. Saturation though is still low. She is 94% on 30 liters per minute of flow rate with 60% FiO2. Her fluid balance yesterday was approximately 2 liters negative, it was recorded almost 3400 of output. Weight is 133 kg, which actually is a considerable drop since her peak weight 144, but it is similar to her admission weight. Otherwise, her laboratories her CBC reveals a mild drop in hemoglobin to 9.4, platelet count 311,000, WBC count 15.9, and her basic metabolic panel is normal with the exception of hypokalemia 3.3. Her echocardiogram revealed preserved left ventricular systolic function. She has no significant valvular disease and approximately moderate pulmonary hypertension. Mrs. Whyte is a 65-year-old female who is morbidly obese and has a history of hypertension, but no other cardiac history, who presented with community- acquired pneumonia with severe respiratory failure and extensive bilateral pulmonary infiltrates. After several days spent on the ventilator, she was successfully extubated, but still requires a lot of supplemental oxygen. As far as the atrial fibrillation is concerned, it is not surprising in the current setting. She initially converted to sinus rhythm after she received oral flecainide, but then was in atrial fibrillation afterwards and was started on amiodarone by Dr. Lee over the weekend. Because she already received a considerable dose, I was not comfortable giving her back the flecainide and maintained oral amiodarone currently 400 mg twice a day. I recommend to continue current dose for one week after which, I recommend to reduce the dose to just 200 mg daily. I do believe that it is likely that she will ultimately convert to sinus rhythm. Simultaneously, it is very likely that her heart rate will continue slowly dropping down as the amiodarone exerts more power over time. Consequently, it will be necessary to monitor the patient on telemetry and gradually reduce the dose of metoprolol; it is not time to start doing that yet though. Eventually, hopefully, she will fully recover from her current illness even though it is likely going to take a long time, and I would generally recommend to continue amiodarone for approximately three months after discharge. Obviously, she should remain on anticoagulation for the foreseeable future unless there are some bleeding problems. Please contact me again if further assistance is desired. Otherwise, I am going to sign off her care. ARELIS
[2020-05-30] MEDS ORDERED: POTASSIUM CHL PWD 20 MEQ PACKET PO ONE (09:30)
[2020-05-30] MEDS: amLODIPine 10 MG TAB PO SCH (10:03)
[2020-05-30 12:00] VITALS: BP 107/61
--- NOTE | 2020-05-30 13:25 | CCN ---
DATE: 05/30/2020 Addendum to the note already dictated by Dr. Carito Flanagan. I agree with the assessment and plan as outlined above after my independent examination. At this point in time, we are pausing Lasix for a Lasix holiday given the elevated bicarb level and the aggressive diuresis that has occurred over the past three days. Procalcitonin is low so we are discontinuing antibiotics. This was communicated to the primary hospitalist. ARELIS
--- NOTE | 2020-05-30 14:01 | IPNPDOC ---
Date Seen The patient was seen on 05/30/20. Progress Note SUBJECTIVE: patient was seen and examined at bedside this morning. states had palpitations overnight. HR 90s, flutter on monitor. Denies active SOB, chest pain at this time. She is receiving O2 supplementation via VapoTherm at 30 LPM and FiO2 50%, and saturating to 97%. OBJECTIVE PHYSICAL EXAMINATION: VITAL SIGNS: please see below General: NAD, comfortable HEENT: PERRLA, EOMI, sclerae clear Neck: supple, normal ROM, no JVD Respiratory: Bilateral decreased breath sounds, noted bilateral crackles at bases CVS: RRR, normal S1, S2, no murmurs Abdo: soft, no masses, no hepatosplenomegaly, BS+, no rebound tenderness Extremities: Bilateral lower extremity nonpitting edema, extremities are no ncyanotic, pulses plus MSK: no joint deformities, normal ROM Neuro: no focal neuro deficits, moving all 4 extremities, CN2-12 intact. Strength 5/5 in all 4 extremities. No nystagmus. Psych: calm, cooperative, AAO x 3 LABORATORY DATA, IMAGING STUDIES, MICROBIOLOGY: Please see below. Echocardiogram (05/26/20): 1. Normal global left ventricular systolic function with mild concentric left ventricular hypertrophy. Assessment of the left ventricular diastolic function appeared to be normal. 2. Aortic valve sclerosis with trivial aortic stenosis, but no aortic regurgitation. 3. Isolated mitral annular calcification. Subjectively, the left atrium appeared to be mildly enlarged. 4. Mild tricuspid regurgitation with probably moderate pulmonary hypertension. Subjectively, the right atrium is enlarged. DVT prophylaxis ordered?: Y, on xarelto ASSESSMENT AND PLAN: 65 y/o F with PMH of HTN, obesity, macular degeneration admitted for acute hypoxic respiratory failure 2/2 to community acquired PNA, recently extubated on 05/24/20, showing improvement in oxygen requirement. Downgraded to PCU 05/30/20. PROBLEMS: # Acute hypoxic respiratory failure 2/2 to community acquired PNA, pulmonary sean alfred. Cannot r/o acute interstitial PNA, Obesity hypoventilation syndrome as contributing factors to hypoxia -s/p bronch 05/17/20, remained ventilated and later extubated successfully on 05/24/20 -Saturating 97% on now 50 % FiO2 Vapotherm, improving -approx 2L net neg fluid balance -Vancomycin added 05/29/20 and WBC improved to 16.3 from 21.9. Difficult to say if leukocytosis is 2/2 steroid induced leukocytosis vs. infection. Remains afebrile. -Added Vancomycin (Day2) ,Ceftriaxone (Day 14), Azithromycin (Day 10), PO prednisone, Duoneb ATC, lasix daily. -Completed Fluconazole for 10 days (stopped 05/29/20) - completed 14 days of ceftriaxone, 10 days azithromycin. Vanco [address] Crain, stopped abx on 05/30 as procalcitonin normalized. -C/w acapella Q2 H while awake -Patient refusing CPAP per pulmonary notes -Monitor I&O's closely, daily wt, daily labs - D/w Dr. Crain, ok for downgrade to PCU. # Atrial fibrillation with RVR, new this admission -S/p digoxin, four amiodarone boluses -Cardiology helping to manage, Dr. Hartley note from 05/30/20 reviewe. -2D echo as above. - per Dr. Hartley, amiodarone 400 mg bid for 1 week (through 06/05), with plan to reduce to 200 mg daily (plan to continue amiodarone for approx 3 months). Consider reducing dose of metoprolol in time, but not now. -C/w xarelto, CCB and BB BID. -Tele # HTN -C/w CCB, lasix, BB # Obesity -Complicates care -BMI 59.2 -Optimize nutrition #Protein malnutrition -Low albumin -Appreciate full nutrition assessment # GI px -PPI #DVT px -D/melo lovenox and switched to xarelto daily DISPOSITION: Patient downgraded to PCU. Continue vapotherm. Making slow improvements. Hospitalists now primary team, Critical care and Cardiology signed off. VS, I&O, 24H, Fishbone Vital Signs/I&O Vital Signs Date Time Temp Pulse Resp B/P (MAP) Pulse Ox O2 Delivery O2 Flow Rate FiO2 05/30/20 09:11 92 100/55 05/30/20 08:01 96.8 20 92 HVNI-Vapotherm 30.0 50 I&O- Last 24 Hours up to 6 AM 05/30/20 06:00 Intake Total 1510 ml Output Total 2270 ml Balance -760 ml Laboratory Data 24H LABS Laboratory Tests 2 05/29/20 16:46: Bedside Glucose (Misc Panel) 148H 05/29/20 20:12: Bedside Glucose (Misc Panel) 162H 05/29/20 21:15: Vancomycin Level Trough 19.1 05/30/20 04:39: Nucleated Red Blood Cells % (auto) 0.0, Anion Gap 6L, Glomerular Filtration Rate > 60.0, Calcium Level 7.7L, Magnesium Level 1.8, Total Bilirubin 0.7, Aspartate Amino Transf (AST/SGOT) 24, Alanine Aminotransferase (ALT/SGPT) 30, Alkaline Phosphatase 113, Total Protein 4.5L, Albumin 1.8L, Albumin/Globulin Ratio 0.7L 05/30/20 12:10: Bedside Glucose (Misc Panel) 150H CBC/BMP Laboratory Tests 05/30/20 04:39 FAN DOMINGUEZ MD May 30, 2020 14:01
[2020-05-30 14:38] LABS: HEMATOCRIT 29.3 % (36.0-47.0); HEMOGLOBIN 9.3 g/dl (12.0-15.5); MEAN CORPUSCULAR HEMOGLOBIN 27.8 pg (27.0-33.0); MEAN CORPUSCULAR HGB CONC 31.7 g/dl (32.0-36.5); MEAN CORPUSCULAR VOLUME 87.7 fl (80.0-96.0); PLATELET COUNT, AUTOMATED 303 10^3/uL (150-450); RED BLOOD COUNT 3.34 10^6/uL (4.00-5.40); WHITE BLOOD COUNT 18.6 10^3/uL (4.0-10.0)
[2020-05-30 15:28] LABS: BLOOD UREA NITROGEN 25 MG/DL (7-18); CALCIUM LEVEL 7.9 MG/DL (8.8-10.2); CARBON DIOXIDE LEVEL 32 MEQ/L (21-32); CHLORIDE LEVEL 99 MEQ/L (98-107); CREATININE FOR GFR 0.58 MG/DL (0.55-1.30); GLOMERULAR FILTRATION RATE > 60.0 (>45); GLUCOSE, FASTING 157 MG/DL (70-100); POTASSIUM SERUM 3.6 MEQ/L (3.5-5.1); SODIUM LEVEL 137 MEQ/L (136-145)
[2020-05-30 16:20] VITALS: BP 110/64
--- NOTE | 2020-05-30 17:59 | ECGEPIP ---
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
[2020-05-30] MEDS ORDERED: POTASSIUM CHLORIDE 10 MEQ SR TABLET PO ONE (18:00)
[2020-05-30] MEDS: RIVAROXABAN 20 MG TAB (XARELTO) PO SCH (18:37)
[2020-05-30 20:00] VITALS: BP 98/60
[2020-05-31] VITALS: BP 102/62
[2020-05-31 04:00] VITALS: BP 107/68
[2020-05-31] MEDS: SODIUM CHLORIDE 0.9% INJ 10 ML SYR IV SCH ×2 (05:12→17:24)
[2020-05-31 07:35] LABS: HEMATOCRIT 26.4 % (36.0-47.0); HEMOGLOBIN 8.4 g/dl (12.0-15.5); MEAN CORPUSCULAR HGB CONC 31.8 g/dl (32.0-36.5); PLATELET COUNT, AUTOMATED 264 10^3/uL (150-450); WHITE BLOOD COUNT 15.4 10^3/uL (4.0-10.0)
[2020-05-31 07:49] LABS: ALBUMIN 1.8 GM/DL (3.2-5.2); ALT/SGPT 39 U/L (12-78); BILIRUBIN,TOTAL 0.6 MG/DL (0.2-1.0); BLOOD UREA NITROGEN 21 MG/DL (7-18); CALCIUM LEVEL 7.5 MG/DL (8.8-10.2); CARBON DIOXIDE LEVEL 32 MEQ/L (21-32); CHLORIDE LEVEL 101 MEQ/L (98-107); CREATININE FOR GFR 0.46 MG/DL (0.55-1.30); GLOMERULAR FILTRATION RATE > 60.0 (>45); GLUCOSE, FASTING 120 MG/DL (70-100); POTASSIUM SERUM 3.9 MEQ/L (3.5-5.1); SODIUM LEVEL 141 MEQ/L (136-145); TOTAL PROTEIN 4.5 GM/DL (6.4-8.2)
[2020-05-31 08:00] VITALS: BP 123/70
[2020-05-31] MEDS: LEVALBUTEROL 1.25 MG/0.5 ML CONCENTRATE NEB INH SCH ×3 (08:21→20:57)
--- NOTE | 2020-05-31 08:36 | CCN ---
DATE: 05/30/2020 This note was dictated in conjunction with supervising physician, Dr. Rashi Crain CRITICAL CARE TIME: 1 hour 40 minutes, excluding all procedures. SUBJECTIVE: Ms. Lau is a 65-year-old female with acute hypoxic respiratory failure secondary to community acquired pneumonia, status post endotracheal intubation for 9 years, extubated on May 24, 2020, being managed on Vapotherm high-flow oxygen at an oxygen flow rate of 30 with an FiO2 of 50. The patient currently still persists to be in atrial fibrillation with rapid ventricular response. No overnight events reported by the nurse. The patient reports palpitations. Denies any chest pain, fevers, abdominal pain, nausea or vomiting. OBJECTIVE: The patient looks comfortable, lying in her bed under no acute distress, not using any accessory muscles of respiration. Input and output: The patient is in a negative balance of -1.8 liters. She is saturating 91.2% on high flow Vapotherm at an oxygen flow rate of 30 with an FiO2 of 50. Vital signs: T-max of 97.8 degrees Fahrenheit. Heart rate is 75, respiratory rate 20, blood pressure 114/54. PHYSICAL EXAMINATION: HEENT: Atraumatic, normocephalic. Extraocular muscles are intact. Moist mucous membranes. She has dentures. Vapotherm cannula is in place. Neck is supple with no tracheal deviation. She has a PICC line in place on the right side of her neck. Cardiovascular: Regular S1, S2 heard. No murmurs, rubs or gallops. Pulmonary: Decreased bilateral breath sounds. Crackles markedly decreased, still on the bases no wheezing or rhonchi. Gastrointestinal: Obese abdomen, nontender, non-distended. No organomegaly. She does complain of some tenderness in her right lower quadrant of the abdomen. It feels indurated because of subcutaneous Lovenox injections. There is no erythema. No ulceration. No rash. Extremities: Lower extremity bilateral no pitting edema can be appreciated. Extremities are warm and well perfused with good volume pulses. Neurologic: She is alert and oriented to time, place and person with appropriate affect and mood. Her cranial nerves II-XII are intact. Good motor strength 5/5 and sensations are intact. LABORATORY DATA: Her labs from today show leukocytosis which are trending down from 16.3 yesterday to 15.9 today. Hemoglobin of 9.4, hematocrit of 29.5, platelets 311. Her basic metabolic panel (BMP) shows a sodium of 141, chloride of 100, low potassium, high carbon dioxide, BUN 22, creatinine of 0.46. IMAGING: On imaging, her chest x-ray still shows diffuse multifocal infiltrates, right greater than the left. ASSESSMENT AND PLAN: The patient is a 65-year-old female with a past pertinent medical history of hypertension, admitted for acute hypoxic respiratory failure secondary to community acquired pneumonia or pulmonary edema. 1. Acute hypoxic respiratory failure secondary to community acquired pneumonia or pulmonary edema. The patient was saturating 91.2% today on high-flow nasal oxygen system, Vapotherm at an oxygen flow rate of 30 liters and an FiO2 of 50. Her white count is trending down from 16.3 to 15.9 today. She is afebrile. The patient is on levalbuterol and DuoNeb. We will be discontinuing her vancomycin and ceftriaxone for today. The patient was status post endotracheal intubation, later extubated successfully on May 24. Saturating 91.2% on high-flow nasal oxygen system, Vapotherm, with an oxygen flow fate of 35 liters and FiO2 of 50. The patient still remains at a high risk for intubation. Will continue to monitor vitals, input and output, weight and labs. 2. New onset atrial fibrillation with rapid ventricular response. Status post four amiodarone boluses. She was given digoxin 0.25 mg as well. For rate control, she is on metoprolol 5 mg. Continues to remain in atrial fibrillation as of now with stable vitals. Cardiology is on board in monitoring the patient. Echocardiogram showed mild tricuspid regurgitation with mild left atrial dilation and a moderate pulmonary hypertension. Her antibiotics are discontinued today including Diflucan, because of high risk of conduction defects. 3. Hypertension. Feels stable on home medications. Her blood pressure this morning was 114/54. Will continue with Norvasc. Discontinue Lasix today and continue to monitor input and output and weight. 4. Hypokalemia. Her morning potassium level was 3.3. We ordered a 40 mEq of KCl today and have ordered a repeat check of potassium. We will reassess later on in the afternoon. 5. Hypoalbuminemia. Her albumin is 1.8. Need to optimize nutrition. 6. Leukocytosis. Her WBC this morning is 15.9 trending down from 16.3 yesterday, likely due to high doses of steroids. We will continue to monitor daily labs. 7. Obesity. This complicates care. Her body mass index (BMI) is 59.2; optimize nutrition. 8. Deconditioning. The patient was able to sit at the edge of the bed for 3 to 4 minutes before she felt the need to lay down again. Physical therapy is on board. As of now, the patient is just able to lift her torso up before feeling weak and feeling the need to lie down again. They will continue working with her. The patient was talked to about the importance of moving and being active, getting back to her baseline. 9. Deep venous thrombosis (DVT) prophylaxis. The patient was changed to rivaroxaban 20 mg per oral daily. Her Lovenox was stopped. 10. New onset anemia. I have ordered another hemoglobin and hematocrit for the afternoon. Will watch. Her Lovenox was discontinued. She was put on rivaroxaban 20 mg OD as of new. 11. GI prophylaxis. The patient is on Protonix 40 mg b.i.d. I, Rashi Crain, Conducted an independent history and physical and agree with the above. Hypoxia seems to be responding to diuresis. Patient very sluggish and not motivated to move or exercise. is feeding her breakfast. ARELIS
[2020-05-31] MEDS: HumaLOG INSULIN (NovoLOG) PER UNIT SC SCH ×4 (09:03→21:00)
[2020-05-31] MEDS: AMIODARONE 200 MG TAB (PACERONE) PO SCH ×2 (09:03→21:20)
[2020-05-31] MEDS: LACTOBACILLUS ACIDOPHILUS CAP (BACID) PO SCH ×3 (09:04→17:24)
[2020-05-31] MEDS: K-PHOS NEUTRAL 250MG TABLET (SOD.PHOSPHATE/POT.PHOSPHATE) PO SCH ×3 (09:04→21:19)
[2020-05-31] MEDS: PANTOPRAZOLE 40MG TAB (PROTONIX) PO SCH (09:04)
[2020-05-31] MEDS: amLODIPine 10 MG TAB PO SCH (09:04)
[2020-05-31] MEDS: METOPROLOL TARTRATE 100 MG TAB PO SCH ×2 (09:05→21:23)
[2020-05-31] MEDS ORDERED: FUROSEMIDE 40MG/4ML VIAL (J1940) IV ONE (10:00)
[2020-05-31] MEDS ORDERED: POTASSIUM CHLORIDE 10 MEQ SR TABLET PO ONE (10:30)
[2020-05-31 12:00] VITALS: BP 111/55
--- NOTE | 2020-05-31 13:55 | IPN ---
PULMONARY PROGRESS NOTE Rashi Crain DO is my supervising physician and will be co-signing this note. DATE: 05/31/2020 SUBJECTIVE: Ms. Lau is seen in the PCU. She reports that she feels her breathing is slowly improving. She did state that she had a very mild nosebleed which she states was easily stopped. She is; however, requiring more oxygen than yesterday. She denies any fevers or chills. She is also being monitored by cardiology. She denies chest pain. PHYSICAL EXAMINATION: Vitals: Temperature 96.9, pulse 118, respiratory rate 16, blood pressure 123/70, pulse ox 93% on Vapotherm with an O2 flow rate of 30 and an FiO2 of 75. General: Patient is alert and oriented times 3. Mood and affect appropriate. She speaks in complete sentences. HEENT: Head is normocephalic, atraumatic. Moist mucous membranes. Neck: Supple. No cervical lymphadenopathy. Trachea is midline. Heart: Regular S1 and S2 with no murmurs. Pulmonary: Diminished breath sounds, but otherwise clear with no wheezes or rhonchi. No definite crackles. Abdomen: Positive bowel sounds, soft, nontender, obese. No obvious hepatosplenomegaly although it is difficult to elicit due to body habitus. Extremities: Patient does have bilateral lower extremity edema without pitting. Neuro: Nonfocal grossly. Skin: Warm and dry. LABORATORY DATA: WBC 15.4, hemoglobin 8.4, hematocrit 26.4, platelets 264. Sodium 141, potassium 3.9, chloride 101, carbon dioxide 32, BUN 21, creatinine 0.46, glucose 120. Calcium 7.5, total bilirubin 0.6, AST 34, ALT 39, alkaline phosphatase 98. Total protein 4.5. Albumin 1.8. ASSESSMENT AND PLAN: Acute respiratory failure secondary to community acquired pneumonia and pulmonary edema: Antibiotics were discontinued recently secondary to procalcitonin levels. We had paused the aggressive diuresis because of bicarb trending up; however, she is requiring more oxygen today likely related to volume overload and therefore we will reinitiate diuresis by giving her Lasix 40 mg I.V. times 1 dose. This will need to be monitored to determine further diuretics. We have communicated this to the patient's primary Hospitalist. I will also give a dose of potassium as we will be giving the Lasix. MTDD
[2020-05-31 16:00] VITALS: BP 100/65
[2020-05-31] MEDS: RIVAROXABAN 20 MG TAB (XARELTO) PO SCH (17:24)
[2020-05-31 19:23] VITALS: BP 96/60
--- NOTE | 2020-05-31 22:19 | IPNPDOC ---
Date Seen The patient was seen on 05/31/20. Progress Note SUBJECTIVE: patient was seen and examined at bedside this morning. HR 140s overnight, improved this morning. Denies active SOB, chest pain at this time. She is receiving O2 supplementation via VapoTherm at 30 LPM and 75% this morning. States OBJECTIVE PHYSICAL EXAMINATION: VITAL SIGNS: please see below General: NAD, comfortable HEENT: PERRLA, EOMI, sclerae clear Neck: supple, normal ROM, no JVD Respiratory: Bilateral decreased breath sounds, noted bilateral crackles at bases CVS: RRR, normal S1, S2, no murmurs Abdo: soft, no masses, no hepatosplenomegaly, BS+, no rebound tenderness Extremities: Bilateral lower extremity nonpitting edema, extremities are noncyanotic, pulses plus MSK: no joint deformities, normal ROM Neuro: no focal neuro deficits, moving all 4 extremities, CN2-12 intact. Strength 5/5 in all 4 extremities. No nystagmus. Psych: calm, cooperative, AAO x 3 LABORATORY DATA, IMAGING STUDIES, MICROBIOLOGY: Please see below. Echocardiogram (05/26/20): 1. Normal global left ventricular systolic function with mild concentric left ventricular hypertrophy. Assessment of the left ventricular diastolic function appeared to be normal. 2. Aortic valve sclerosis with trivial aortic stenosis, but no aortic regurgitation. 3. Isolated mitral annular calcification. Subjectively, the left atrium appeared to be mildly enlarged. 4. Mild tricuspid regurgitation with probably moderate pulmonary hypertension. Subjectively, the right atrium is enlarged. DVT prophylaxis ordered?: Y, on xarelto ASSESSMENT AND PLAN: 65 y/o F with PMH of HTN, obesity, macular degeneration admitted for acute hypoxic respiratory failure 2/2 to community acquired PNA, recently extubated on 05/24/20, showing improvement in oxygen requirement. Downgraded to PCU 05/30/20. PROBLEMS: # Acute hypoxic respiratory failure 2/2 to community acquired PNA, pulmonary edema. Cannot r/o acute interstitial PNA, Obesity hypoventilation syndrome as contributing factors to hypoxia -s/p bronch 05/17/20, remained ventilated and later extubated successfully on 05/24/20 -slow improvement on vapotherm. 30 LPM at FiO2 75%. -Vancomycin added 05/29/20 and WBC improved to 16.3 from 21.9. Difficult to say if leukocytosis is 2/2 steroid induced leukocytosis vs. infection. Remains afebrile. -Added Vancomycin (2 days) ,Ceftriaxone (14 days), Azithromycin (10 days), PO prednisone, Duoneb ATC, lasix daily. -Completed Fluconazole for 10 days (stopped 05/29/20) - abx stopped as procal diminished -C/w acapella Q2 H while awake - start chest PT - resumed lasix 05/31/20 40 mg IV once. -Patient refusing CPAP per pulmonary notes -Monitor I&O's closely, daily wt, daily labs # Atrial fibrillation with RVR, new this admission -S/p digoxin, four amiodarone boluses -Cardiology helping to manage, Dr. Hartley note from 05/30/20 reviewe. -2D echo as above. - per Dr. Hartley, amiodarone 400 mg bid for 1 week (through 06/05), with plan to reduce to 200 mg daily (plan to continue amiodarone for approx 3 months). Consider reducing dose of metoprolol in time, but not now. -C/w xarelto, CCB and BB BID. -Tele # HTN -C/w CCB, lasix, BB # Obesity -Complicates care -BMI 59.2 -Optimize nutrition #Protein malnutrition -Low albumin -Appreciate full nutrition assessment # GI px -PPI #DVT px -D/melo lovenox and switched to xarelto daily DISPOSITION: Patient downgraded to PCU. Continue vapotherm. Making slow improvements. VS, I&O, 24H, Fishbone Vital Signs/I&O Vital Signs Date Time Temp Pulse Resp B/P (MAP) Pulse Ox O2 Delivery O2 Flow Rate FiO2 05/31/20 21:23 90 118/70 05/31/20 20:57 HVNI-Vapotherm 30.0 60 05/31/20 19:23 98.1 16 99 I&O- Last 24 Hours up to 6 AM 05/31/20 06:00 Intake Total 1260 ml Output Total 1325 ml Balance -65 ml Laboratory Data 24H LABS Laboratory Tests 2 05/31/20 06:58: Nucleated Red Blood Cells % (auto) 0.0, Anion Gap 8, Glomerular Filtration Rate > 60.0, Calcium Level 7.5L, Total Bilirubin 0.6, Aspartate Amino Transf (AST/SGOT) 34, Alanine Aminotransferase (ALT/SGPT) 39, Alkaline Phosphatase 98, Total Protein 4.5L, Albumin 1.8L, Albumin/Globulin Ratio 0.7L 05/31/20 12:45: Bedside Glucose (Misc Panel) 92 05/31/20 16:42: Bedside Glucose (Misc Panel) 122H 05/31/20 19:56: Bedside Glucose (Misc Panel) 147H CBC/BMP Laboratory Tests 05/31/20 06:58 FAN DOMINGUEZ MD May 31, 2020 22:19
[2020-06-01] VITALS: BP 129/75
[2020-06-01 04:00] VITALS: BP 110/56
[2020-06-01] MEDS: SODIUM CHLORIDE 0.9% INJ 10 ML SYR IV SCH ×2 (05:41→18:00)
[2020-06-01 06:12] LABS: BASO % 0.2 % (0.0-1.0); EOS # 0.4 10^3/uL (0.0-0.5); EOS % 3.3 % (0.0-3.0); HEMATOCRIT 26.7 % (36.0-47.0); HEMOGLOBIN 8.3 g/dl (12.0-15.5); LYMPH % 8.2 % (24.0-44.0); MEAN CORPUSCULAR HGB CONC 31.1 g/dl (32.0-36.5); MEAN CORPUSCULAR VOLUME 90.2 fl (80.0-96.0); MONO # 0.8 10^3/uL (0.0-0.8); MONO % 6.4 % (0.0-5.0); NEUTROPHILS # 10.2 10^3/uL (1.5-8.5); NEUTROPHILS % 80.5 % (36.0-66.0); PLATELET COUNT, AUTOMATED 229 10^3/uL (150-450); RED BLOOD COUNT 2.96 10^6/uL (4.00-5.40); WHITE BLOOD COUNT 12.7 10^3/uL (4.0-10.0)
[2020-06-01 06:34] LABS: ALBUMIN 1.7 GM/DL (3.2-5.2); ALT/SGPT 42 U/L (12-78); BILIRUBIN,TOTAL 0.7 MG/DL (0.2-1.0); BLOOD UREA NITROGEN 22 MG/DL (7-18); CALCIUM LEVEL 7.7 MG/DL (8.8-10.2); CARBON DIOXIDE LEVEL 33 MEQ/L (21-32); CHLORIDE LEVEL 100 MEQ/L (98-107); CREATININE FOR GFR 0.46 MG/DL (0.55-1.30); GLOMERULAR FILTRATION RATE > 60.0 (>45); GLUCOSE, FASTING 112 MG/DL (70-100); MAGNESIUM LEVEL 1.7 MG/DL (1.8-2.4); POTASSIUM SERUM 3.5 MEQ/L (3.5-5.1); SODIUM LEVEL 139 MEQ/L (136-145)
--- NOTE | 2020-06-01 07:08 | REP ---
INDICATION: pneumonia COMPARISON: 05/29/2020 TECHNIQUE: Portable AP view of the chest FINDINGS: Diffuse bilateral alveolar and interstitial infiltrates (right greater than left) are again noted and relatively similar to prior examination although mild improvement cannot be excluded and should be correlated with physical examination. Small layering pleural effusions cannot be excluded. No pneumothorax. Mediastinum and cardiac silhouette are incompletely evaluated due to overlying opacities. Right PICC line with tip in the SVC unchanged. IMPRESSION: Diffuse bilateral infiltrates similar to prior examination although mild improvement cannot be excluded. <Electronically signed by Yuri Bolton > 06/01/20 0704
[2020-06-01] MEDS: HumaLOG INSULIN (NovoLOG) PER UNIT SC SCH ×4 (07:30→19:53)
[2020-06-01 08:00] VITALS: BP 119/73
[2020-06-01] MEDS: LEVALBUTEROL 1.25 MG/0.5 ML CONCENTRATE NEB INH SCH ×3 (08:00→21:12)
[2020-06-01] MEDS ORDERED: MAG SULF 1GM/100ML (MAG RUN) 1 GM in IV 1 EA IV ONE (08:00)
[2020-06-01] MEDS: PANTOPRAZOLE 40MG TAB (PROTONIX) PO SCH (10:19)
[2020-06-01] MEDS: FUROSEMIDE 40MG/4ML VIAL (J1940) IV SCH (10:19)
[2020-06-01] MEDS: AMIODARONE 200 MG TAB (PACERONE) PO SCH ×2 (10:20→20:44)
[2020-06-01] MEDS: K-PHOS NEUTRAL 250MG TABLET (SOD.PHOSPHATE/POT.PHOSPHATE) PO SCH ×3 (10:20→20:44)
[2020-06-01] MEDS: LACTOBACILLUS ACIDOPHILUS CAP (BACID) PO SCH ×3 (10:21→18:00)
[2020-06-01] MEDS: amLODIPine 10 MG TAB PO SCH (10:32)
[2020-06-01] MEDS: METOPROLOL TARTRATE 100 MG TAB PO SCH ×2 (10:37→20:45)
--- NOTE | 2020-06-01 11:31 | IPNPDOC ---
Date Seen The patient was seen on 06/01/20. Progress Note SUBJECTIVE: patient was seen and examined at bedside this morning. HR controlled overnight. Denies active SOB, chest pain at this time. She is receiving O2 supplementation via VapoTherm at 30 LPM and 60% this morning. States feels better overall. OBJECTIVE PHYSICAL EXAMINATION: VITAL SIGNS: please see below General: NAD, comfortable HEENT: PERRLA, EOMI, sclerae clear Neck: supple, normal ROM, no JVD Respiratory: Bilateral decreased breath sounds, noted bilateral crackles at bases CVS: RRR, normal S1, S2, no murmurs Abdo: soft, no masses, no hepatosplenomegaly, BS+, no rebound tenderness Extremities: Bilateral lower extremity nonpitting edema, extremities are noncyanotic, pulses plus MSK: no joint deformities, normal ROM Neuro: no focal neuro deficits, moving all 4 extremities, CN2-12 intact. Strength 5/5 in all 4 extremities. No nystagmus. Psych: calm, cooperative, AAO x 3 LABORATORY DATA, IMAGING STUDIES, MICROBIOLOGY: Please see below. Echocardiogram (05/26/20): 1. Normal global left ventricular systolic function with mild concentric left ventricular hypertrophy. Assessment of the left ventricular diastolic function appeared to be normal. 2. Aortic valve sclerosis with trivial aortic stenosis, but no aortic regurgitation. 3. Isolated mitral annular calcification. Subjectively, the left atrium appeared to be mildly enlarged. 4. Mild tricuspid regurgitation with probably moderate pulmonary hypertension. Subjectively, the right atrium is enlarged. DVT prophylaxis ordered?: Y, on xarelto ASSESSMENT AND PLAN: 65 y/o F with PMH of HTN, obesity, macular degeneration admitted for acute hypoxic respiratory failure 2/2 to community acquired PNA, recently extubated on 05/24/20, showing improvement in oxygen requirement. Downgraded to PCU 05/30/20. negative fluid balance ~-1200. PROBLEMS: # Acute hypoxic respiratory failure 2/2 to community acquired PNA, pulmonary edema. Cannot r/o acute interstitial PNA, Obesity hypoventilation syndrome as contributing factors to hypoxia -s/p bronch 05/17/20, remained ventilated and later extubated successfully on 05/24/20 -slow improvement on vapotherm. 30 LPM at FiO2 60%. - WBC slowly trending down. -Added Vancomycin (2 days), Ceftriaxone (14 days), Azithromycin (10 days), PO prednisone, Duoneb ATC, lasix daily. -Completed Fluconazole for 10 days (stopped 05/29/20) - abx stopped as procal diminished - C/w acapella Q2 H while awake - start chest PT - resumed lasix 05/31/20 40 mg IV daily -Patient refusing CPAP per pulmonary notes -Monitor I&O's closely, daily wt, daily labs # Atrial fibrillation with RVR, new this admission -S/p digoxin, four amiodarone boluses -Cardiology helping to manage, Dr. Hartley note from 05/30/20 reviewe. -2D echo as above. - per Dr. Hartley, amiodarone 400 mg bid for 1 week (through 06/05), with plan to reduce to 200 mg daily (plan to continue amiodarone for approx 3 months). Consider reducing dose of metoprolol in time, but not now. -C/w xarelto, CCB and BB BID. -Tele # HTN -C/w CCB, lasix, BB # Obesity -Complicates care -BMI 59.2 -Optimize nutrition #Protein malnutrition -Low albumin -Appreciate full nutrition assessment # GI px -PPI #DVT px -D/melo lovenox and switched to xarelto daily DISPOSITION: Patient downgraded to PCU. Continue vapotherm. Making slow improvements. VS, I&O, 24H, Edgardo Vital Signs/I&O Vital Signs Date Time Temp Pulse Resp B/P (MAP) Pulse Ox O2 Delivery O2 Flow Rate FiO2 06/01/20 10:37 78 108/64 06/01/20 09:00 93 HVNI-Vapotherm 30.0 60 06/01/20 08:00 96.9 17 I&O- Last 24 Hours up to 6 AM 06/01/20 06:00 Intake Total 840 ml Output Total 1650 ml Balance -810 ml Laboratory Data 24H LABS Laboratory Tests 2 05/31/20 12:45: Bedside Glucose (Misc Panel) 92 05/31/20 16:42: Bedside Glucose (Misc Panel) 122H 05/31/20 19:56: Bedside Glucose (Misc Panel) 147H 06/01/20 05:52: Immature Granulocyte % (Auto) 1.4, Neutrophils (%) (Auto) 80.5H, Lymphocytes (%) (Auto) 8.2L, Monocytes (%) (Auto) 6.4H, Eosinophils (%) (Auto) 3.3H, Basophils (%) (Auto) 0.2, Neutrophils # (Auto) 10.2H, Lymphocytes # (Auto) 1.0L, Monocytes # (Auto) 0.8, Eosinophils # (Auto) 0.4, Basophils # (Auto) 0.0, Nucleated Red Blood Cells % (auto) 0.0, Anion Gap 6L, Glomerular Filtration Rate > 60.0, Calcium Level 7.7L, Magnesium Level 1.7L, Total Bilirubin 0.7, Aspartate Amino Transf (AST/SGOT) 37, Alanine Aminotransferase (ALT/SGPT) 42, Alkaline Phosphatase 98, Total Protein 5.0L, Albumin 1.7L, Albumin/Globulin Ratio 0.5L CBC/BMP Laboratory Tests 06/01/20 05:52 FAN DOMINGUEZ MD Jun 01, 2020 11:31
[2020-06-01] MEDS: SODIUM CHLORIDE 0.9% INJ 10 ML SYR IV PRN (11:32)
[2020-06-01 12:00] VITALS: BP 110/59
[2020-06-01 16:00] VITALS: BP 115/58
[2020-06-01] MEDS: RIVAROXABAN 20 MG TAB (XARELTO) PO SCH (18:00)
[2020-06-01] MEDS: BISACODYL 10 MG SUPP PR PRN (18:00)
[2020-06-01 20:00] VITALS: BP 115/59
[2020-06-02] VITALS: BP 109/57
[2020-06-02 04:00] VITALS: BP 116/71
[2020-06-02] MEDS: SODIUM CHLORIDE 0.9% INJ 10 ML SYR IV SCH ×2 (05:00→18:07)
[2020-06-02 05:52] LABS: ALBUMIN 1.7 GM/DL (3.2-5.2); ALT/SGPT 39 U/L (12-78); BILIRUBIN,TOTAL 0.6 MG/DL (0.2-1.0); BLOOD UREA NITROGEN 19 MG/DL (7-18); CALCIUM LEVEL 7.2 MG/DL (8.8-10.2); CARBON DIOXIDE LEVEL 37 MEQ/L (21-32); CHLORIDE LEVEL 101 MEQ/L (98-107); CREATININE FOR GFR 0.48 MG/DL (0.55-1.30); GLOMERULAR FILTRATION RATE > 60.0 (>45); GLUCOSE, FASTING 107 MG/DL (70-100); MAGNESIUM LEVEL 1.7 MG/DL (1.8-2.4); POTASSIUM SERUM 3.2 MEQ/L (3.5-5.1); SODIUM LEVEL 141 MEQ/L (136-145); TOTAL PROTEIN 4.7 GM/DL (6.4-8.2)
[2020-06-02 06:03] LABS: BASO % 0.1 % (0.0-1.0); EOS # 0.3 10^3/uL (0.0-0.5); EOS % 3.2 % (0.0-3.0); HEMATOCRIT 23.9 % (36.0-47.0); HEMOGLOBIN 7.5 g/dl (12.0-15.5); LYMPH # 0.8 10^3/uL (1.5-5.0); LYMPH % 8.2 % (24.0-44.0); MEAN CORPUSCULAR HEMOGLOBIN 28.6 pg (27.0-33.0); MEAN CORPUSCULAR HGB CONC 31.4 g/dl (32.0-36.5); MEAN CORPUSCULAR VOLUME 91.2 fl (80.0-96.0); MONO # 0.6 10^3/uL (0.0-0.8); MONO % 5.9 % (0.0-5.0); NEUTROPHILS # 8.3 10^3/uL (1.5-8.5); NEUTROPHILS % 81.4 % (36.0-66.0); PLATELET COUNT, AUTOMATED 216 10^3/uL (150-450); RED BLOOD COUNT 2.62 10^6/uL (4.00-5.40); WHITE BLOOD COUNT 10.2 10^3/uL (4.0-10.0)
[2020-06-02] MEDS ORDERED: MAG SULF 1GM/100ML (MAG RUN) 1 GM in IV 1 EA IV ONE (06:30)
[2020-06-02] MEDS: POTASSIUM CHLORIDE 10% LIQ 20 MEQ/15 ML UDC PO SCH ×2 (06:45→08:54)
[2020-06-02] MEDS: LEVALBUTEROL 1.25 MG/0.5 ML CONCENTRATE NEB INH SCH ×3 (07:18→20:21)
[2020-06-02] MEDS: HumaLOG INSULIN (NovoLOG) PER UNIT SC SCH ×4 (07:30→20:37)
[2020-06-02 08:00] VITALS: BP 116/72
[2020-06-02] MEDS ORDERED: POTASSIUM CHLORIDE 10 MEQ SR TABLET PO ONE (08:00)
[2020-06-02] MEDS: AMIODARONE 200 MG TAB (PACERONE) PO SCH ×2 (08:53→20:37)
[2020-06-02] MEDS: PANTOPRAZOLE 40MG TAB (PROTONIX) PO SCH (08:54)
[2020-06-02] MEDS: LACTOBACILLUS ACIDOPHILUS CAP (BACID) PO SCH ×3 (08:54→18:06)
[2020-06-02] MEDS: amLODIPine 10 MG TAB PO SCH (08:55)
[2020-06-02] MEDS: METOPROLOL TARTRATE 100 MG TAB PO SCH ×2 (08:55→20:37)
[2020-06-02] MEDS: FUROSEMIDE 40MG/4ML VIAL (J1940) IV SCH (08:56)
[2020-06-02] MEDS: K-PHOS NEUTRAL 250MG TABLET (SOD.PHOSPHATE/POT.PHOSPHATE) PO SCH ×3 (09:00→20:37)
--- NOTE | 2020-06-02 10:51 | REP ---
INDICATION: pneumonia. COMPARISON: 06/01/2020, 05/29/2020, 05/28/2020; CT 05/12/2020 TECHNIQUE: AP portable FINDINGS: Again noted is a right-sided PICC line extending into the SVC above the right atrium. Some volume loss in the right hemithorax with extensive infiltrates throughout the right and in the mid and lower left lung. Allowing for differences in technique, I do not see significant interval change. Tortuous calcified aorta evident. The infiltrates could certainly obscure underlying lung lesions. There is relative sparing of the left upper lung zone from infiltrates but there is bullous emphysematous change and fibrosis in that location as well. Cardiomediastinal silhouette unchanged with left ventricular configuration of the heart. IMPRESSION: Extensive bilateral infiltrates without significant interval change. Relative sparing of the left upper lung zone but chronic changes from fibrosis and COPD there is well. Allowing for slight differences of inflation and technique, I do not see significant interval change. <Electronically signed by Ricki Schuler > 06/02/20 1045
[2020-06-02 12:00] VITALS: BP 88/58
[2020-06-02] MEDS ORDERED: NS 500 ML IV ONE (12:45)
--- NOTE | 2020-06-02 14:51 | IPNPDOC ---
Date Seen The patient was seen on 06/02/20. Progress Note SUBJECTIVE: Patient seen and examined at bedside this morning. States doing well overnight, shortness of breath is improved. Continues Vapotherm at 30 L/m at 50% FiO2. RN informing the patient was working with PT and listed up blood pressure dropped to 80/60, patient was asymptomatic. OBJECTIVE PHYSICAL EXAMINATION: VITAL SIGNS: please see below General: NAD, comfortable HEENT: PERRLA, EOMI, sclerae clear Neck: supple, normal ROM, no JVD Respiratory: Bilateral decreased breath sounds, noted bilateral crackles at bases CVS: RRR, normal S1, S2, no murmurs Abdo: soft, no masses, no hepatosplenomegaly, BS+, no rebound tenderness Extremities: Bilateral lower extremity nonpitting edema, extremities are noncyanotic, pulses plus MSK: no joint deformities, normal ROM Neuro: no focal neuro deficits, moving all 4 extremities, CN2-12 intact. Strength 5/5 in all 4 extremities. No nystagmus. Psych: calm, cooperative, AAO x 3 LABORATORY DATA, IMAGING STUDIES, MICROBIOLOGY: Please see below. Echocardiogram (05/26/20): 1. Normal global left ventricular systolic function with mild concentric left ventricular hypertrophy. Assessment of the left ventricular diastolic function appeared to be normal. 2. Aortic valve sclerosis with trivial aortic stenosis, but no aortic regurgitation. 3. Isolated mitral annular calcification. Subjectively, the left atrium appeared to be mildly enlarged. 4. Mild tricuspid regurgitation with probably moderate pulmonary hypertension. Subjectively, the right atrium is enlarged. DVT prophylaxis ordered?: Y, on xarelto ASSESSMENT AND PLAN: 65 y/o F with PMH of HTN, obesity, macular degeneration admitted for acute hypoxic respiratory failure 2/2 to community acquired PNA, recently extubated on 05/24/20, showing improvement in oxygen requirement. Downg raded to PCU 05/30/20. negative fluid balance ~-1200. PROBLEMS: # Acute hypoxic respiratory failure 2/2 to community acquired PNA, pulmonary edema. Cannot r/o acute interstitial PNA, Obesity hypoventilation syndrome as contributing factors to hypoxia -s/p bronch 05/17/20, remained ventilated and later extubated successfully on 05/24/20 -slow improvement on vapotherm. 30 LPM at FiO2 60%. - WBC slowly trending down. -Added Vancomycin (2 days), Ceftriaxone (14 days), Azithromycin (10 days), PO prednisone, Duoneb ATC, lasix daily. -Completed Fluconazole for 10 days (stopped 05/29/20) - abx stopped as procal diminished - C/w acapella Q2 H while awake - start chest PT - resumed lasix 05/31/20 40 mg IV daily -Patient refusing CPAP per pulmonary notes -Monitor I&O's closely, daily wt, daily labs #Hypotension: 88/58, on standing with PT, suspect orthostasis. Recived lasxi 40 mg IV today. Will give 500 cc bolus. # Atrial fibrillation with RVR, new this admission -S/p digoxin, four amiodarone boluses - HR well controlled today. -Cardiology recs reviewed and appreciated. - 2D echo as above. - per Dr. Hartley, amiodarone 400 mg bid for 1 week (through 06/05), with plan to reduce to 200 mg daily (plan to continue amiodarone for approx 3 months). Consider reducing dose of metoprolol in time, but not now. - DC xarelto given low Hgb. Cw CCB and BB BID. - Tele #Acute anemia: Hgb 7.5 this am, down from 11.3 (05/29). Hold xarelto. Check FOBT. UA clear. CXR unchanged, dense consolidation b/l. Repeat HH. Check ammonia. LA. Iron panel. Transfuse Hg < 7. # HTN -C/w CCB, lasix, BB # Obesity -Complicates care -BMI 59.2 -Optimize nutrition #Protein malnutrition -Low albumin -Appreciate full nutrition assessment # GI px -PPI #DVT px: hold xarelto. SCDs. TEDs. DISPOSITION: working with PT, still unable to stand. VS, I&O, 24H, Fishbone Vital Signs/I&O Vital Signs Date Time Temp Pulse Resp B/P (MAP) Pulse Ox O2 Delivery O2 Flow Rate FiO2 06/02/20 12:00 98.8 58 16 88/58 (68) 95 HVNI-Vapotherm 30.0 50 I&O- Last 24 Hours up to 6 AM 06/02/20 06:00 Intake Total 1140 ml Output Total 1950 ml Balance -810 ml Laboratory Data 24H LABS Laboratory Tests 2 06/01/20 17:20: Bedside Glucose (Misc Panel) 83 06/01/20 19:26: Bedside Glucose (Misc Panel) 151H 06/02/20 05:02: Immature Granulocyte % (Auto) 1.2, Neutrophils (%) (Auto) 81.4H, Lymphocytes (%) (Auto) 8.2L, Monocytes (%) (Auto) 5.9H, Eosinophils (%) (Auto) 3.2H, Basophils (%) (Auto) 0.1, Neutrophils # (Auto) 8.3, Lymphocytes # (Auto) 0.8L, Monocytes # (Auto) 0.6, Eosinophils # (Auto) 0.3, Basophils # (Auto) 0.0, Nucleated Red Blood Cells % (auto) 0.0, Anion Gap 3L, Glomerular Filtration Rate > 60.0, Calcium Level 7.2L, Magnesium Level 1.7L, Total Bilirubin 0.6, Aspartate Amino Transf (AST/SGOT) 26, Alanine Aminotransferase (ALT/SGPT) 39, Alkaline Phosphatase 89, Total Protein 4.7L, Albumin 1.7L, Albumin/Globulin Ratio 0.6L 06/02/20 11:40: Bedside Glucose (Misc Panel) 115 06/02/20 13:24: Urine Color YELLOW, Urine Appearance CLEAR, Urine pH 7.0, Urine Specific [place] 1.012, Urine Protein NEGATIVE, Urine Glucose (UA) NEGATIVE, Urine Ketones NEGATIVE, Urine Blood NEGATIVE, Urine Nitrite NEGATIVE, Urine Bilirubin NEGATIVE, Urine Urobilinogen 0.2, Urine Leukocyte Esterase NEGATIVE, Urine WBC (Auto) 2, Urine RBC (Auto) 1, Urine Hyaline Casts (Auto) 0, Urine Bacteria (A uto) NEGATIVE, Urine Squamous Epithelial Cells 0, Urine Sperm (Auto) CBC/BMP Laboratory Tests 06/02/20 05:02 FAN DOMINGUEZ MD Jun 02, 2020 14:51
[2020-06-02 15:10] LABS: BASO % 0.1 % (0.0-1.0); EOS # 0.3 10^3/uL (0.0-0.5); EOS % 2.8 % (0.0-3.0); HEMATOCRIT 26.3 % (36.0-47.0); HEMOGLOBIN 8.2 g/dl (12.0-15.5); LYMPH # 0.8 10^3/uL (1.5-5.0); LYMPH % 7.2 % (24.0-44.0); MEAN CORPUSCULAR HEMOGLOBIN 28.8 pg (27.0-33.0); MEAN CORPUSCULAR HGB CONC 31.2 g/dl (32.0-36.5); MEAN CORPUSCULAR VOLUME 92.3 fl (80.0-96.0); MONO # 0.6 10^3/uL (0.0-0.8); MONO % 5.1 % (0.0-5.0); NEUTROPHILS # 9.2 10^3/uL (1.5-8.5); NEUTROPHILS % 83.7 % (36.0-66.0); PLATELET COUNT, AUTOMATED 236 10^3/uL (150-450); RED BLOOD COUNT 2.85 10^6/uL (4.00-5.40)
[2020-06-02 15:20] VITALS: BP 104/60
[2020-06-02 15:39] LABS: ALBUMIN 1.8 GM/DL (3.2-5.2); ALT/SGPT 43 U/L (12-78); BILIRUBIN,TOTAL 0.6 MG/DL (0.2-1.0); BLOOD UREA NITROGEN 18 MG/DL (7-18); CALCIUM LEVEL 7.5 MG/DL (8.8-10.2); CARBON DIOXIDE LEVEL 37 MEQ/L (21-32); CHLORIDE LEVEL 101 MEQ/L (98-107); FERRITIN 766 NG/ML (8-252); GLOMERULAR FILTRATION RATE > 60.0 (>45); GLUCOSE, FASTING 115 MG/DL (70-100); IRON (FE) 22 UG/DL (50-170); MAGNESIUM LEVEL 1.9 MG/DL (1.8-2.4); POTASSIUM SERUM 4.1 MEQ/L (3.5-5.1); SODIUM LEVEL 139 MEQ/L (136-145); TOTAL PROTEIN 4.7 GM/DL (6.4-8.2)
[2020-06-02 15:47] LABS: FOLATE 9.7 NG/ML; VITAMIN B12 LEVEL 688 PG/ML
[2020-06-02] MEDS: RIVAROXABAN 20 MG TAB (XARELTO) PO SCH (18:06)
[2020-06-02 19:53] VITALS: BP 106/58
[2020-06-03] VITALS (12 sets, daily range): BP systolic 100–136; BP diastolic 56–92
[2020-06-03] MEDS: SODIUM CHLORIDE 0.9% INJ 10 ML SYR IV SCH ×2 (04:35→17:53)
[2020-06-03 04:55] LABS: BASO % 0.1 % (0.0-1.0); EOS # 0.3 10^3/uL (0.0-0.5); EOS % 2.8 % (0.0-3.0); HEMATOCRIT 25.1 % (36.0-47.0); HEMOGLOBIN 7.6 g/dl (12.0-15.5); LYMPH # 0.9 10^3/uL (1.5-5.0); LYMPH % 8.6 % (24.0-44.0); MEAN CORPUSCULAR HEMOGLOBIN 27.7 pg (27.0-33.0); MEAN CORPUSCULAR HGB CONC 30.3 g/dl (32.0-36.5); MEAN CORPUSCULAR VOLUME 91.6 fl (80.0-96.0); MONO # 0.6 10^3/uL (0.0-0.8); MONO % 5.5 % (0.0-5.0); NEUTROPHILS # 8.3 10^3/uL (1.5-8.5); PLATELET COUNT, AUTOMATED 209 10^3/uL (150-450); RED BLOOD COUNT 2.74 10^6/uL (4.00-5.40); WHITE BLOOD COUNT 10.1 10^3/uL (4.0-10.0)
[2020-06-03 05:28] LABS: ALBUMIN 1.8 GM/DL (3.2-5.2); ALT/SGPT 36 U/L (12-78); BILIRUBIN,TOTAL 0.7 MG/DL (0.2-1.0); BLOOD UREA NITROGEN 17 MG/DL (7-18); CALCIUM LEVEL 7.5 MG/DL (8.8-10.2); CARBON DIOXIDE LEVEL 35 MEQ/L (21-32); CHLORIDE LEVEL 103 MEQ/L (98-107); CREATININE FOR GFR 0.46 MG/DL (0.55-1.30); GLOMERULAR FILTRATION RATE > 60.0 (>45); GLUCOSE, FASTING 100 MG/DL (70-100); MAGNESIUM LEVEL 1.8 MG/DL (1.8-2.4); SODIUM LEVEL 141 MEQ/L (136-145); TOTAL PROTEIN 4.6 GM/DL (6.4-8.2)
[2020-06-03] MEDS: HumaLOG INSULIN (NovoLOG) PER UNIT SC SCH ×4 (07:30→21:00)
--- NOTE | 2020-06-03 07:40 | REP ---
INDICATION: pneumonia. COMPARISON: 06/02/2020 TECHNIQUE: The technique utilized in obtaining the radiograph has magnified the cardiac silhouette and attenuated the interstitial markings. FINDINGS: There are patchy airspace opacities bilaterally status quo the tip of the PICC line catheter is unchanged remaining in the superior vena cava. There is no change in the osseous structures.. IMPRESSION: No significant change. <Electronically signed by Al Watkins > 06/03/20 0777
[2020-06-03 07:51] LABS: LDH LACTATE DEHYDROGENASE 411 U/L (84-246)
[2020-06-03] MEDS: LEVALBUTEROL 1.25 MG/0.5 ML CONCENTRATE NEB INH SCH ×3 (08:05→20:29)
[2020-06-03] MEDS: amLODIPine 10 MG TAB PO SCH (09:00)
[2020-06-03] MEDS: LACTOBACILLUS ACIDOPHILUS CAP (BACID) PO SCH ×3 (09:10→17:53)
[2020-06-03] MEDS: AMIODARONE 200 MG TAB (PACERONE) PO SCH ×2 (09:11→21:16)
[2020-06-03] MEDS: METOPROLOL TARTRATE 100 MG TAB PO SCH ×2 (09:11→21:15)
[2020-06-03] MEDS: PANTOPRAZOLE 40MG TAB (PROTONIX) PO SCH (09:11)
[2020-06-03 09:33] LABS: INR 1.76; PROTHROMBIN TIME 20.9 SECONDS (12.5-14.3)
[2020-06-03 09:34] LABS: PARTIAL THROMBOPLASTIN TIME 43.7 SECONDS (24.2-38.5)
[2020-06-03] MEDS: K-PHOS NEUTRAL 250MG TABLET (SOD.PHOSPHATE/POT.PHOSPHATE) PO SCH ×3 (09:47→21:16)
[2020-06-03] MEDS: FUROSEMIDE 20MG/2ML VIAL (J1940) IV SCH ×2 (09:47→17:53)
[2020-06-03] MEDS ORDERED: IRON SUCROSE 100MG 5ML VIAL (J1756 PER 1MG) IV SCH (10:45)
--- NOTE | 2020-06-03 12:07 | IPNPDOC ---
Date Seen The patient was seen on 06/03/20. Progress Note SUBJECTIVE: Patient seen and examined at bedside this morning. States doing well overnight, shortness of breath is improved. Continues Vapotherm at 30 L/m at 45% FiO2. SpO2 90%. Patient reports generalized weakness, fatigue. Noted be anemic for past 24 hours. Denies dark stool, blood per rectum, no hemoptysis, denies abdominal pain, chest pain, thigh pain, blurred vision, headache. She is AAO x 3. OBJECTIVE PHYSICAL EXAMINATION: VITAL SIGNS: please see below General: NAD, comfortable, obese, reduced mobility HEENT: PERRLA, EOMI, sclerae clear Neck: supple, normal ROM, no JVD Respiratory: Bilateral decreased breath sounds, noted bilateral crackles at bases CVS: RRR, normal S1, S2, no murmurs Abdo: soft, no masses, no hepatosplenomegaly, BS+, no rebound tenderness Extremities: Bilateral lower extremity nonpitting edema, extremities are noncyanotic, pulses plus MSK: No pain to palpation of thighs, chest wall, no brusing on flanks or back, or thighs. no joint deformities, normal ROM Neuro: no focal neuro deficits, moving all 4 extremities, CN2-12 intact. Strength 5/5 in all 4 extremities. No nystagmus. Psych: calm, cooperative, AAO x 3 LABORATORY DATA, IMAGING STUDIES, MICROBIOLOGY: Please see below. Echocardiogram (05/26/20): 1. Normal global left ventricular systolic function with mild concentric left ventricular hypertrophy. Assessment of the left ventricular diastolic function appeared to be normal. 2. Aortic valve sclerosis with trivial aortic stenosis, but no aortic regurgitation. 3. Isolated mitral annular calcification. Subjectively, the left atrium appeared to be mildly enlarged. 4. Mild tricuspid regurgitation with probably moderate pulmonary hypertension. Subjectively, the right atrium is enlarged. DVT prophylaxis ordered?: Y, on xarelto ASSESSMENT AND PLAN: 65 y/o F with PMH of HTN, obesity, macular degeneration admitted for acute hypoxic respiratory failure 2/2 to community acquired PNA, recently extubated on 05/24/20, showing improvement in oxygen requirement. Downgraded to PCU 05/30/20. negative fluid balance ~-1200. PROBLEMS: # Acute hypoxic respiratory failure 2/2 to community acquired PNA, pulmonary edema. Cannot r/o acute interstitial PNA, Obesity hypoventilation syndrome as contributing factors to hypoxia -s/p bronch 05/17/20, remained ventilated and later extubated successfully on 05/24/20 -slow improvement on vapotherm. 30 LPM at FiO2 45%. - Vancomycin (2 days), Ceftriaxone (14 days), Azithromycin (10 days), PO prednisone, Duoneb ATC, lasix daily. - Completed Fluconazole for 10 days (stopped 05/29/20) - abx stopped as procal diminished - C/w acapella Q2 H while awake - Chest PT - lasix 20 mg IV bid - weight trended down 135.9 kg (down from 148.3 kg) #Hypotension: - BP trending low, 100/56 - reduced dose of lasix 20 mg IV, now BID - c/w metoprolol 100 mg BID given persistent RVR - plan to titrate down BB # Atrial fibrillation with RVR, new this admission - S/p digoxin, four amiodarone boluses - Cardiology recs reviewed and appreciated. - 2D echo as above, globally wnl - per Dr. Hartley, amiodarone 400 mg bid for 1 week (through 06/05), with plan to reduce to 200 mg daily (plan to continue amiodarone for approx 3 months). Consider reducing dose of metoprolol in time, but not now. - DC xarelto given low Hgb. Cw CCB and BB BID. - Tele, afib. #Acute anemia: - Hgb 7.5 (trended down from 11.3 in 3 days) - fecal occult blood negative - no signs of bleeding on physical exam (no brusing, no MSK pain, neuro intact) - CXR unchanged - UA no hematuria - LDH 411. Haptoglobin pending. Retic pending. - Iron level 22. - Discussed with Dr. Montgomery (heme), rec venofer infusion 500 mg daily x 2 days - if continues to trend down, heme consult - given fatigue, will transfuse for symptomatic anemia - ordered 1 unit pRBC on 06/03/20 # HTN -C/w CCB, lasix, BB # Obesity -Complicates care -BMI 59.2 -Optimize nutrition #Protein malnutrition -Low albumin -Appreciate full nutrition assessment # GI px -PPI #DVT px: hold xarelto. SCDs. TEDs. DISPOSITION: working with PT, still unable to stand. VS, I&O, 24H, [facility] Vital Signs/I&O Vital Signs Date Time Temp Pulse Resp B/P (MAP) Pulse Ox O2 Delivery O2 Flow Rate FiO2 06/03/20 09:25 90 HVNI-Vapotherm 30.0 45 06/03/20 09:11 118 100/56 06/03/20 08:00 98.8 22 I&O- Last 24 Hours up to 6 AM 06/03/20 06:00 Intake Total 2050 ml Output Total 1450 ml Balance 600 ml Laboratory Data 24H LABS Laboratory Tests 2 06/02/20 13:24: Urine Color YELLOW, Urine Appearance CLEAR, Urine pH 7.0, Urine Specific [place] 1.012, Urine Protein NEGATIVE, Urine Glucose (UA) NEGATIVE, Urine Ketones NEGATIVE, Urine Blood NEGATIVE, Urine Nitrite NEGATIVE, Urine Bilirubin NEGATIVE, Urine Urobilinogen 0.2, Urine Leukocyte Esterase NEGATIVE, Urine WBC (Auto) 2, Urine RBC (Auto) 1, Urine Hyaline Casts (Auto) 0, Urine Bacteria (Auto) NEGATIVE, Urine Squamous Epithelial Cells 0, Urine Sperm (Auto) 06/02/20 14:54: Immature Granulocyte % (Auto) 1.1, Neutrophils (%) (Auto) 83.7H, Lymphocytes (%) (Auto) 7.2L, Monocytes (%) (Auto) 5.1H, Eosinophils (%) (Auto) 2.8, Basophils (%) (Auto) 0.1, Neutrophils # (Auto) 9.2H, Lymphocytes # (Auto) 0.8L, Monocytes # (Auto) 0.6, Eosinophils # (Auto) 0.3, Basophils # (Auto) 0.0, Nucleated Red Blood Cells % (auto) 0.0, Anion Gap 1L, Glomerular Filtration Rate > 60.0, Lactic Acid Level 1.3, Calcium Level 7.5L, Magnesium Level 1.9, Iron Level 22L, Ferritin 766H, Total Bilirubin 0.6, Aspartate Amino Transf (AST/SGOT) 29, Alanine Aminotransferase (ALT/SGPT) 43, Alkaline Phosphatase 102, Ammonia 26, Total Protein 4.7L, Albumin 1.8L, Albumin/Globulin Ratio 0.6L, Vitamin B12 Level 688, Folate 9.7 06/02/20 17:10: Bedside Glucose (Misc Panel) 110 06/02/20 20:36: Bedside Glucose (Misc Panel) 181H 06/03/20 04:40: Immature Granulocyte % (Auto) 1.0, Neutrophils (%) (Auto) 82.0H, Lymphocytes (%) (Auto) 8.6L, Monocytes (%) (Auto) 5.5H, Eosinophils (%) (Auto) 2.8, Basophils (%) (Auto) 0.1, Neutrophils # (Auto) 8.3, Lymphocytes # (Auto) 0.9L, Monocytes # (Auto) 0.6, Eosinophils # (Auto) 0.3, Basophils # (Auto) 0.0, Reticulocyte # (auto) 85.6H, Nucleated Red Blood Cells % (auto) 0.0, Percent Reticulocyte Count 3.1H, Reticulocyte Hemoglobin Equivalent 32.9, Anion Gap 3L, Glomerular Filtration Rate > 60.0, Calcium Level 7.5L, Magnesium Level 1.8, Total Bilirubin 0.7, Aspartate Amino Transf (AST/SGOT) 25, Alanine Aminotransferase (ALT/SGPT) 36, Alkaline Phosphatase 97, Lactate Dehydrogenase 411H, Total Protein 4.6L, Albumin 1.8L, Albumin/Globulin Ratio 0.6L 06/03/20 08:19: Prothrombin Time 20.9H, Prothromb Time International Ratio 1.76, Activated Partial Thromboplast Time 43.7H CBC/BMP Laboratory Tests 06/02/20 14:54 06/03/20 04:40 Microbiology Microbiology 06/02/20 Stool Occult Blood (JESSI) - Final, Complete FAN DOMINGUEZ MD Jun 03, 2020 12:07
[2020-06-03] MEDS: IRON SUCROSE 500 MG in NS 250 ML IV SCH (14:29)
[2020-06-03] MEDS: ACETAMINOPHEN 325 MG/10.15 ML UDC GT PRN (17:53)
[2020-06-03 19:20] LABS: HEMATOCRIT 30.7 % (36.0-47.0)
[2020-06-03 19:41] LABS: HEMOGLOBIN 9.6 g/dl (12.0-15.5)
[2020-06-03] MEDS: RAMELTEON 8 MG TAB (ROZEREM) PO PRN (21:16)
[2020-06-04] VITALS (7 sets, daily range): BP systolic 100–133; BP diastolic 48–76
[2020-06-04] MEDS: SODIUM CHLORIDE 0.9% INJ 10 ML SYR IV SCH ×2 (06:14→17:07)
[2020-06-04 06:38] LABS: BASO % 0.2 % (0.0-1.0); EOS # 0.2 10^3/uL (0.0-0.5); EOS % 2.4 % (0.0-3.0); HEMOGLOBIN 8.5 g/dl (12.0-15.5); LYMPH # 0.7 10^3/uL (1.5-5.0); LYMPH % 7.3 % (24.0-44.0); MEAN CORPUSCULAR HEMOGLOBIN 28.4 pg (27.0-33.0); MEAN CORPUSCULAR HGB CONC 31.5 g/dl (32.0-36.5); MEAN CORPUSCULAR VOLUME 90.3 fl (80.0-96.0); MONO # 0.4 10^3/uL (0.0-0.8); MONO % 4.7 % (0.0-5.0); NEUTROPHILS # 7.6 10^3/uL (1.5-8.5); NEUTROPHILS % 84.2 % (36.0-66.0); PLATELET COUNT, AUTOMATED 184 10^3/uL (150-450); RED BLOOD COUNT 2.99 10^6/uL (4.00-5.40)
[2020-06-04] MEDS: LEVALBUTEROL 1.25 MG/0.5 ML CONCENTRATE NEB INH SCH ×3 (07:13→19:13)
[2020-06-04 07:17] LABS: ALBUMIN 1.8 GM/DL (3.2-5.2); ALT/SGPT 32 U/L (12-78); BILIRUBIN,TOTAL 1.1 MG/DL (0.2-1.0); BLOOD UREA NITROGEN 13 MG/DL (7-18); CALCIUM LEVEL 7.6 MG/DL (8.8-10.2); CARBON DIOXIDE LEVEL 37 MEQ/L (21-32); CHLORIDE LEVEL 100 MEQ/L (98-107); CREATININE FOR GFR 0.45 MG/DL (0.55-1.30); GLOMERULAR FILTRATION RATE > 60.0 (>45); GLUCOSE, FASTING 116 MG/DL (70-100); MAGNESIUM LEVEL 1.6 MG/DL (1.8-2.4); POTASSIUM SERUM 3.4 MEQ/L (3.5-5.1); SODIUM LEVEL 140 MEQ/L (136-145); TOTAL PROTEIN 4.6 GM/DL (6.4-8.2)
[2020-06-04] MEDS ORDERED: POTASSIUM CHLORIDE 10 MEQ SR TABLET PO ONE (07:30)
[2020-06-04] MEDS: HumaLOG INSULIN (NovoLOG) PER UNIT SC SCH ×4 (07:30→22:08)
[2020-06-04] MEDS: FUROSEMIDE 20MG/2ML VIAL (J1940) IV SCH ×2 (08:25→17:07)
[2020-06-04] MEDS: PANTOPRAZOLE 40MG TAB (PROTONIX) PO SCH (08:25)
[2020-06-04] MEDS: K-PHOS NEUTRAL 250MG TABLET (SOD.PHOSPHATE/POT.PHOSPHATE) PO SCH ×3 (08:25→22:10)
[2020-06-04] MEDS: AMIODARONE 200 MG TAB (PACERONE) PO SCH ×2 (08:26→22:09)
[2020-06-04] MEDS: LACTOBACILLUS ACIDOPHILUS CAP (BACID) PO SCH ×3 (08:26→17:06)
[2020-06-04] MEDS: METOPROLOL TARTRATE 100 MG TAB PO SCH ×2 (08:28→22:09)
[2020-06-04] MEDS: amLODIPine 10 MG TAB PO SCH (08:41)
[2020-06-04] MEDS: IRON SUCROSE 500 MG in NS 250 ML IV SCH (09:01)
--- NOTE | 2020-06-04 09:06 | REP ---
INDICATION: pneumonia. COMPARISON: 06/03/2020 FINDINGS: Bilateral patchy airspace opacities are noted status quo. The tip of the right-sided PICC line catheter is unchanged. The cardiomediastinal silhouette is unchanged. The osseous structures are unchanged. IMPRESSION: No significant change. <Electronically signed by Al Watkins > 06/04/20 0903
--- NOTE | 2020-06-04 10:17 | IPNPDOC ---
Date Seen The patient was seen on 06/04/20. Progress Note SUBJECTIVE: Patient seen and examined at bedside this morning. States doing well overnight, shortness of breath is improved. Continues Vapotherm at 30 L/m at 55% FiO2, unable to wean lower. SpO2 92%. Patient is alert and oriented 3. She reports improvement in fatigue after blood transfusion yesterday evening . OBJECTIVE PHYSICAL EXAMINATION: VITAL SIGNS: please see below General: NAD, comfortable, obese, reduced mobility HEENT: PERRLA, EOMI, sclerae clear Neck: supple, normal ROM, no JVD Respiratory: Bilateral decreased breath sounds, noted bilateral crackles at bases CVS: RRR, normal S1, S2, no murmurs Abdo: soft, no masses, no hepatosplenomegaly, BS+, no rebound tenderness Extremities: Bilateral lower extremity nonpitting edema, extremities are noncyanotic, pulses plus MSK: No pain to palpation of thighs, chest wall, no brusing on flanks or back, or thighs. no joint deformities, normal ROM Neuro: no focal neuro deficits, moving all 4 extremities, CN2-12 intact. Strength 5/5 in all 4 extremities. No nystagmus. Psych: calm, cooperative, AAO x 3 LABORATORY DATA, IMAGING STUDIES, MICROBIOLOGY: Please see below. CXR (06/04/20): Bilateral patchy airspace opacities are noted status quo. The tip of the right- sided PICC line catheter is unchanged. The cardiomediastinal silhouette is unchanged. The osseous structures are unchanged. IMPRESSION: No significant change. Echocardiogram (05/26/20): 1. Normal global left ventricular systolic function with mild concentric left ventricular hypertrophy. Assessment of the left ventricular diastolic function appeared to be normal. 2. Aortic valve sclerosis with trivial aortic stenosis, but no aortic regurgitation. 3. Isolated mitral annular calcification. Subjectively, the left atrium appeared to be mildly enlarged. 4. Mild tricuspid regurgitation with probably moderate pulmonary hypertension. Subjectively, the right atrium is enlarged. DVT prophylaxis ordered?: Y, on xarelto ASSESSMENT AND PLAN: 65 y/o F with PMH of HTN, obesity, macular degeneration admitted for acute hypoxic respiratory failure 2/2 to community acquired [facility], recently extubated on 05/24/20, showing improvement in oxygen requirement. Downgraded to PCU 05/30/20. negative fluid balance ~-1200. PROBLEMS: # Acute hypoxic respiratory failure 2/2 to community acquired PNA, pulmonary edema. Cannot r/o acute interstitial PNA, Obesity hypoventilation syndrome as contributing factors to hypoxia -s/p bronch 05/17/20, remained ventilated and later extubated successfully on 05/24/20 -slow improvement on vapotherm. 30 LPM at FiO2 45%. - Vancomycin (2 days), Ceftriaxone (14 days), Azithromycin (10 days), PO prednisone, Duoneb ATC, lasix daily. - Completed Fluconazole for 10 days (stopped 05/29/20) - abx stopped as procal diminished - C/w acapella Q2 H while awake encouraged to use - Chest PT - No change in x-ray on 06/04/20 - lasix 20 mg IV bid - weight trended down 135.9 kg (down from 148.3 kg) #Hypotension: - BP trending low, 100/56 - reduced dose of lasix 20 mg IV, now BID - c/w metoprolol 100 mg BID - plan to titrate down BB # Atrial fibrillation with RVR, new this admission - S/p digoxin, four amiodarone boluses - Cardiology recs reviewed and appreciated. - 2D echo as above, globally wnl - per Dr. Hartley, amiodarone 400 mg bid for 1 week (through 06/05), with plan to reduce to 200 mg daily (plan to continue amiodarone for approx 3 months). Consider reducing dose of metoprolol in time, but not now. - DC xarelto given low Hgb. Cw CCB and BB BID. - Tele, afib. #Acute anemia: - Hgb 7.5 (trended down from 11.3 in 3 days) - fecal occult blood negative - no signs of bleeding on physical exam (no brusing, no MSK pain, neuro intact) - CXR unchanged - UA no hematuria - LDH 411. Haptoglobin pending. Retic pending. - Iron level 22. - Discussed with Dr. Montgomery (heme), rec venofer infusion 500 mg daily x 2 days - if continues to trend down, heme consult - given fatigue, will transfuse for symptomatic anemia - s/p 1 unit pRBC, Hgb increasd 7.6 to 9.6, reduced to 8.5 this morning - hematology consult. # HTN -C/w CCB, lasix, BB # Obesity -Complicates care -BMI 59.2 -Optimize nutrition #Protein malnutrition -Low albumin -Appreciate full nutrition assessment # GI px -PPI #DVT px: hold xarelto. SCDs. TEDs. DISPOSITION: working with PT, still unable to stand. VS, I&O, 24H, Fishbone Vital Signs/I&O Vital Signs Date Time Temp Pulse Resp B/P (MAP) Pulse Ox O2 Delivery O2 Flow Rate FiO2 06/04/20 08:41 92 133/75 06/04/20 08:28 91 HVNI-Vapotherm 30.0 55 06/04/20 07:47 98.1 18 I&O- Last 24 Hours up to 6 AM 06/04/20 06:00 Intake Total 1711 ml Output Total 2900 ml Balance -1189 ml Laboratory Data 24H LABS Laboratory Tests 2 06/03/20 11:55: Bedside Glucose (Misc Panel) 109 06/03/20 17:02: Bedside Glucose (Misc Panel) 120H 06/03/20 20:39: Bedside Glucose (Misc Panel) 123H 06/04/20 06:17: Immature Granulocyte % (Auto) 1.2, Neutrophils (%) (Auto) 84.2H, Lymphocytes (%) (Auto) 7.3L, Monocytes (%) (Auto) 4.7, Eosinophils (%) (Auto) 2.4, Basophils (%) (Auto) 0.2, Neutrophils # (Auto) 7.6, Lymphocytes # (Auto) 0.7L, Monocytes # (Auto) 0.4, Eosinophils # (Auto) 0.2, Basophils # (Auto) 0.0, Nucleated Red Blood Cells % (auto) 0.0, Anion Gap 3L, Glomerular Filtration Rate > 60.0, Calcium Level 7.6L, Magnesium Level 1.6L, Total Bilirubin 1.1#H, Aspartate Amino Transf (AST/SGOT) 19, Alanine Aminotransferase (ALT/SGPT) 32, Alkaline Phosphatase 95, Total Protein 4.6L, Albumin 1.8L, Albumin/Globulin Ratio 0.6L CBC/BMP Laboratory Tests 06/03/20 18:49 06/04/20 06:17 Microbiology Microbiology 06/03/20 Stool Occult Blood (JESSI) - Final, Complete 06/02/20 Stool Occult Blood (JESSI) - Final, Complete FAN DOMINGUEZ MD Jun 04, 2020 10:17
--- NOTE | 2020-06-04 14:37 | CR.PDOC ---
General Date of Consultation: Jun 04, 2020 Consultation REASON FOR CONSULTATION/CHIEF COMPLAINT: [anemia ]. HISTORY OF PRESENT ILLNESS: [This is a 65 year old lady. She was admitted to the hospital with bilateral lung infiltrates and acute renal failure. At the time of admission she had anemia. Since admission her bun has improved. She continues to have lung infiltrates. She has anemia requiring transfusion. ALLERGIES: Please see below. HOME MEDICATIONS: Please see below. PAST MEDICAL HISTORY: 1. [hypertension ]. 2. [ 14 Para 13 one miscarriage ]. PAST SURGICAL HISTORY: 1. [denies ] 2. FAMILY HISTORY: Father: old age Mother: [ old age ] Siblings: Children: healthy Hereditary Diseases: Unexpected deaths due to medical reasons: SOCIAL HISTORY: Marital status and/or living arrangements: Children: Employment: Tobacco use:[denies ] ETOH: [denies ] Illicit drug use: [denies ] IV drug use: Other relevant social factors: REVIEW OF SYSTEMS: CONSTITUTIONAL: [dyspnea ]. HEENT: [no headaches , no blurred vision ,normal hearing ]. CARDIOVASCULAR: [recent onset atrial fibrillation ]. RESPIRATORY: [dyspnea]. GENITOURINARY: [denies having any problem ]. MUSCULOSKELETAL: . GASTROINTESTINAL: [one loose stool while in the hospital , ]. SKIN: . NEUROLOGICAL: . PSYCHIATRIC: . ENDOCRINE: . HEMATOLOGIC/LYMPHATIC: . ALLERGIC/IMMUNOLOGIC: . PHYSICAL EXAMINATION: VITAL SIGNS: Please see below. GENERAL APPEARANCE: awake ands alert wearing oxygen . HEENT: [normal ]. RESPIRATORY: bilateral breath sounds ]. CARDIOVASCULAR: [Atrial fibrillation on the monitor ABDOMEN: [soft non tender ]. EXTREMITIES: [no pedal edema ]. NEUROLOGICAL: . PSYCHIATRIC: . LABORATORY DATA: Please see below. ASSESSMENT/PLAN: 1. [anemia ]. 2. [pneumonia 3. Acute renal failure . a this time her kidney function has improved. She has a good reticulocyte count. No obvious evidence of active bleed. She may been bouncing back from her acute illness. 4. Atrial fibrillation 5. low magnesium Suggest serial CBC . transfuse if her hemoglobin less than 7-grams or the patient is symptomatic. She has slight elevation of her bilirubin . repeat bilirubin study on 06/05. Vital Signs/I&O Vital Signs Date Time Temp Pulse Resp B/P (MAP) Pulse Ox O2 Delivery O2 Flow Rate FiO2 11/15/20 13:37 92 HVNI-Vapotherm 30.0 50 06/04/20 11:41 97.8 71 18 100/60 (73) I&O- Last 24 Hours up to 6 AM 06/04/20 06:00 Intake Total 1711 ml Output Total 2900 ml Balance -1189 ml Laboratory Data Labs 24H Laboratory Tests 2 06/03/20 17:02: Bedside Glucose (Misc Panel) 120H 06/03/20 20:39: Bedside Glucose (Misc Panel) 123H 06/04/20 06:17: Immature Granulocyte % (Auto) 1.2, Neutrophils (%) (Auto) 84.2H, Lymphocytes (%) (Auto) 7.3L, Monocytes (%) (Auto) 4.7, Eosinophils (%) (Auto) 2.4, Basophils (%) (Auto) 0.2, Neutrophils # (Auto) 7.6, Lymphocytes # (Auto) 0.7L, Monocytes # (Auto) 0.4, Eosinophils # (Auto) 0.2, Basophils # (Auto) 0.0, Nucleated Red Blood Cells % (auto) 0.0, Anion Gap 3L, Glomerular Filtration Rate > 60.0, Calcium Level 7.6L, Magnesium Level 1.6L, Total Bilirubin 1.1#H, Aspartate Amino Transf (AST/SGOT) 19, Alanine Aminotransferase (ALT/SGPT) 32, Alkaline Phosphatase 95, Total Protein 4.6L, Albumin 1.8L, Albumin/Globulin Ratio 0.6L 06/04/20 11:45: Bedside Glucose (Misc Panel) 140H CBC/BMP Laboratory Tests 06/03/20 18:49 06/04/20 06:17 Microbiology Microbiology 06/03/20 Stool Occult Blood (JESSI) - Final, Complete 06/02/20 Stool Occult Blood (JESSI) - Final, Complete Allergies Coded Allergies: No Known Allergies (Unverified , 05/15/20) PER [facility] Home Medications Scheduled Ascorbic Acid (Vitamin C) 250 Mg Tablet, 250 MG PO DAILY, (Reported) C,E,Zinc,Copper 11/[id number]/Lut (Ocuvite Adult 50 Plus Softgel) 1 Each Capsule, 1 CAP PO DAILY, (Reported) Garlic (Garlic) 500 Mg Capsule, 500 MG PO DAILY, (Reported) Metoprolol Tartrate (Metoprolol Tartrate) 50 Mg Tablet, 50 MG PO BID, (Reported) JAMAL ELISE MD Jun 04, 2020 14:33
[2020-06-04] MEDS: ASCORBIC ACID 500 MG TAB PO SCH (14:39)
[2020-06-04] MEDS: FOLIC ACID 1 MG TAB PO SCH (14:39)
[2020-06-04 16:03] LABS: HEMATOCRIT 34.2 % (36.0-47.0); HEMOGLOBIN 10.4 g/dl (12.0-15.5)
[2020-06-04] MEDS: ACETAMINOPHEN 325 MG/10.15 ML UDC GT PRN (16:33)
[2020-06-04 21:01] LABS: ABG HCO3 33.9 MEQ/L (22.0-26.0); ABG PARTIAL PRESSURE CO2 43.3 mmHg (35.0-45.0); ABG PARTIAL PRESSURE O2 69.9 mmHg (75.0-100.0); ABG STANDARD HCO3 33.7 MEQ/L (22.0-26.0); ABG TOTAL CO2 35.3 MEQ/L (23.0-31.0); ABG pH (ARTERIAL) 7.512 UNITS (7.350-7.450)
[2020-06-04] MEDS ORDERED: ISOVUE-370 76% 100ML VIAL As Ordered ONE (21:05)
--- NOTE | 2020-06-04 21:35 | REPVR ---
PROCEDURE INFORMATION: Exam: CT Angiography Chest With Contrast Exam date and time: 06/04/2020 9:09 PM Age: 65 years old Clinical indication: Other: Hypoxia; Additional info: Worsening hypoxia TECHNIQUE: Imaging protocol: Computed tomographic angiography of the chest with intravenous contrast. 3D rendering (Not supervised by radiologist): MIP and/or 3D reconstructed images were created by the technologist. Radiation optimization: All CT scans at this facility use at least one of these dose optimization techniques: automated exposure control; mA and/or kV adjustment per patient size (includes targeted exams where dose is matched to clinical indication); or iterative reconstruction. Contrast material: ISOVUE 370; Contrast volume: 75 ml; Contrast route: INTRAVENOUS (IV); COMPARISON: CT ANGIO CHEST - OUTSIDE PRIOR 05/12/2020 12:00 AM FINDINGS: Tubes, catheters and devices: Distal tip of a right PICC line positioned in the superior vena cava. Pulmonary arteries: Normal. No pulmonary emboli. Aorta: Unremarkable. No aortic aneurysm. No aortic dissection. 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 Lungs: Patchy diffuse consolidation noted in the right lung. This has progressed since previous. Patchy nodular crazy paving opacities in the left lung with areas of consolidation in the left upper lobe and left lower lobe. This has progressed since previous. Calcified granuloma left lower lobe. The the Pleural space: Small right pleural effusion. Heart: There is moderate to severe cardiomegaly. Lymph nodes: Calcified lymph nodes right hilum. Spleen: Calcifications within the spleen. Bones/joints: Unremarkable. No acute fracture. Soft tissues: Unremarkable. IMPRESSION: 1. No acute pulmonary embolism. 2. Progressive diffuse consolidation in both lungs with new small right pleural effusion 3. Moderate to severe cardiomegaly. Electronically signed by: Swati Mazariegos On 06/04/2020 21:35:23 PM
[2020-06-04] MEDS: RAMELTEON 8 MG TAB (ROZEREM) PO PRN (22:08)
[2020-06-04 23:28] LABS: BASO % 0.2 % (0.0-1.0); EOS # 0.2 10^3/uL (0.0-0.5); EOS % 2.1 % (0.0-3.0); HEMATOCRIT 26.4 % (36.0-47.0); LYMPH # 0.7 10^3/uL (1.5-5.0); LYMPH % 7.1 % (24.0-44.0); MEAN CORPUSCULAR HEMOGLOBIN 28.1 pg (27.0-33.0); MEAN CORPUSCULAR HGB CONC 31.1 g/dl (32.0-36.5); MEAN CORPUSCULAR VOLUME 90.4 fl (80.0-96.0); MONO # 0.4 10^3/uL (0.0-0.8); MONO % 3.9 % (0.0-5.0); NEUTROPHILS # 8.9 10^3/uL (1.5-8.5); NEUTROPHILS % 85.7 % (36.0-66.0); PLATELET COUNT, AUTOMATED 164 10^3/uL (150-450); RED BLOOD COUNT 2.92 10^6/uL (4.00-5.40); WHITE BLOOD COUNT 10.3 10^3/uL (4.0-10.0)
[2020-06-04 23:32] LABS: HEMOGLOBIN 8.2 g/dl (12.0-15.5)
[2020-06-04] MEDS: RIVAROXABAN 20 MG TAB (XARELTO) PO SCH (23:45)
[2020-06-04] MEDS: PIPERACILLIN/TAZOBACTAM SOD 4.5 GM in D5W MINI-BAG PLUS 50 ML IV SCH (23:45)
[2020-06-04 23:48] LABS: ALBUMIN 1.8 GM/DL (3.2-5.2); ALT/SGPT 30 U/L (12-78); BLOOD UREA NITROGEN 14 MG/DL (7-18); CALCIUM LEVEL 7.2 MG/DL (8.8-10.2); CARBON DIOXIDE LEVEL 34 MEQ/L (21-32); CHLORIDE LEVEL 100 MEQ/L (98-107); CREATININE FOR GFR 0.48 MG/DL (0.55-1.30); GLOMERULAR FILTRATION RATE > 60.0 (>45); GLUCOSE, FASTING 130 MG/DL (70-100); LDH LACTATE DEHYDROGENASE 377 U/L (84-246); MAGNESIUM LEVEL 1.4 MG/DL (1.8-2.4); POTASSIUM SERUM 3.3 MEQ/L (3.5-5.1); SODIUM LEVEL 141 MEQ/L (136-145); TOTAL PROTEIN 4.6 GM/DL (6.4-8.2)
[2020-06-05] VITALS (18 sets, daily range): BP systolic 100–145; BP diastolic 51–98
[2020-06-05] MEDS ORDERED: POTASSIUM CHLORIDE 10 MEQ SR TABLET PO ONE (00:30)
[2020-06-05] MEDS: MAG SULF 1GM/100ML (MAG RUN) 1 GM in IV 1 EA IV SCH ×2 (00:48→01:55)
[2020-06-05] MEDS: PIPERACILLIN/TAZOBACTAM SOD 4.5 GM in D5W MINI-BAG PLUS 50 ML IV SCH ×4 (04:45→23:00)
[2020-06-05] MEDS: SODIUM CHLORIDE 0.9% INJ 10 ML SYR IV SCH ×2 (04:46→17:51)
[2020-06-05 05:06] LABS: BASO % 0.2 % (0.0-1.0); EOS # 0.2 10^3/uL (0.0-0.5); EOS % 1.7 % (0.0-3.0); HEMATOCRIT 28.5 % (36.0-47.0); LYMPH # 0.7 10^3/uL (1.5-5.0); LYMPH % 5.8 % (24.0-44.0); MEAN CORPUSCULAR HEMOGLOBIN 28.6 pg (27.0-33.0); MEAN CORPUSCULAR HGB CONC 31.6 g/dl (32.0-36.5); MEAN CORPUSCULAR VOLUME 90.5 fl (80.0-96.0); MONO # 0.4 10^3/uL (0.0-0.8); MONO % 3.6 % (0.0-5.0); NEUTROPHILS # 10.6 10^3/uL (1.5-8.5); PLATELET COUNT, AUTOMATED 182 10^3/uL (150-450); RED BLOOD COUNT 3.15 10^6/uL (4.00-5.40)
[2020-06-05 05:32] LABS: ABG BASE EXCESS 9.9 (-2.0-2.0); ABG O2 SATURATION 89.9 % (95.0-99.0); ABG PARTIAL PRESSURE CO2 49.7 mmHg (35.0-45.0); ABG PARTIAL PRESSURE O2 55.5 mmHg (75.0-100.0); ABG STANDARD HCO3 33.5 MEQ/L (22.0-26.0); ABG TOTAL CO2 36.5 MEQ/L (23.0-31.0); ABG pH (ARTERIAL) 7.465 UNITS (7.350-7.450)
[2020-06-05 05:36] LABS: ALBUMIN 1.9 GM/DL (3.2-5.2); ALT/SGPT 33 U/L (12-78); BILIRUBIN,TOTAL 1.1 MG/DL (0.2-1.0); BLOOD UREA NITROGEN 13 MG/DL (7-18); CALCIUM LEVEL 7.8 MG/DL (8.8-10.2); CARBON DIOXIDE LEVEL 36 MEQ/L (21-32); CHLORIDE LEVEL 100 MEQ/L (98-107); CK-MB VALUE MASS < 1.0 NG/ML (<3.6); CPK CREATINE PHOSPHOKINASE 81 U/L (26-192); CREATININE FOR GFR 0.47 MG/DL (0.55-1.30); GLOMERULAR FILTRATION RATE > 60.0 (>45); GLUCOSE, FASTING 131 MG/DL (70-100); MAGNESIUM LEVEL 2.1 MG/DL (1.8-2.4); MB/CK RELATIVE INDEX 1.23 (< OR =4); NT-PRO BNP 2654 PG/ML (<125); POTASSIUM SERUM 3.8 MEQ/L (3.5-5.1); SODIUM LEVEL 140 MEQ/L (136-145); TOTAL PROTEIN 5.1 GM/DL (6.4-8.2); TROPONIN I < 0.02 NG/ML (< 0.10)
--- NOTE | 2020-06-05 05:43 | REPVR ---
PROCEDURE INFORMATION: Exam: XR Chest, 1 View Exam date and time: 06/05/2020 5:24 AM Age: 65 years old Clinical indication: Other: Hypoxia TECHNIQUE: Imaging protocol: XR of the chest Views: 1 view. COMPARISON: 1. CR Chest, 1 view 06/04/2020 8:06 AM 2. TX - Chest, 1 view 06/02/2020 10:14:28 AM FINDINGS: Limitations: The patient is rotated. Tubes, catheters and devices: There is a PICC line catheter from the right upper extremity with the tip in the SVC. Lungs: Bilateral patchy consolidation of the lungs with relative sparing of the left upper lobe is grossly unchanged from the most recent prior exam of June 04, 2020, but appears more densely consolidated than on the prior exam of June 02, 2020. Pleural space: No definite pleural effusions identified. Heart/Mediastinum: The heart size is difficult to assess due to the bilateral lung opacities. It appears grossly unchanged and may be mildly enlarged. Bones/joints: Degenerative endplate changes are seen at multiple levels in the visualized spine. IMPRESSION: No significant change from the most recent prior exam when allowing for differences in positioning of the patient. The consolidation has progressed compared to June 02, 2020. Electronically signed by: Cherry Bermudez On 06/05/2020 05:42:42 AM
[2020-06-05] MEDS: LEVALBUTEROL 1.25 MG/0.5 ML CONCENTRATE NEB INH SCH ×3 (07:30→19:54)
[2020-06-05] MEDS: FOLIC ACID 1 MG TAB PO SCH (08:46)
[2020-06-05] MEDS: LACTOBACILLUS ACIDOPHILUS CAP (BACID) PO SCH ×3 (08:46→17:50)
[2020-06-05] MEDS: HumaLOG INSULIN (NovoLOG) PER UNIT SC SCH ×4 (08:46→20:51)
[2020-06-05] MEDS: K-PHOS NEUTRAL 250MG TABLET (SOD.PHOSPHATE/POT.PHOSPHATE) PO SCH ×3 (08:47→20:50)
[2020-06-05] MEDS: METOPROLOL TARTRATE 100 MG TAB PO SCH ×2 (08:47→20:50)
[2020-06-05] MEDS: AMIODARONE 200 MG TAB (PACERONE) PO SCH ×2 (08:47→20:50)
[2020-06-05] MEDS: PANTOPRAZOLE 40MG TAB (PROTONIX) PO SCH (08:47)
[2020-06-05] MEDS: ASCORBIC ACID 500 MG TAB PO SCH (08:48)
[2020-06-05] MEDS: methylPREDNISolone 125MG 2ML VIAL IV SCH ×2 (08:48→16:25)
[2020-06-05] MEDS: amLODIPine 10 MG TAB PO SCH (08:50)
--- NOTE | 2020-06-05 11:36 | IPNPDOC ---
Date Seen The patient was seen on 06/05/20. Progress Note SUBJECTIVE: Patient seen and examined at bedside this morning. Overnight she had to be transferred to ICU for increased oxygen requirement FiO2 on Vapotherm 100% and 60 L/m. CTA PE was performed overnight for concern over developing pulmonary embolism, no PE was admitted for however progression of pneumonia was noted. She denies chest pain, palpitations, but does have shortness of breath. She denies true fevers and chills. She was afebrile overnight, but did have fever on June 04 at around 4:30 PM OBJECTIVE PHYSICAL EXAMINATION: VITAL SIGNS: please see below General: NAD, comfortable, obese, reduced mobility HEENT: PERRLA, EOMI, sclerae clear Neck: supple, normal ROM, no JVD Respiratory: Bilateral decreased breath sounds, noted bilateral crackles at bases CVS: RRR, normal S1, S2, no murmurs Abdo: soft, no masses, no hepatosplenomegaly, BS+, no rebound tenderness Extremities: Bilateral lower extremity nonpitting edema, extremities are noncyanotic, pulses plus MSK: No pain to palpation of thighs, chest wall, no brusing on flanks or back, or thighs. no joint deformities, normal ROM Neuro: no focal neuro deficits, moving all 4 extremities, CN2-12 intact. Strength 5/5 in all 4 extremities. No nystagmus. Psych: calm, cooperative, AAO x 3 ECHO: Echocardiogram (05/26/20): 1. Normal global left ventricular systolic function with mild concentric left ventricular hypertrophy. Assessment of the left ventricular diastolic function appeared to be normal. 2. Aortic valve sclerosis with trivial aortic stenosis, but no aortic regurgitation. 3. Isolated mitral annular calcification. Subjectively, the left atrium appeared to be mildly enlarged. 4. Mild tricuspid regurgitation with probably moderate pulmonary hypertension. Subjectively, the right atrium is enlarged. LABORATORY DATA, IMAGING STUDIES, MICROBIOLOGY: Please see below. CTA/PE (06/04/2020): 1. No acute pulmonary embolism. 2. Progressive diffuse consolidation in both lungs with new small right pleural effusion 3. Moderate to severe cardiomegaly. CXR (06/05/20): IMPRESSION: No significant change from the most recent prior exam when allowing for differences in positioning of the patient. The consolidation has progressed compared to June 02, 2020. DVT prophylaxis ordered?: Anticoagulation with xarelto. ASSESSMENT AND PLAN: 65 y/o F with PMH of HTN, obesity, macular degeneration admitted for acute hypoxic respiratory failure 2/2 to community acquired PNA, recently extubated on 05/24/20, showing improvement in oxygen requirement. Downgraded to PCU 05/30/20. Patient developed increased oxygen requirement epigastric back to ICU. CT did not show acute pulmonary embolism. Dr. James from pulmonology was reconsulted. 2. Formula conversation with the patient and her family, decision for DNR/DNI status. Patient is currently requiring high levels of oxygen and therefore was not a candidate for home hospice. Family will continue to evaluate CODE STATUS and goals of care based on patient's progression. PROBLEMS: # Acute hypoxic respiratory failure 2/2 to community acquired PNA, pulmonary edema. Cannot r/o acute interstitial PNA, Obesity hypoventilation syndrome as contributing factors to hypoxia -s/p bronch 05/17/20, remained ventilated and later extubated successfully on 05/24/20 -slow improvement on vapotherm. 30 LPM at FiO2 45%. - Vancomycin (2 days), Ceftriaxone (14 days), Azithromycin (10 days), PO prednisone, Duoneb ATC, lasix daily. - Completed Fluconazole for 10 days (stopped 05/29/20) - WBC trending up, 12.0 - Resume abx: Zosyn as pneumonia progressed on CT scan from 06/04/20 - C/w acapella Q2 H while awake encouraged to use - Chest PT - hold lasix for now given rising bicarb #Hypotension: - BP trending low, 100/56 - lasix held - c/w metoprolol 100 mg BID - plan to titrate down BB # Atrial fibrillation with RVR, new this admission - S/p digoxin, four amiodarone boluses - Cardiology recs reviewed and appreciated. - 2D echo as above, globally wnl - per Dr. Hartley, amiodarone 400 mg bid for 1 week (through 06/05), with plan to reduce to 200 mg daily (plan to continue amiodarone for approx 3 months). Consider reducing dose of metoprolol in time, but not now. - Hgb stable, xarelto resumed. Cw CCB and BB BID. - Tele, afib. #Acute anemia: - Hgb 9.0, improved. s/p 1 unit. - fecal occult blood negative - no signs of bleeding on physical exam (no brusing, no MSK pain, neuro intact) - CXR unchanged - UA no hematuria - LDH 411. Haptoglobin pending. Retic pending. - Iron level 22. - heme consulted - Discussed with Dr. Montgomery (heme), rec venofer infusion 500 mg daily x 2 days # HTN -C/w CCB, lasix, BB # Obesity -Complicates care -BMI 59.2 -Optimize nutrition #Protein malnutrition -Low albumin -Appreciate full nutrition assessment # GI px -PPI #DVT px: hold xarelto. SCDs. TEDs. DISPOSITION: working with PT, still unable to stand. Goals of care: Discussed with Dr. James who had a goals of care discussion with the patient and her healthcare power of admitted attorneys. They have agreed to proceed with DNR/DNI status. Family prefers home hospice, however, patient's oxygen requirement currently does not allow her to be transferred for home hospice. Inpatient hospice may be an option and family will reevaluate goals of care depending on her progression in the next few days [facility]/I&O Vital Signs Date Time Temp Pulse Resp B/P (MAP) Pulse Ox O2 Delivery O2 Flow Rate FiO2 06/05/20 08:50 66 144/67 06/05/20 07:30 89 HVNI-Vapotherm 40.0 100 06/05/20 06:37 98.9 26 I&O- Last 24 Hours up to 6 AM 06/05/20 05:59 Intake Total 1310 ml Output Total 2725 ml Balance -1415 ml Laboratory Data 24H LABS Laboratory Tests 2 06/04/20 11:45: Bedside Glucose (Misc Panel) 140H 06/04/20 16:27: Bedside Glucose (Misc Panel) 111 06/04/20 20:54: Blood Gas Bicarbonate Standard 33.7H, Arterial Blood pH 7.512H, Arterial Blood Partial Pressure CO2 43.3, Arterial Blood Partial Pressure O2 69.9L, Arterial Blood Total CO2 35.3H, Arterial Blood HCO3 33.9H, Arterial Blood Base Excess 10.0H, Arterial Blood Oxygen Saturation 95.0 06/04/20 22:08: Bedside Glucose (Misc Panel) 104 06/04/20 23:11: Immature Granulocyte % (Auto) 1.0, Neutrophils (%) (Auto) 85.7H, Lymphocytes (%) (Auto) 7.1L, Monocytes (%) (Auto) 3.9, Eosinophils (%) (Auto) 2.1, Basophils (%) (Auto) 0.2, Neutrophils # (Auto) 8.9H, Lymphocytes # (Auto) 0.7L, Monocytes # (Auto) 0.4, Eosinophils # (Auto) 0.2, Basophils # (Auto) 0.0, Reticulocyte # (auto) 103.4H, Nucleated Red Blood Cells % (auto) 0.0, Percent Reticulocyte Count 3.5H, Reticulocyte Hemoglobin Equivalent 32.1, Anion Gap 7L, Glomerular Filtration Rate > 60.0, Lactic Acid Level 1.0, Calcium Level 7.2L, Magnesium Level 1.4L, Total Bilirubin 1.0, Aspartate Amino Transf (AST/SGOT) 18, Alanine Aminotransferase (ALT/SGPT) 30, Alkaline Phosphatase 100, Lactate Dehydrogenase 377H, Total Protein 4.6L, Albumin 1.8L, Albumin/Globulin Ratio 0.6L 06/05/20 04:46: Immature Granulocyte % (Auto) 0.7, Neutrophils (%) (Auto) 88.0H, Lymphocytes (%) (Auto) 5.8L, Monocytes (%) (Auto) 3.6, Eosinophils (%) (Auto) 1.7, Basophils (%) (Auto) 0.2, Neutrophils # (Auto) 10.6H, Lymphocytes # (Auto) 0.7L, Monocytes # (Auto) 0.4, Eosinophils # (Auto) 0.2, Basophils # (Auto) 0.0, Nucleated Red Blood Cells % (auto) 0.0, Anion Gap 4L, Glomerular Filtration Rate > 60.0, Calcium Level 7.8L, Magnesium Level 2.1, Total Bilirubin 1.1H, Aspartate Amino Transf (AST/SGOT) 20, Alanine Aminotransferase (ALT/SGPT) 33, Alkaline Phosphatase 103, Total Protein 5.1L, Albumin 1.9L, Albumin/Globulin Ratio 0.6L, Total Creatine Kinase 81, Creatine Kinase MB < 1.0, Creatine Kinase MB Relative Index 1.23, Troponin I < 0.02, RY-Vru-[id number]-Type Natriuretic Peptide 2654H 06/05/20 05:21: Coronavirus (COVID-19)(PCR) NEGATIVE 06/05/20 05:26: Blood Gas Bicarbonate Standard 33.5H, Arterial Blood pH 7.465H, Arterial Blood Partial Pressure CO2 49.7H, Arterial Blood Partial Pressure O2 55.5L, Arterial Blood Total CO2 36.5H, Arterial Blood HCO3 35.0H, Arterial Blood Base Excess 9.9H, Arterial Blood Oxygen Saturation 89.9L 06/05/20 08:16: Bedside Glucose (Misc Panel) 120H CBC/BMP Laboratory Tests 06/04/20 15:44 06/04/20 23:11 06/05/20 04:46 Microbiology Microbiology 06/03/20 Stool Occult Blood (JESSI) - Final, Complete 06/02/20 Stool Occult Blood (JESSI) - Final, Complete FAN DOMINGUEZ MD Jun 05, 2020 11:36
[2020-06-05] MEDS ORDERED: FUROSEMIDE 40MG/4ML VIAL (J1940) IV ONE (12:00)
--- NOTE | 2020-06-05 17:36 | IPNPDOC ---
Date Seen The patient was seen on 06/05/20. Progress Note SUBJECTIVE: Patient is a 65 year old lady bilateral lung infiltrates heart disease anemia hemoglobin better verty low total protein and albumin OBJECTIVE PHYSICAL EXAMINATION: VITAL SIGNS: Please see below. GENERAL: [awake alert ] HEENT: [normal ] CARDIOVASCULAR: regular sinus rhythm at the time of my exam . RESPIRATORY: [bilateral breath sound low 02sat ]. ABDOMINAL: EXTREMITIES: NEUROLOGICAL: PSYCHOLOGICAL: LABORATORY DATA, IMAGING STUDIES, MICROBIOLOGY: Please see below. Echocardiogram: . DVT prophylaxis ordered?: ASSESSMENT AND PLAN: This is a -year-old [RACE] [GENDER] with . PROBLEMS: 1. : [anemia ]. 2. : low serum protein . Plan; Serial CBC , Check SPEP and quantitative immunoglobulins DISPOSITION: . VS, I&O, 24H, [facility] Vital Signs/I&O Vital Signs Date Time Temp Pulse Resp B/P (MAP) Pulse Ox O2 Delivery O2 Flow Rate FiO2 06/05/20 15:00 59 30 114/59 (77) 91 HVNI-Vapotherm 40.0 100 06/05/20 12:00 99.2 I&O- Last 24 Hours up to 6 AM 06/05/20 06:00 Intake Total 1310 ml Output Total 2725 ml Balance -1415 ml Laboratory Data 24H LABS Laboratory Tests 2 06/04/20 20:54: Blood Gas Bicarbonate Standard 33.7H, Arterial Blood pH 7.512H, Arterial Blood Partial Pressure CO2 43.3, Arterial Blood Partial Pressure O2 69.9L, Arterial Blood Total CO2 35.3H, Arterial Blood HCO3 33.9H, Arterial Blood Base Excess 10.0H, Arterial Blood Oxygen Saturation 95.0 06/04/20 22:08: Bedside Glucose (Misc Panel) 104 06/04/20 23:11: Immature Granulocyte % (Auto) 1.0, Neutrophils (%) (Auto) 85.7H, Lymphocytes (%) (Auto) 7.1L, Monocytes (%) (Auto) 3.9, Eosinophils (%) (Auto) 2.1, Basophils (%) (Auto) 0.2, Neutrophils # (Auto) 8.9H, Lymphocytes # (Auto) 0.7L, Monocytes # (Auto) 0.4, Eosinophils # (Auto) 0.2, Basophils # (Auto) 0.0, Reticulocyte # (auto) 103.4H, Nucleated Red Blood Cells % (auto) 0.0, Percent Reticulocyte Count 3.5H, Reticulocyte Hemoglobin Equivalent 32.1, Anion Gap 7L, Glomerular Filtration Rate > 60.0, Lactic Acid Level 1.0, Calcium Level 7.2L, Magnesium Level 1.4L, Total Bilirubin 1.0, Aspartate Amino Transf (AST/SGOT) 18, Alanine Aminotransferase (ALT/SGPT) 30, Alkaline Phosphatase 100, Lactate Dehydrogenase 377H, Total Protein 4.6L, Albumin 1.8L, Albumin/Globulin Ratio 0.6L, Procalcitonin 0.06 06/05/20 04:46: Immature Granulocyte % (Auto) 0.7, Neutrophils (%) (Auto) 88.0H, Lymphocytes (%) (Auto) 5.8L, Monocytes (%) (Auto) 3.6, Eosinophils (%) (Auto) 1.7, Basophils (%) (Auto) 0.2, Neutrophils # (Auto) 10.6H, Lymphocytes # (Auto) 0.7L, Monocytes # (Auto) 0.4, Eosinophils # (Auto) 0.2, Basophils # (Auto) 0.0, Nucleated Red Blood Cells % (auto) 0.0, Anion Gap 4L, Glomerular Filtration Rate > 60.0, Ca lcium Level 7.8L, Magnesium Level 2.1, Total Bilirubin 1.1H, Aspartate Amino Transf (AST/SGOT) 20, Alanine Aminotransferase (ALT/SGPT) 33, Alkaline Phosphatase 103, Total Protein 5.1L, Albumin 1.9L, Albumin/Globulin Ratio 0.6L, Total Creatine Kinase 81, Creatine Kinase MB < 1.0, Creatine Kinase MB Relative Index 1.23, Troponin I < 0.02, ST-Fdn-C-Type Natriuretic Peptide 2654H 06/05/20 05:21: Coronavirus (COVID-19)(PCR) NEGATIVE 06/05/20 05:26: Blood Gas Bicarbonate Standard 33.5H, Arterial Blood pH 7.465H, Arterial Blood Partial Pressure CO2 49.7H, Arterial Blood Partial Pressure O2 55.5L, Arterial Blood Total CO2 36.5H, Arterial Blood HCO3 35.0H, Arterial Blood Base Excess 9.9H, Arterial Blood Oxygen Saturation 89.9L 06/05/20 08:16: Bedside Glucose (Misc Panel) 120H 06/05/20 11:29: Bedside Glucose (Misc Panel) 115 CBC/BMP Laboratory Tests 06/04/20 23:11 06/05/20 04:46 Microbiology Microbiology 06/03/20 Stool Occult Blood (JESSI) - Final, Complete 06/02/20 Stool Occult Blood (JESSI) - Final, Complete JAMAL ELISE MD Jun 05, 2020 17:36
[2020-06-05] MEDS: RIVAROXABAN 20 MG TAB (XARELTO) PO SCH (17:50)
[2020-06-05] MEDS: RAMELTEON 8 MG TAB (ROZEREM) PO PRN (20:50)
[2020-06-05] MEDS: ACETAMINOPHEN 325 MG/10.15 ML UDC GT PRN (20:50)
[2020-06-06] VITALS (19 sets, daily range): BP systolic 101–149; BP diastolic 53–72; O2SAT 85
[2020-06-06] MEDS: methylPREDNISolone 125MG 2ML VIAL IV SCH ×2 (00:41→08:18)
[2020-06-06] MEDS: PIPERACILLIN/TAZOBACTAM SOD 4.5 GM in D5W MINI-BAG PLUS 50 ML IV SCH ×2 (04:57→11:41)
[2020-06-06 05:14] LABS: BASO % 0.1 % (0.0-1.0); HEMATOCRIT 27.9 % (36.0-47.0); LYMPH # 0.6 10^3/uL (1.5-5.0); MEAN CORPUSCULAR HEMOGLOBIN 28.9 pg (27.0-33.0); MEAN CORPUSCULAR HGB CONC 32.3 g/dl (32.0-36.5); MEAN CORPUSCULAR VOLUME 89.7 fl (80.0-96.0); MONO # 0.2 10^3/uL (0.0-0.8); MONO % 1.2 % (0.0-5.0); NEUTROPHILS # 13.7 10^3/uL (1.5-8.5); NEUTROPHILS % 94.3 % (36.0-66.0); PLATELET COUNT, AUTOMATED 164 10^3/uL (150-450); RED BLOOD COUNT 3.11 10^6/uL (4.00-5.40); WHITE BLOOD COUNT 14.6 10^3/uL (4.0-10.0)
[2020-06-06 05:55] LABS: ALBUMIN 1.9 GM/DL (3.2-5.2); ALT/SGPT 26 U/L (12-78); BLOOD UREA NITROGEN 19 MG/DL (7-18); CALCIUM LEVEL 7.7 MG/DL (8.8-10.2); CARBON DIOXIDE LEVEL 34 MEQ/L (21-32); CHLORIDE LEVEL 100 MEQ/L (98-107); CREATININE FOR GFR 0.59 MG/DL (0.55-1.30); FERRITIN 1702 NG/ML (8-252); GLOMERULAR FILTRATION RATE > 60.0 (>45); GLUCOSE, FASTING 176 MG/DL (70-100); IRON (FE) 37 UG/DL (50-170); MAGNESIUM LEVEL 1.8 MG/DL (1.8-2.4); PERCENT SATURATION 23.9 % (13.2-45.0); POTASSIUM SERUM 3.1 MEQ/L (3.5-5.1); SODIUM LEVEL 141 MEQ/L (136-145); TOTAL IRON BINDING CAPACITY 155 UG/DL (250-450); TOTAL PROTEIN 5.2 GM/DL (6.4-8.2)
[2020-06-06] MEDS: SODIUM CHLORIDE 0.9% INJ 10 ML SYR IV PRN (06:09)
[2020-06-06] MEDS: SODIUM CHLORIDE 0.9% INJ 10 ML SYR IV SCH ×2 (06:15→18:18)
[2020-06-06] MEDS: LEVALBUTEROL 1.25 MG/0.5 ML CONCENTRATE NEB INH SCH ×3 (07:50→21:49)
[2020-06-06] MEDS ORDERED: POTASSIUM CHLORIDE 10 MEQ SR TABLET PO ONE (08:00)
[2020-06-06] MEDS: HumaLOG INSULIN (NovoLOG) PER UNIT SC SCH ×2 (08:15→11:41)
[2020-06-06] MEDS: LACTOBACILLUS ACIDOPHILUS CAP (BACID) PO SCH ×2 (08:16→11:41)
[2020-06-06] MEDS: K-PHOS NEUTRAL 250MG TABLET (SOD.PHOSPHATE/POT.PHOSPHATE) PO SCH (08:16)
[2020-06-06] MEDS: ASCORBIC ACID 500 MG TAB PO SCH (08:16)
[2020-06-06] MEDS: FOLIC ACID 1 MG TAB PO SCH (08:17)
[2020-06-06] MEDS: PANTOPRAZOLE 40MG TAB (PROTONIX) PO SCH (08:17)
[2020-06-06] MEDS: amLODIPine 10 MG TAB PO SCH (08:17)
[2020-06-06] MEDS: AMIODARONE 200 MG TAB (PACERONE) PO SCH (08:17)
[2020-06-06] MEDS: METOPROLOL TARTRATE 100 MG TAB PO SCH (08:20)
[2020-06-06 09:33] LABS: TOTAL PROTEIN 5.2 GM/DL (6.4-8.2)
[2020-06-06 11:17] LABS: ALBUMIN 2.22 GM/DL (3.29-5.55); ALBUMIN % 42.7 % (55.8-66.1); ALPHA-1-GLOBULIN % 11.1 % (2.9-4.9); ALPHA-1-GLOBULINS 0.58 GM/DL (0.17-0.41); ALPHA-2-GLOBULINS 0.99 GM/DL (0.42-0.99); ALPHA-2-GLOBULINS % 19.1 % (7.1-11.8); BETA-1-GLOBULINS 0.33 GM/DL (0.28-0.60); BETA-1-GLOBULINS % 6.3 % (4.7-7.2); BETA-2-GLOBULINS 0.41 GM/DL (0.19-0.55); BETA-2-GLOBULINS % 7.8 % (3.2-6.5); GAMMA GLOBULINS 0.68 GM/DL (0.65-1.58)
--- NOTE | 2020-06-06 11:53 | IPN ---
DATE: 06/05/2020 Dictated by David Holden M.D. in conjunction with attending Lizet James MD SUBJECTIVE: Ms. Whyte was seen and examined this morning. It appears that overnight, the patient was noted to become significantly more hypoxic. She was placed on high-flow nasal cannula and had required upwards of 50% FiO2 with saturations of 80% to 90%. The patient was transferred to the ICU and pulmonary critical care medicine was notified. She had previously been followed during her hospitalization for a pneumonia versus pulmonary edema and had developed acute on chronic hypoxia at that time. The patient was intubated earlier in her hospitalization. OBJECTIVE: VITAL SIGNS: Temperature 99.6 with a T-max of 100.7, pulse 63, respiratory rate 34, blood pressure 136/65, pulse oximetry 86% on high-flow nasal cannula with FiO2 of 100%. GENERAL: Patient is awake, alert, and oriented. She does not appear in any acute distress, although she does appear critically ill. She is lying in bed. HEENT: Atraumatic, normocephalic. Eyes are nonicteric. Trachea is midline. CARDIOVASCULAR: Normal S1, S2. There is a regular rate with a regular rhythm. There are no clicks, rubs, or murmurs auscultated. PULMONARY: The patient has scattered crackles throughout. There are diminished breath sounds in the left and right lower lung yip. There is good overall respiratory effort. There is symmetric chest expansion. ABDOMEN: The patient is morbidly obese. Her abdomen is soft, nondistended, and nontender. EXTREMITIES: The patient has bilateral 3+ pitting edema. She has full and equal pulses bilateral upper and lower extremities. NEUROLOGIC: No focal neurologic deficits. LABORATORY DATA: Hematology: White blood cell 12.0, hemoglobin 9.0, hematocrit 20.5, platelet count 182,000. Chemistries: Sodium 140, potassium 3.8, chloride 100, carbon dioxide 36, BUN 13, creatinine 0.47, fasting glucose 131. Calcium 7.8, magnesium 2.1, total bilirubin 1.1, AST 20, ALT 33, alkaline phosphatase 103. BNP 2654. IMAGING: CTA from 06/04 demonstrating diffuse patchy consolidations and infiltrates in the right lung, as well as patchy nodular opacities in the left lung with some areas of consolidation on the left upper lobe and left lower lobe. This appears to be worse from her previous imaging from her admission. ASSESSMENT/PLAN: Ms. Whyte is a 65-year-old female with a past medical history significant for chronic hypoxic respiratory failure, hypertension, and pulmonary hypertension who had originally presented with acute on chronic hypoxic respiratory failure secondary to a community-acquired pneumonia versus pulmonary edema and had moved out of the intensive care unit (ICU) after intubation and extubation, and then has returned to the intensive care unit (ICU) with worsening hypoxia. 1. Acute on hypoxic respiratory failure secondary to pneumonia versus pulmonary edema. The patient developed worsening hypoxia overnight. She was placed on high-flow nasal cannula with an FiO2 of 100%. Currently the patients saturations are in the mid 80s to 90 with this. She had received a CTA as the primary team had question whether she had developed a pulmonary embolism given her hypoxia; however, this was negative and demonstrates some worsening infiltrates in her left lung, which could possibly be a worsening pneumonia versus pulmonary edema. The patient was started on empiric antibiotics for possible hospital-acquired pneumonia including Zosyn 4.5 grams every 6 hours and additionally, Solu-Medrol was started for possible interstitial lung disease process. The patient has also received some diuresis as it was felt that she may have had some fluid or retention, which was leading to her worsening hypoxia. Given her current hypoxic state, the patient was notified that she would likely need to be electively intubated as she does not appear to be improving and is currently requiring a high amount of oxygen with an FiO2 of 100%. The patient was notified that if she is intubated, there is a risk that she will not be able to be extubated and will require a tracheostomy and subsequently discharged to a facility for chcf care. This was discussed with both the patient and the patients family, her health care proxy, Reuben, who is her son-in-law. At that time, the patient had mentioned that she would not want to be intubated and she updated her code status to a DO NOT RESUSCITATE / DO NOT INTUBATE. The idea of Hospice has been discussed with the patient; however, given her high oxygen demands, she would not be able to be discharged home on Hospice until she is not requiring as much oxygen as she currently is. For the time being, the patient is being treated for both her pneumonia and possibly fluid overload as well as being continued on anticoagualtion. We will continue the current treatment. 2. New onset atrial fibrillation with rapid ventricular response (RVR). The patient developed atrial fibrillation with RVR. She has been fairly rate controlled since her admission. Her atrial fibrillation is likely secondary to her severe pulmonary hypertension and hypoxia, which is causing this arrhythmia. She had received amiodarone loading earlier in her hospitalization and she is currently continued on p.o. Amiodarone. Currently, she is in sinus rhythm. She does go in and out of atrial fibrillation; however, will continue current treatment with amiodarone and Lopressor. Additionally, the patient is anticoagulated with Xarelto. 3. Pulmonary hypertension. The patient has pulmonary hypertension likely from longstanding chronic lung disease untreated such as sleep apnea. At this time, the patient has been notified that given her severe pulmonary hypertension, she likely would be a complicated intubation in terms of getting her extubated in the future, she would likely require tracheostomy. The patient had made the decision to update her code status to DO NOT RESUSCITATE / DO NOT INTUBATE. Currently, the patient is continued on vapo-therm high flow NC. 4. Morbid obesity. The patients body mass index (BMI) is 56.6. This certainly complicates care. 5. Deconditioning. The patient is deconditioned at her baseline. She is not very active. She should continue with physical therapy. Incentive spirometer was brought to the patients bedside for her to use. 6. Deep venous thrombosis prophylaxis. The patient is currently on anticoagulation with Xarelto. Will continue. 7. Hypertension. The patients hypertension is currently stable. I will discontinue her home medications. 8. Anemia. The patient had presented with an anemia with hemoglobin ranging from 8 to 9 currently stable. We will continue to monitor and transfuse p.r.n. 9. Gastrointestinal (GI) prophylaxis. The patient is continued on Protonix. Code status: DNR/DNI, updated MOLST Disposition: Overall patient has a very poor prognosis. Will continue to discuss goals of care with patient and her family Total critical care time spent not including procedures approx 45 mins I, Lizet James, have conducted an independent examination and history of the patient and agree with the plan as detailed by the resident above and discussed during rounds. ARELIS
--- NOTE | 2020-06-06 13:48 | IPNPDOC ---
Text Note Date of Service The patient was seen on 06/06/20. NOTE Subjective: Patient was seen and examined at bedside this morning. No overnight events reported to me. Patient is still on Vapotherm unchanged from prior. Patient denies being currently short of breath. Denies fevers or chills. Objective: Vital signs: Please see below Constitutional: Awake and alert, appears comfortable. Obese. ENT: Sclera are clear. Respiratory: Breath sounds decreased bilaterally. No use of accessory muscles. On Vapotherm Cardiovascular: RRR S1 and S2 are normal, no murmur Gastrointestinal: Abdomen is soft, non distended, non tender, BS present. Abd omen is obese. Musculoskeletal: Bilateral lower extremity nonpitting edema Neurologic: No focal neurological deficit. Mental Status: A&O x3, normal affect Skin: Warm, dry Imaging: CTA/PE (06/04/2020): 1. No acute pulmonary embolism. 2. Progressive diffuse consolidation in both lungs with new small right pleural effusion 3. Moderate to severe cardiomegaly. CXR (06/05/20): IMPRESSION: No significant change from the most recent prior exam when allowing for differences in positioning of the patient. The consolidation has progressed compared to June 02, 2020. ECHO: Echocardiogram (05/26/20): 1. Normal global left ventricular systolic function with mild concentric left ventricular hypertrophy. Assessment of the left ventricular diastolic function appeared to be normal. 2. Aortic valve sclerosis with trivial aortic stenosis, but no aortic regurgitation. 3. Isolated mitral annular calcification. Subjectively, the left atrium appeared to be mildly enlarged. 4. Mild tricuspid regurgitation with probably moderate pulmonary hypertension. Subjectively, the right atrium is enlarged. Assessment/plan: 65 y/o F with PMH of HTN, obesity, macular degeneration admitted for acute hypoxic respiratory failure 2/2 to community acquired PNA, recently extubated on 05/24/20, showing improvement in oxygen requirement. Downgraded to PCU 05/30/20. Patient developed increased oxygen requirement epigastric back to ICU. CT did not show acute pulmonary embolism. Dr. James from pulmonology was reconsulted. Conversation with the patient and her family, decision for DNR/DNI status. Patient is currently requiring high levels of oxygen and therefore was not a can didate for home hospice. May be eligible for inpatient hospice. PROBLEMS: # Acute hypoxic respiratory failure 2/2 to community acquired PNA, pulmonary edema. Cannot r/o acute interstitial PNA, Obesity hypoventilation syndrome as contributing factors to hypoxia - s/p bronch 05/17/20, remained ventilated and later extubated successfully on 05/24/20 - On vapotherm. - Vancomycin (2 days), Ceftriaxone (14 days), Azithromycin (10 days), PO prednisone, Duoneb ATC, lasix daily. - Completed Fluconazole for 10 days (stopped 05/29/20) - WBC trending up, 14.6 - Resume abx: Zosyn as pneumonia progressed on CT scan from 06/04/20. 06/06/2020 added Azithromycin and linezolid to treat for presumed VAP. - C/w acapella Q2 H while awake encouraged to use - Chest PT - hold lasix for now given rising bicarb #Hypotension: - BP trending low, 100/56 - lasix held - Decrease metoprolol to 75 BID. # Atrial fibrillation with RVR, new this admission - S/p digoxin, four amiodarone boluses - Cardiology recs reviewed and appreciated. - 2D echo as above, globally wnl - per Dr. Hartley, amiodarone 400 mg bid for 1 week (through 06/05), reduce to 200 mg daily (plan to continue amiodarone for approx 3 months). - Hgb stable, xarelto resumed. Cw CCB and BB - Tele, afib. #Acute anemia: - Hgb 9.0, improved. s/p 1 unit. - fecal occult blood negative - no signs of bleeding on physical exam (no brusing, no MSK pain, neuro intact) - CXR unchanged - UA no hematuria - LDH 411. Haptoglobin borderline Retic 3.5 - Iron level 22. - heme consulted - Discussed with Dr. Montgomery (heme), rec venofer infusion 500 mg daily x 2 days # HTN: C/w CCB, lasix, BB # Obesity: Complicates care. BMI 54.8. Optimize nutrition #Protein malnutrition: Low albumin, nutrition assessment # GI px: PPI # DVT px: xarelto. SCDs. TEDs. DISPOSITION: working with PT, still unable to stand. Goals of care: Discussed with Dr. James who had a goals of care discussion with the patient and her healthcare power of city attorney. They have agreed to proceed with DNR/DNI status. Family prefers home hospice, however, patient's oxygen requirement currently does not allow her to be transferred for home hospice. Inpatient hospice may be an option and family will reevaluate goals of care depending on her progression in the next few days VS,Edgardo, I+O VS, Edgardo, I+O Laboratory Tests 06/06/20 04:45 Vital Signs Date Time Temp Pulse Resp B/P (MAP) Pulse Ox O2 Delivery O2 Flow Rate FiO2 06/06/20 11:00 59 26 111/57 (75) 82 HVNI-Vapotherm 40.0 100 06/06/20 08:00 98.2 I&O- Last 24 Hours up to 6 AM 06/06/20 06:00 Intake Total 1195 ml Output Total 2360 ml Balance -1165 ml ASHANTI BELL MD Jun 06, 2020 13:48
[2020-06-06] MEDS ORDERED: AZITHROMYCIN INJ 500 MG, VIAL MATE ADAPTER 1 EACH in D5W 250 ML IV SCH (14:00)
[2020-06-06] MEDS ORDERED: SCOPOLAMINE 1MG TRANSDERMAL PATCH TOP PRN (15:00)
[2020-06-06] MEDS ORDERED: LINEZOLID 600 MG in IV 1 EA IV SCH (16:00)
[2020-06-06] MEDS ORDERED: AMIODARONE 200 MG TAB (PACERONE) PO ONE (21:00)
[2020-06-06] MEDS ORDERED: METOPROLOL TART 25 MG TABLET PO SCH (21:00)
[2020-06-07] MEDS: SODIUM CHLORIDE 0.9% INJ 10 ML SYR IV SCH ×2 (06:00→17:17)
[2020-06-07] MEDS: LEVALBUTEROL 1.25 MG/0.5 ML CONCENTRATE NEB INH SCH ×3 (08:00→20:00)
[2020-06-07] MEDS ORDERED: AMIODARONE 200 MG TAB (PACERONE) PO SCH (09:00)
--- NOTE | 2020-06-07 09:50 | IPN ---
DATE: 06/06/2020 SUBJECTIVE: Ms. Whyte was seen and examined this morning. She remains feeling hypoxic. She is continued on high-flow nasal cannula with FiO2 of 100% and saturations varying between the 80s to 90s. Her code status has been updated to DO NOT RESUSCITATE/DO NOT INTUBATE, and conversation has been had with the patient's family in regard to potentially continuing her on hospice, likely home hospice. Overnight there has been no adverse events reported. OBJECTIVE: VITAL SIGNS: Pulse 59, respiratory rate 26, blood pressure 11/57, pulse ox 82% on high-flow nasal cannula, FiO2 of 100%. GENERAL: Patient is awake, alert, oriented. She is no in acute distress, although she is gravely ill. She is lying in bed. HEENT: Atraumatic, normocephalic. Eyes are anicteric. Trachea is midline. Nasal cannula is in place. CARDIOVASCULAR: Normal S1, S2, regular rate and rhythm. There are no clicks, rubs, or murmurs. PULMONARY: Patient has scattered crackles, although improved from yesterday. There is continued diminished breath sounds in the lower lung yip. Overall there is symmetric chest expansion. ABDOMEN: Patient is morbidly obese. Her abdomen is soft, nondistended, nontender. EXTREMITIES: Patient has bilateral 2-3+ pitting edema, improving from previous examination. She has full and equal pulses in bilateral upper and lower extremities. NEUROLOGIC: No focal neurological deficits. LABORATORY DATA: Hematology: White blood cells 14.6, hemoglobin 9.0, hematocrit 27.9, platelet count 164. Chemistries: Sodium 141, potassium 3.1, chloride 100, CO2 of 34, BUN 19, creatinine 0.59, glucose 176, calcium 7.7, magnesium 1.8. Iron 37, TIBC 155, ferritin 1702. Total bilirubin 1.0, AST 14, ALT 26, alkaline phosphatase 111. ASSESSMENT AND PLAN: Ms. Whyte is a 65-year-old female with a past medical history significant for chronic hypoxic respiratory failure, hypertension, pulmonary hypertension, who had originally presented with acute on chronic hypoxic respiratory failure secondary to community-acquired pneumonia versus pulmonary edema and has been hospitalized in the intensive care unit with endotracheal intubation. Patient was extubated and had been transferred to the progressive care unit, where she developed worsening hypoxia and was returned to the intensive care unit (ICU) on high-flow nasal cannula with FiO2 of 100%. 1. Acute on chronic hypoxic respiratory failure secondary to pneumonia versus pulmonary edema. Patient currently has worsening hypoxia. Oxygen saturations of approximately 80%-85% on high-flow nasal cannula with FiO2 of 100%. Currently her most pressing issue at the time would be a worsening pneumonia versus pulmonary edema. She has been receiving diuresis and remains net negative. Additionally, the patient is continued on antibiotics with Zosyn for coverage of possible pneumonia with pseudomonas coverage. She is currently receiving Solu- Medrol 80 mg every 8 hours. Regarding the patient's respiratory status, if she were to be intubated she would likely not be extubated and require tracheostomy. She, however, was intubated earlier on in the hospitalization for her pneumonia. At the time she had received bronchial lavage, which did not demonstrate anything specific findings with the exception of hyperemic mucous with some scattered mucus and some plugging of the small airways but no gross pus. The patient's lungs in terms of her crazy paving pattern may be some form of interstitial lung disease, although she has been fairly unresponsive to steroids. At this point, the patient does remain DO NOT RESUSCITATE/DO NOT INTUBATE. She is continued on high-flow nasal cannula. The patient's care has been discussed with her healthcare proxy, Reuben, who is her son-in-law. He has been updated daily on her condition. Plan is to potentially consider hospice, either inpatient hospice or home hospice. The patient currently wishes to be home hospice; however, given her oxygen requirements, she likely would not be able to go home at this current time. 2. Atrial fibrillation with rapid ventricular response. During the patient's hospitalization, she had developed atrial fibrillation with rapid ventricular response (RVR). Currently she is in sinus rhythm and rate controlled. It is likely that her atrial fibrillation is secondary to severe pulmonary hypertension in the setting of acute on chronic hypoxia. She has received amiodarone loading. She is currently continued on amiodarone and remains in sinus rhythm. She is on anticoagulation with Xarelto. 3. Pulmonary hypertension. Patient has moderate to severe pulmonary hypertension, which is likely secondary to her chronic lung disease and untreated sleep apnea. Given this, likely suggests a poor prognosis overall for her given her severe pulmonary hypertension, and therefore she would be a complicated intubation in terms of future extubation and with possibly required tracheostomy. The patient herself has stated that she would not want to have a tracheostomy. Additionally, the patient and her son-in-law have been notified that if the patient were to be intubated and received a tracheostomy, that she would likely need to be sent to a facility for at least a duration of time, which would either be in [facility] or in [place]. These are things that the patient, herself, and the son-in-law do not wish to be done. Therefore, the patient does remain DO NOT RESUSCITATE/DO NOT INTUBATE and is going to be continued on high-flow nasal cannula, pending decision on whether the patient wants to be comfort measures only with hospice. 4. Morbid obesity. The patient is morbidly obese with an body mass index (BMI) 56.6 This complicated care. 5. Deconditioning. The patient is deconditioned. She is not very active at baseline. She should continue with physical therapy while inpatient. She has incentive spirometer at bedside. 6. Deep venous thrombosis prophylaxis. Patient is currently on Xarelto. 7. Hypertension. Patient's hypertension is currently stable. Will continue to monitor. 8. Anemia. Patient has anemia with a hemoglobin ranging from 8-9. It appears the primary team has consulted hematology/oncology, who is performing a separate workup. She has had some iron studies. She has elevated ferritin and low iron. 9. Gastrointestinal prophylaxis. Patient is currently on Protonix. DISPOSITION: Given the patient's multiple comorbidities in the setting of severe pulmonary hypertension and acute on chronic hypoxic respiratory failure requiring high-flow nasal cannula with FiO2 of 100%, the patient's overall prognosis is fairly poor. She remains critically ill. Currently the patient and her son-in-law are considering possible comfort measures only with home hospice. In the meantime, the patient is certainly requiring too much supplemental oxygen to be discharged on hospice. Therefore, goal will be to try and see if we can get down on some of the oxygen to send her home on home hospice, although that does not appear likely. Code status DNR/DNI Total critical care time spent not including procedures approx 35 mins I, Lizet James, have conducted an independent examination and history of the patient and agree with the plan as detailed by the resident above and discussed during rounds. ARELIS
[2020-06-07] MEDS: MORPHINE 2 MG/ML 1ML VIAL (J2270) IV PRN ×3 (17:15→22:51)
--- NOTE | 2020-06-07 20:44 | IPNPDOC ---
Text Note Date of Service The patient was seen on 06/07/20. NOTE Subjective: Patient was seen and examined at bedside this morning. No overnight events reported to me. Patient is still on Vapotherm unchanged from prior. at bedside. Spoke with patient and . Confirmed last evening wishes to be made comfort care only and removed off of vapotherm once all family members get a chance to visit today. Objective: Vital signs: Please see below Constitutional: Awake and alert, appears comfortable. Obese. ENT: Sclera are clear. Respiratory: Breath sounds decreased bilaterally. No use of accessory muscles. On Vapotherm Cardiovascular: RRR S1 and S2 are normal, no murmur Gastrointestinal: Abdomen is soft, non distended, non tender, BS present. Abdomen is obese. Musculoskeletal: Bilateral lower extremity nonpitting edema Neurologic: No focal neurological deficit. Mental Status: A&O x3, normal affect Skin: Warm, dry Imaging: CTA/PE (06/04/2020): 1. No acute pulmonary embolism. 2. Progressive diffuse consolidation in both lungs with new small right pleural effusion 3. Moderate to severe cardiomegaly. CXR (06/05/20): IMPRESSION: No significant change from the most recent prior exam when allowing for differences in positioning of the patient. The consolidation has progressed compared to June 02, 2020. ECHO: Echocardiogram (05/26/20): 1. Normal global left ventricular systolic function with mild concentric left ventricular hypertrophy. Assessment of the left ventricular diastolic function appeared to be normal. 2. Aortic valve sclerosis with trivial aortic stenosis, but no aortic regurgitation. 3. Isolated mitral annular calcification. Subjectively, the left atrium appeared to be mildly enlarged. 4. Mild tricuspid regurgitation with probably moderate pulmonary hypertension. Subjectively, the right atrium is enlarged. Assessment/plan: 65 y/o F with PMH of HTN, obesity, macular degeneration admitted for acute hypoxic respiratory failure 2/2 to community acquired PNA, recently extubated on 05/24/20, showing improvement in oxygen requirement. Downgraded to PCU 05/30/20. Patient developed increased oxygen requirement epigastric back to ICU on vapotherm. CT did not show acute pulmonary embolism. Dr. James from pulmonology was reconsulted. Conversation with the patient and her family, decision for DNR/DNI and DIRECT SUPPORT STAFF status. PROBLEMS: Plan of care and treatment below transitioned to comfort measures only on of yesterday evening. # Acute hypoxic respiratory failure 2/2 to community acquired PNA, pulmonary edema. Cannot r/o acute interstitial PNA, Obesity hypoventilation syndrome as contributing factors to hypoxia - s/p bronch 05/17/20, remained ventilated and later extubated successfully on 05/24/20 - On vapotherm then high flow oxygen with NRB once family members visit per patients wishes. - Vancomycin (2 days), Ceftriaxone (14 days), Azithromycin (10 days), PO prednisone, Duoneb ATC, lasix daily. - Completed Fluconazole for 10 days (stopped 05/29/20) - WBC trending up, 14.6 - Pneumonia progressed on CT scan from 06/04/20. 06/06/2020 added Azithromycin and linezolid to zosyn to treat for presumed VAP. - C/w acapella Q2 H while awake encouraged to use #Hypotension: - BP trending low, 100/56 - lasix held - Decrease metoprolol to 75 BID. # Atrial fibrillation with RVR, new this admission - S/p digoxin, four amiodarone boluses - Cardiology recs reviewed and appreciated. - 2D echo as above, globally wnl - per Dr. Hartley, amiodarone 400 mg bid for 1 week (through 06/05), reduce to 200 mg daily (plan to continue amiodarone for approx 3 months). - Hgb stable, xarelto resumed. Cw CCB and BB - Tele, afib. #Acute anemia: - Hgb 9.0, improved. s/p 1 unit. - fecal occult blood negative - no signs of bleeding on physical exam (no brusing, no MSK pain, neuro intact) - heme consulted: Discussed with Dr. Montgomery (heme), rec venofer infusion 500 mg daily x 2 days # HTN: C/w CCB, lasix, BB # Obesity: Complicates care. BMI 54.8. Optimize nutrition #Protein malnutrition: Low albumin, nutrition assessment # GI px: PPI # DVT px: xarelto. SCDs. TEDs. DISPOSITION: Hospice. DIRECT SUPPORT STAFF currently. VS,Fishbone, I+O VS, Fishbone, I+O Vital Signs Date Time Temp Pulse Resp B/P (MAP) Pulse Ox O2 Delivery O2 Flow Rate FiO2 06/06/20 21:49 82 HVNI-Vapotherm 40.0 100 06/06/20 17:00 66 34 06/06/20 16:00 98.6 109/57 (74) I&O- Last 24 Hours up to 6 AM 06/07/20 06:00 Intake Total 1775 ml Output Total 600 ml Balance 1175 ml ASHANTI BELL MD Jun 07, 2020 20:44
[2020-06-08] MEDS ORDERED: LORazepam 2 MG/ML VIAL IV STA (00:10)
[2020-06-08] MEDS ORDERED: LORazepam 2 MG/ML VIAL As Ordered ONE (00:13)
[2020-06-08] MEDS ORDERED: BISACODYL 10 MG SUPP PR PRN (01:00)
[2020-06-08] MEDS ORDERED: LORazepam 2 MG/ML VIAL IV PRN (01:00)
[2020-06-08] MEDS ORDERED: ONDANSETRON 4MG/2ML VIAL IV PRN (01:00)
[2020-06-08] MEDS: MORPHINE 2 MG/ML 1ML VIAL (J2270) IV PRN (02:53)
[2020-06-08 04:07] LABS: FREE KAPPA LIGHT CHAINS SERUM 18.5 mg/L (3.3-19.4); FREE KAPPA LIGHT CHAINS URINE 658.67 mg/L (0.63-113.79); FREE LAMBDA LIGHT CHAINS SERUM 17.2 mg/L (5.7-26.3); FREE LAMBDA LIGHT CHAINS URINE 111.78 mg/L (0.47-11.77); KAPPA/LAMBDA RATIO SERUM 1.08 (0.26-1.65); KAPPA/LAMBDA RATIO URINE 5.89 (1.03-31.76)
--- NOTE | 2020-06-08 10:24 | DS.PDOC ---
Discharge Summary General Date of Admission May 15, 2020 at 13:01 Date of Discharge 06/08/2020 Discharge Summary PROCEDURES PERFORMED DURING STAY: [None]. ADMITTING DIAGNOSES: 1. Acute hypoxic respiratory failure DISCHARGE DIAGNOSES: 1. Acute hypoxic respiratory failure COMPLICATIONS/CHIEF COMPLAINT: Acute Respiratory Failure. HISTORY OF PRESENT ILLNESS: Admitting H&P: The patient is a 65-year-old female admitted in transfer from [facility] where she presented on the with fever and shortness of breath. Empiric antibiotics were administered. A COVID test was done twice and was found negative. Her fever defervesced. White cell count improved. However, her oxygen requirement increased progressively and today she was found to be in hypoxic respiratory failure. Endotracheal intubation was performed and following the endotracheal tube intubation, she became hypotensiverequiring pressors. She was transferred to [facility] for further care. HOSPITAL COURSE: 65 y/o F with PMH of HTN, obesity, macular degeneration admitted for acute hypoxic respiratory failure 2/ to [facility], recently extubated on 05/24/20, showing improvement in oxygen requirement. Downgraded to PCU 05/30/20. Patient developed increased oxygen requirement epigastric back to ICU on vapotherm. CT did not show acute pulmonary embolism. Dr. James from pulmonology was reconsulted. Conversation with the patient and her family, decision for DNR/DNI and [employer] status. and passed overnight with comfort measures in place. ALLERGIES: Please see below. PHYSICAL EXAMINATION ON DISCHARGE: overnight. LABORATORY DATA: Please see below. IMAGING: Imaging: CTA/PE (06/04/2020): 1. No acute pulmonary embolism. 2. Progressive diffuse consolidation in both lungs with new small right pleural effusion 3. Moderate to severe cardiomegaly. CXR (06/05/20): IMPRESSION: No significant change from the most recent prior exam when allowing for differences in positioning of the patient. The consolidation has progressed compared to June 02, 2020. ECHO: Echocardiogram (05/26/20): 1. Normal global left ventricular systolic function with mild concentric left ventricular hypertrophy. Assessment of the left ventricular diastolic function appeared to be normal. 2. Aortic valve sclerosis with trivial aortic stenosis, but no aortic regurgitation. 3. Isolated mitral annular calcification. Subjectively, the left atrium appe ared to be mildly enlarged. 4. Mild tricuspid regurgitation with probably moderate pulmonary hypertension. Subjectively, the right atrium is enlarged. PROGNOSIS: DISPOSITION: . DISCHARGE CONDITION: []. TIME SPENT ON DISCHARGE: 31 minutes. Vital Signs/I&Os Vital Signs Date Time Temp Pulse Resp B/P (MAP) Pulse Ox O2 Delivery O2 Flow Rate FiO2 06/06/20 21:49 82 HVNI-Vapotherm 40.0 100 06/06/20 17:00 66 34 06/06/20 16:00 98.6 109/57 (74) Microbiology Microbiology 06/03/20 Stool Occult Blood (JESSI) - Final, Complete 06/02/20 Stool Occult Blood (JESSI) - Final, Complete Discharge Medications Scheduled Ascorbic Acid (Vitamin C) 250 Mg Tablet, 250 MG PO DAILY, (Reported) C,E,Zinc,Copper 11/[id number]/Lut (Ocuvite Adult 50 Plus Softgel) 1 Each Capsule, 1 CAP PO DAILY, (Reported) Garlic (Garlic) 500 Mg Capsule, 500 MG PO DAILY, (Reported) Metoprolol Tartrate (Metoprolol Tartrate) 50 Mg Tablet, 50 MG PO BID, (Reported) Allergies Coded Allergies: No Known Allergies (Unverified , 05/15/20) PER [facility] ASHANTI BELL MD Jun 08, 2020 10:24
== END 2020-06-08 04:35 | disposition expired | DRG 130 ==
LOC: M ICU 13:01 → M PCU 05-30 16:19 → M ICU 06-05 06:32
PROVIDERS: ADMIT Internal Medicine Pulmonary Disease; ATTEND General Practice
PROC: 5A1955Z Respiratory Ventilation, Greater than 96 Consecutive Hours (ICD-10-PCS; principal; 2020-05-15)
PROC: 0BJ08ZZ Inspection of Tracheobronchial Tree, Via Natural or Artificial Opening Endoscopic (ICD-10-PCS; 2020-05-17)
PROC: 02HV33Z Insertion of Infusion Device into Superior Vena Cava, Percutaneous Approach (ICD-10-PCS; 2020-05-17)
DX: J96.01 Acute respiratory failure with hypoxia (principal); E43 Unspecified severe protein-calorie malnutrition; N17.9 Acute kidney failure, unspecified; J81.1 Chronic pulmonary edema; J18.9 Pneumonia, unspecified organism; I27.20 Pulmonary hypertension, unspecified; I48.91 Unspecified atrial fibrillation; E66.2 Morbid (severe) obesity with alveolar hypoventilation; Z68.43 Body mass index [BMI] 50.0-59.9, adult; E83.42 Hypomagnesemia; I36.0 Nonrheumatic tricuspid (valve) stenosis; I10 Essential (primary) hypertension; H35.30 Unspecified macular degeneration; Z79.899 Other long term (current) drug therapy